=== PATIENT | male | born 1965 | race Caucasian/White ===

== ENCOUNTER 2018-08-09 11:53 | Inpatient (IN) | payer MEDICARE ==
[~2018-08-09] VITALS: Ht 177.8 cm; Wt 138.5 kg
[~2018-08-09 11:53] MED LIST: ASPIR 8181 MG PO; CYCLOBENZAPRINE10 MG PO; ESCITALOPRAM OX10 MG PO; GABAPENTIN300 MG PO; LASIX40 MG PO; LIPITOR80 MG PO; LISINOPRIL5 MG PO; METOPROLOL TART50 MG PO; MORGIDOX100 MG PO; MORPHINE SULFAT30 M2 PO; NORCO 10MG-325MG1 EA PO
--- OUTSIDE RECORDS SUMMARY | 2018-08-09 11:58 | XMS REPORT | Clinical Summary ---
Author Author [facility] Organization [facility] Address Unknown Phone Unavailable Care Team Providers Care Head Porter Baggage Name Role Phone Gurinder Capps DO PCP Allergies Comments Active Allergy Reactions Severity Noted Date Penicillins 02/12/2017 Medications End Date Status Medication Sig Dispensed Refills Start Date Active atorvastatin (LIPITOR) 80 Take 80 mg by 0 MG tablet mouth daily. Active metoprolol tartrate Take 50 mg by 0 (LOPRESSOR) 50 mg tablet mouth 2 (two) times a day. Active morPHINE (MS CONTIN) 30 Take 30 mg by 0 MG 12 hr tablet mouth every 12 (twelve) hours. Active furosemide (LASIX) 40 mg Take 40 mg by 0 tablet mouth 2 (two) times a day. Active aspirin (ECOTRIN) 81 MG Take 81 mg by 0 enteric coated tablet mouth daily. Active lisinopril Take 5 mg by 0 (PRINIVIL,ZESTRIL) 5 mg mouth daily. tablet Active HYDROcodone-acetaminophen Take 1 tablet 0 (NORCO) 10-325 mg per by mouth tablet every 6 (six) hours as needed for moderate pain (max 4 tablets per day). Active cyclobenzaprine Take 10 mg by 0 (FLEXERIL) 10 mg tablet mouth 3 (three) times a day. Active gabapentin (NEURONTIN) Take 600 mg 0 600 mg tablet by mouth 3 (three) times a day. Active escitalopram (LEXAPRO) 10 Take 10 mg by 0 MG tablet mouth daily. Active nystatin-triamcinolone Apply 0 (MYCOLOG) 100,000-0.1 topically as unit/gram-% ointment needed (both feet). Active insulin asp prt-insulin Inject 70 0 ASPART (NovoLOG 70/30) Units under 100 unit/mL (70-30) the skin injection daily with breakfast. Active insulin asp prt-insulin Inject 65 0 ASPART (NovoLOG 70/30) Units under 100 unit/mL (70-30) the skin injection nightly. 04/05/2018 doxycycline (VIBRAMYCIN) Take 1 20 capsule 0 100 MG capsule capsule (100 8 mg total) by mouth 2 (two) times a day for 10 days. 04/05/2018 clindamycin (CLEOCIN HCL) Take 1 30 capsule 0 300 MG capsule capsule (300 8 mg total) by mouth 3 (three) times a day for 10 days. Active Problems Problem Noted Date Cellulitis and abscess of foot 03/22/2018 Dehydration 02/13/2017 Encounters Care Team Description Date Type Specialty Teddy Cruz MD Morris, David, DO Berberian, Esteban N., MD Cellulitis and abscess of foot (Primary Dx); Sepsis, due to unspecified organism 03/22/2018 [facility] General Internal Medicine - Encounter 03/26/2018 after 08/08/2017 Family History Medical History Relation Name Comments Diabetes Father Heart disease Father Diabetes Mother Heart disease Mother Relation Name Status Comments Father Mother Social History Date Tobacco Use Types Packs/Day Years Used Never Smoker Smokeless Tobacco: Never Used Alcohol Use Drinks/Week oz/Week Comments No Sex Assigned at Date Recorded Not on file Industry Job Start Date Occupation Not on file Not on file Not on file Travel End Travel History Travel Start No recent travel history available. Last Filed Vital Signs Time Taken Vital Sign Reading 03/26/2018 3:58 PM CDT Blood Pressure 121/70 03/26/2018 3:58 PM CDT Pulse 71 03/26/2018 3:58 PM CDT Temperature 36.2 C (97.2 F) 03/26/2018 3:58 PM CDT Respiratory Rate 18 03/26/2018 3:58 PM CDT Oxygen Saturation 99% - Inhaled Oxygen - Concentration 03/22/2018 7:24 PM CDT Weight 141 kg (310 lb) 03/22/2018 7:24 PM CDT Height 177.8 cm (5' 10") 03/22/2018 7:24 PM CDT Body Mass Index 44.48 Plan of Treatment Health Maintenance Due Date Last Done Comments COLON CANCER SCREENING 2014 SHINGRIX VACCINE (1 of 2) 2014 INFLUENZA VACCINE 03/30/2018 HEPATITIS B VACCINES Aged Out No longer eligible based on patient's age to complete this topic IPV VACCINES Aged Out No longer eligible based on patient's age to complete this topic MENINGOCOCCAL VACCINE Aged Out No longer eligible based on patient's age to complete this topic Procedures Comments Procedure Name Priority Date/Time Associated Diagnosis POC GLUCOSE Routine 03/26/2018 4:39 PM CDT ZZESTIMATED GFR Timed 03/26/2018 11:51 AM CDT BASIC METABOLIC PANEL Timed 03/26/2018 11:51 AM CDT POC GLUCOSE Routine 03/26/2018 11:26 AM CDT POC GLUCOSE Routine 03/26/2018 7:00 AM CDT POC GLUCOSE Routine 03/25/2018 8:21 PM CDT POC GLUCOSE Routine 03/25/2018 4:47 PM CDT VANCOMYCIN LEVEL, TROUGH STAT 03/25/2018 12:12 PM CDT ECHOCARDIOGRAM 2D Routine 03/25/2018 COMPLETE W MMODE SPECTRAL 11:19 AM CDT COLOR DOPPLER ([id number]) POC GLUCOSE Routine 03/25/2018 11:14 AM CDT POC GLUCOSE Routine 03/25/2018 7:07 AM CDT POC GLUCOSE Routine 03/24/2018 8:54 PM CDT POC GLUCOSE Routine 03/24/2018 4:16 PM CDT POC GLUCOSE Routine 03/24/2018 11:10 AM CDT POC GLUCOSE Routine 03/24/2018 6:38 AM CDT POC GLUCOSE Routine 03/23/2018 8:37 PM CDT POC GLUCOSE Routine 03/23/2018 4:44 PM CDT POC GLUCOSE Routine 03/23/2018 11:45 AM CDT POC GLUCOSE Routine 03/23/2018 9:09 AM CDT BLOOD CULTURE, AEROBIC & Routine 03/22/2018 ANAEROBIC 11:05 PM CDT LACTIC ACID LEVEL, SEPSIS Timed 03/22/2018 - NOW AND REPEAT 2X EVERY 11:00 PM CDT 3 HOURS BLOOD CULTURE, AEROBIC & Routine 03/22/2018 ANAEROBIC 10:55 PM CDT XR FOOT 3+ VW RIGHT STAT 03/22/2018 9:35 PM CDT ECG ED PRELIMINARY Routine 03/22/2018 INTERPRETATION 9:05 PM CDT CO CRITICAL CARE, E/M Routine 03/22/2018 30-74 MINUTES 9:05 PM CDT ECG 12-LEAD STAT 03/22/2018 7:52 PM CDT ZZESTIMATED GFR STAT 03/22/2018 7:39 PM CDT BETA HYDROXYBUTYRATE STAT 03/22/2018 7:39 PM CDT COMPREHENSIVE METABOLIC STAT 03/22/2018 PANEL 7:39 PM CDT HC COMPLETE BLD COUNT STAT 03/22/2018 W/AUTO DIFF 7:39 PM CDT POC GLUCOSE Routine 03/22/2018 7:23 PM CDT after 08/08/2017 Results * POC glucose (03/26/2018 4:39 PM CDT) Only the most recent of 16 results within the time period is included. POC glucose 139 (H) 65 - 100 mg/dL [facility] Comment: PATHOLOGY AND Meter ID: [id number] GENOMIC MEDICINE Sharepoint Application Developer: Thania Sims Performing Organization Address City/State/Zipcode Phone Number [facility] [address] [place] [address] PATHOLOGY AND GENOMIC MEDICINE * Estimated GFR (03/26/2018 11:51 AM CDT) Only the most recent of 2 results within the time period is included. GFR Non Af Amer >90 mL/min/1.73 m2 [facility]OLOGY AND [employer] GFR Af Amer >90 mL/min/1.73 m2 [facility] Comment: PATHOLOGY AND Chronic kidney disease: <60 GENOMIC MEDICINE mL/min/1.73m2 Kidney failure: <15 mL/min/1.73m2 The estimated GFR is calculated from the IDMS-traceable Modification of Diet in Renal Disease Equation. The accuracy of the calculation is poor when the creatinine is normal. Calculated values >90 mL/min/1.73m2 are not reported. This equation has not been validated in children (<18 years), women, the elderly (>70 years), or ethnic groups other than Caucasians and Americans. Specimen Plasma specimen Performing Organization Address City/[facility]/Zipcode Phone Number [place] [address] [place], [place] [id number] [place] [address] AND [facility] * Basic metabolic panel (03/26/2018 11:51 AM CDT) Sodium 140 135 - 150 mEq/L [facility]OLOGY AND [employer] Potassium 3.8 3.5 - 5.0 mEq/L [facility] PATHOLOGY AND [facility] Chloride 100 98 - 112 mEq/L [facility] PATHOLOGY AND [employer] CO2 31 24 - 31 mmol/L [facility]OLOGY AND [employer] Anion gap 9@ANIO 7 - 15 mEq/L [facility]OLOGY AND [employer] BUN 9 7 - 18 mg/dL [facility]OLOGY AND [facility] Creatinine 0.60 (L) 0.70 - 1.20 mg/dL [facility] PATHOLOGY AND [facility] Glucose 214 (H) 65 - 100 mg/dL [facility]OLOGY AND [facility] Calcium 8.6 8.3 - 10.2 mg/dL [facility] PATHOLOGY AND [facility] Specimen Plasma specimen Performing Organization Address City/State/Zipcode Phone Number [place] [address] [place], [place] [phone] [place] [address] [facility] * Vancomycin level, trough (03/25/2018 12:12 PM CDT) Vancomycin, trough 15.3 10.0 - 20.0 ug/mL [facility] Comment: PATHOLOGY AND Therapeutic Ranges: [facility] MEDICINE Peak30.0 - 40.0 ug/mL Enouzr04.0 - 20.0 ug/mL Specimen Blood Performing Organization Address City/State/Zipcode Phone Number [facility] [place] [address] PATHOLOGY AND GENOMIC MEDICINE * Echocardiogram complete w contrast and 3D if needed (03/25/2018 11:19 AM CDT) Ao Root Diameter 2.94 cm [facility] AoV Area, Vmax 2.56 cm2 [facility] AoV Area, VTI 3.03 cm2 [facility] AoV Mean PG 1.56 mmHg [facility] AoV Peak PG 3.60 mmHg [facility] AoV Vmax 0.95 m/s [facility] AoV VTI 0.17 m [facility] IVS,d 0.88 cm [facility] IVS/LVPW,2D 0.96 [facility] LV,d 4.86 cm [facility] LV EF,2D 68.78 % [facility] LV,s 3.30 cm [facility] LVOT area 2.89 cm2 [facility] LVOT Diam,S 1.92 cm [facility] LVOT Vmax 0.84 m/s [facility] LVOT VTI 0.18 m [facility] LVPWD,d 0.92 cm [facility] TR Vpeak 2.58 mm/s [facility] MV E A ratio 1.34 mmHg [facility] TR pk grad 26.64 mmHg [facility] E wave decelartion time 162.21 msec [facility] MV Peak A Evan 0.76 m/s [facility] MV valve area p 1/2 4.68 cm2 [facility] method MV Peak E Evan 1.02 m/s [facility] MV stenosis pressure 1/2 47.04 ms [facility] time AV LVOT peak gradient 2.83 mmHg [facility] Ao Root Diameter 2.94 cm [facility] MV mean gradient 1.48 mmHg [facility] LV SYS VOL 44.13 ml [facility] LV COLLINS VOL 110.90 ml [facility] LV SV Teich 2D 66.78 ml [facility] LV Vol s Teich PSAX 44.13 ml [facility] LVOT CO 4.02 l/min [facility] LVOT HR for LVOT CO 77.28 bpm [facility] MR peak grad 3.48 mmHg [facility] MV Vmax 0.93 m [facility] MV VTI Tips 0.20 m [facility] AoV Vmn 0.58 [facility] IVS s 2D 1.09 [facility] LV FS Teich 2D 32.16 [facility] MV AE ratio 0.75 [facility] LV FS Cube 2D 32.16 [facility] LVOT Vmn 0.63 [facility] Aov area Vmn 3.09 cm2 [facility] LVOT mean grad 1.69 mmHg [facility] MAX Pred HR 166.68 [facility] 85 of MPHR 141.68 [facility] Calc MPHR 166.68 bpm [facility] IVS pct thck PLAX 23.48 % [facility] LV SV Cube 2D 79.16 ml [facility] LV vol d cube 2D 115.09 ml [facility] LV vol s cube 2D 35.93 ml [facility] LVPW pct thck PLAX 36.29 % [facility] LVPW s PLAX 1.26 cm [facility] MV Decel slope 6.26 m/s2 [facility] Pred Exer Dur R1 9.73 [facility] Pred METS R1 10.00 [facility] Velocity Ratio (V1/V2) 0.88 m/s [facility] EF 60.21 % [facility] E/A ratio 1.34 [facility] Narrative Performed At [facility] The left ventricle chamber size is normal. There is mild left ventricular Left Ventricular ejection fraction is 50 - 55%. Left atrium size is mildly dilated. No pericardial effusion Spectral Doppler shows pseudonormal pattern of left ventricular diastolic filling. Performing Organization Address [facility] Phone Number [facility] [address] [place] [address] * Blood culture, aerobic & anaerobic (03/22/2018 11:05 PM CDT) Only the most recent of 2 results within the time period is included. Blood culture isolate No growth after 5 days of [facility] DEPARTMENT OF incubation. PATHOLOGY AND Comment: GENOMIC MEDICINE Specimen Information Specimen Source: Blood Specimen Site: R [facility] Specimen Blood Performing Organization Address City/State/Zipcode Phone Number [facility] DEPARTMENT OF [address] [place] [address] PATHOLOGY AND GENOMIC MEDICINE * Lactic acid level, SEPSIS - Now and repeat 2x every 3 hours (03/22/2018 11:00 PM CDT) Lactic acid 1.7 0.5 - 2.2 mmol/L [facility]OLOGY AND GENOMIC MEDICINE Specimen Blood Performing Organization Address City/State/Zipcode Phone Number [facility] [address] [place] [address] PATHOLOGY AND GENOMIC MEDICINE * XR Foot 3+ Vw Right (03/22/2018 9:35 PM CDT) Narrative Performed At EXAMINATION:XR FOOT 3VW RIGHT [facility] CLINICAL HISTORY:heel ulcer COMPARISON:None. IMPRESSION: No evidence of acute right foot fracture or dislocation. No radiographic evidence of osteomyelitis. Mild foot soft tissue swelling. [facility]-[id number] Procedure Note Hm Interface, Radiology Results Incoming - 03/22/2018 9:41 PM CDT EXAMINATION: XR FOOT 3 VW RIGHT CLINICAL HISTORY: heel ulcer COMPARISON: None. IMPRESSION: No evidence of acute right foot fracture or dislocation. No radiographic evidence of osteomyelitis. Mild foot soft tissue swelling. [facility]-[id number] Performing Organization Address [facility]/Zipcode Phone Number [facility] [address] [place] [address] * ECG ED Preliminary Interpretation - NOT AN ORDER (03/22/2018 9:05 PM CDT) Narrative Performed At Teddy Cruz MD 03/23/20186:03 PM ECG ED Preliminary Interpretation - Not an Order Performed by: TEDDY CRUZ Authorized by: TEDDY CRUZ ECG reviewed by ED Physician in the absence of a senior manager quality assurance: yes Interpretation: Interpretation: abnormal Rate: ECG rate:100 ECG rate assessment: tachycardic Rhythm: Rhythm: sinus rhythm Ectopy: Ectopy: none QRS: QRS axis:Normal Conduction: Conduction: normal ST segments: ST segments:Normal T waves: T waves: inverted Inverted:V2 and V3 Q waves: Q waves:III * CRITICAL CARE (03/22/2018 9:05 PM CDT) Narrative Performed At Teddy Cruz MD 03/23/20186:03 PM Critical Care Performed by: TEDDY CRUZ Authorized by: TEDDY CRUZ Critical care provider statement: Critical care time (minutes):33 Critical care time was exclusive of:Separately billable procedures and treating other patients Critical care was necessary to treat or prevent imminent or life-threatening deterioration of the following conditions:Sepsis Critical care was time spent personally by me on the following activities:Blood draw for specimens, ordering and performing treatments and interventions, development of treatment plan with patient or surrogate, discussions with consultants, ordering and review of radiographic studies, ordering and review of laboratory studies, pulse oximetry, discussions with primary provider, evaluation of patient's response to treatment, re-evaluation of patient's condition, review of old charts and examination of patient Mike 'yes' if you are taking over critical care for this patient from another provider.: no * ECG 12 lead (03/22/2018 7:52 PM CDT) Ventricular rate 100 [facility] Atrial rate 100 [facility] CO interval 164 [facility] QRSD interval 86 [facility] QT interval 346 [facility] QTC interval 446 [facility] P axis 1 69 [facility] QRS axis 1 145 [facility] T wave axis 72 [facility] EKG impression Sinus rhythm with fusion [facility] MUSE complexes-Baseline artifact-Low voltage QRS-Left posterior fascicular block-Cannot rule out Inferior infarct , age undetermined-Cannot rule out Anterior infarct , age undetermined-Abnormal ECG-In automated comparison with ECG of 12-FEB-2017 22:12,-fusion complexes are now present-aberrant conduction is no longer present-CO interval has decreased-Left posterior fascicular block is now present- Performing Organization Address City/State/Zipcode Phone Number [facility] [address] [place] [address] * Beta hydroxybutyrate (03/22/2018 7:39 PM CDT) Beta hydroxybutyrate 1.58 (H) 0.02 - 0.27 mmol/L [facility]OLOGY AND GENOMIC MEDICINE Specimen Blood Performing Organization Address City/State/Zipcode Phone Number [address] [address] PATHOLOGY AND GENOMIC MEDICINE * CBC with platelet and differential (03/22/2018 7:39 PM CDT) WBC 10.9 4.2 - 11.0 k/uL [facility]OLOGY AND GENOMIC MEDICINE RBC 4.82 4.04 - 5.86 m/uL [facility] PATHOLOGY AND GENOMIC MEDICINE HGB 12.9 (L) 13.0 - 17.3 g/dL [facility] OF PATHOLOGY AND GENOMIC MEDICINE HCT 41.3 34.0 - 45.0 % [facility] OF PATHOLOGY AND GENOMIC MEDICINE MCV 85.7 80.0 - 98.0 fL [facility] PATHOLOGY AND GENOMIC MEDICINE MCH 26.8 (L) 27.0 - 34.0 pg [facility] OF PATHOLOGY AND GENOMIC MEDICINE MCHC 31.2 (L) 31.5 - 36.5 g/dL [facility] OF PATHOLOGY AND GENOMIC MEDICINE RDW - SD 41.4 37.0 - 51.0 fL [facility] OF PATHOLOGY AND GENOMIC MEDICINE MPV 10.2 7.4 - 10.4 fL [facility] OF PATHOLOGY AND GENOMIC MEDICINE Platelet count 330 150 - 400 k/uL [facility] PATHOLOGY AND GENOMIC MEDICINE Nucleated RBC 0.00 /100 WBC [facility] PATHOLOGY AND GENOMIC MEDICINE Neutrophils 69.8 (H) 36.0 - 66.0 % [facility] OF PATHOLOGY AND GENOMIC MEDICINE Lymphocytes 20.4 (L) 24.0 - 44.0 % [facility] OF PATHOLOGY AND GENOMIC MEDICINE Monocytes 8.2 (H) 0.0 - 6.0 % [facility] OF PATHOLOGY AND GENOMIC MEDICINE Eosinophils 0.6 0.0 - 6.0 % [facility] PATHOLOGY AND GENOMIC MEDICINE Basophils 0.4 0.0 - 1.2 % [facility] PATHOLOGY AND GENOMIC MEDICINE Immature granulocytes 0.6 0.0 - 1.0 % [facility] OF PATHOLOGY AND GENOMIC MEDICINE Specimen Blood Performing Organization Address City/State/Zipcode Phone Number [place] [address] [place] [address] PATHOLOGY AND GENOMIC MEDICINE * Comprehensive metabolic panel (03/22/2018 7:39 PM CDT) Sodium 136 135 - 150 mEq/L [facility] OF PATHOLOGY AND GENOMIC MEDICINE Potassium 4.2 3.5 - 5.0 mEq/L [facility] OF PATHOLOGY AND GENOMIC MEDICINE Chloride 94 (L) 98 - 112 mEq/L [facility] OF PATHOLOGY AND GENOMIC MEDICINE CO2 24 24 - 31 mmol/L [facility] PATHOLOGY AND GENOMIC MEDICINE Anion gap 18@ANIO (H) 7 - 15 mEq/L [facility] PATHOLOGY AND GENOMIC MEDICINE BUN 10 7 - 18 mg/dL [facility] OF PATHOLOGY AND GENOMIC MEDICINE Creatinine 0.60 (L) 0.70 - 1.20 mg/dL [facility] OF PATHOLOGY AND GENOMIC MEDICINE Glucose 275 (H) 65 - 100 mg/dL [facility] OF PATHOLOGY AND GENOMIC MEDICINE Calcium 9.4 8.3 - 10.2 mg/dL [facility] OF PATHOLOGY AND GENOMIC MEDICINE Protein 7.9 6.3 - 8.3 g/dL [facility] OF PATHOLOGY AND GENOMIC MEDICINE Albumin 3.5 3.5 - 5.0 g/dL [facility] OF PATHOLOGY AND GENOMIC MEDICINE A/G ratio 0.8 0.7 - 3.8 [facility] OF PATHOLOGY AND GENOMIC MEDICINE Alkaline phosphatase 63 0 - 129 U/L [facility] OF PATHOLOGY AND GENOMIC MEDICINE AST 17 10 - 50 U/L [facility] OF PATHOLOGY AND GENOMIC MEDICINE ALT 16 5 - 50 U/L [facility] OF PATHOLOGY AND GENOMIC MEDICINE Total bilirubin 0.4 0.2 - 1.2 mg/dL [facility] OF PATHOLOGY AND GENOMIC MEDICINE Specimen Plasma specimen Performing Organization Address City/State/Zipcode Phone Number [facility] [place] [address] [place] [address] PATHOLOGY AND GENOMIC MEDICINE after 08/08/2017 Insurance Payer Benefit Subscriber ID Type Phone Address Plan / Group [employer] xxxxxxxxxxx [facility] Advance Directives Patient has advance care planning documents on file. For more information, jaida fisher contact: Farooq Martin [address] [place] [address]
--- OUTSIDE RECORDS SUMMARY | 2018-08-09 11:58 | XMS REPORT ---
Author Author [facility] Address Unknown Phone Unavailable Care Team Providers Care Employment Programs Analyst Name Role Phone Unavailable Unavailable Payers Payer Name Policy Type Policy Number Effective Date Expiration Date Problems This patient has no known problems. Allergies, Adverse Reactions, Alerts Allergy Name Allergy Type Status Severity Reaction(s) Onset Date Inactive Date Treating Clinician Comments Penicillins DA Active U 2012-08-08 00:00:00 Medications This patient has no known medications.
--- NOTE | 2018-08-09 12:30 | NUR ---
patient took 50mg metoprolol and 5mg lisinopril; ORI Winters made aware
[2018-08-09] MEDS ORDERED: VANCOMYCIN 1GM/NS 250 ML 250 ML IV ONE (12:45)
[2018-08-09] MEDS ORDERED: GABAPENTIN600 MG (14:05)
[2018-08-09 14:13] LABS: BASOPHILS % 0.4 % (0.0-1.0); EOSINOPHILS % 0.4 % (0.0-6.0); HEMATOCRIT 42.4 % (38.2-49.6); HEMOGLOBIN 13.3 g/dL (14.0-18.0); LYMPHOCYTES # (AUTO) 2.1 (1.0-3.2); MEAN CORPUSCULAR HEMOGLOBIN 26.4 pg (28-32); MEAN CORPUSCULAR HGB CONC 31.4 g/dL (31-35); MEAN CORPUSCULAR VOLUME 84.3 fL (81-99); MONOCYTES # (AUTO) 0.4 (0.2-0.8); MONOCYTES % 4.6 % (4.4-11.3); NEUTROPHILS # (AUTO) 6.8 (2.1-6.9); NEUTROPHILS % 72.2 % (38.7-80.0); PLATELET COUNT 466 x10e3/uL (140-360); RED BLOOD COUNT 5.03 x10e6/uL (4.3-5.7); RED CELL DISTRIBUTION WIDTH 13.3 % (11.7-14.4)
[2018-08-09 14:24] LABS: INR 0.87; PROTHROMBIN TIME 12.7 seconds (11.9-14.5)
[2018-08-09 14:25] LABS: PARTIAL THROMBOPLASTIN TIME 32.3 seconds (23.8-35.5)
--- NOTE | 2018-08-09 14:30 | Diagnostic Imaging Report ---
Exam: Right foot, 3 views History: Swelling and bleeding right forefoot, concern for osteomyelitis Comparison: None. Findings: No acute, displaced fracture or dislocation. No definite cortical erosive or destructive change. Joint spaces are well-maintained. Mild soft tissue swelling about the forefoot. Impression: Soft tissue swelling of the forefoot without plain film evidence of osteomyelitis. If there is strong clinical concern, 3 phase nuclear medicine bone scan or MRI with and without contrast may be obtained for more sensitive evaluation. Signed by: Dr. Luis Antonio Mcdonnell M.D. on 08/09/2018 2:27 PM
[2018-08-09 14:33] LABS: ALANINE AMINOTRANSFERASE 19 IU/L (0-55); ALBUMIN 3.6 g/dL (3.5-5.0); ALBUMIN/GLOBULIN RATIO 0.7 (0.8-2.0); ALKALINE PHOSPHATASE 78 IU/L (40-150); ANION GAP 17.4 mmol/L (8-16); BLOOD UREA NITROGEN 6 mg/dL (7-26); BUN/CREATININE RATIO 7 (6-25); CALCIUM 9.9 mg/dL (8.4-10.2); CARBON DIOXIDE 27 mmol/L (22-29); CHLORIDE 94 mmol/L (98-107); CREATININE, SERUM 0.87 mg/dL (0.72-1.25); EST GLOMERULAR FILTRATION RATE > 60 ML/MIN (60-); GLUCOSE 333 mg/dL (74-118); MAGNESIUM 2.2 MG/DL (1.3-2.1); POTASSIUM 4.4 mmol/L (3.5-5.1); SODIUM 134 mmol/L (136-145)
[2018-08-09] MEDS ORDERED: SODIUM CHLORIDE 0.9% 1000ML 1,000 ML ONE (15:36)
[2018-08-09] MEDS ORDERED: FENTANYL CITRATE/PF 100MCG/2 ML INJ ONE (15:37)
[2018-08-09] MEDS ORDERED: FENTANYL CITRATE/PF 100MCG/2 ML INJ IV ONE (15:45)
[2018-08-09] MEDS ORDERED: SODIUM CHLORIDE 0.9% 1000ML 1,000 ML IV SCH (15:45)
[2018-08-09] MEDS: SODIUM CHLORIDE 0.9% 1000ML 1,000 ML IV SCH ×2 (18:09→19:01)
[2018-08-09] MEDS ORDERED: DEXTROSE 50% SYRINGE 50 ML IV PRN (19:15)
--- OUTSIDE RECORDS SUMMARY | 2018-08-09 19:32 | XMS REPORT | Clinical Summary ---
Author Author [facility] Organization [facility] Address Unknown Phone Unavailable Care Team Providers Care Insurance Business Analyst Name Role Phone Gurinder Capps DO PCP [...] Dx); Sepsis, due to unspecified organism 03/22/2018 [facility] General Internal Medicine - Encounter 03/26/2018 after [...] MMODE SPECTRAL 11:19 AM CDT COLOR DOPPLER ([id number]) POC GLUCOSE Routine 03/25/2018 11:14 AM CDT [...] PRELIMINARY Routine 03/22/2018 INTERPRETATION 9:[address] CRITICAL CARE, E/M Routine 03/22/2018 30-74 MINUTES [...] glucose 139 (H) 65 - 100 mg/dL [facility] Comment: PATHOLOGY AND Meter ID: [id number] GENOMIC MEDICINE Physician Aide: Thania Sims Performing Organization Address City/State/Zipcode Phone Number [facility] [address] [place] [address] PATHOLOGY AND GENOMIC MEDICINE * Estimated GFR (03/26/2018 11:51 AM CDT) Only the most recent of 2 results within the time period is included. GFR Non Af Amer >90 mL/min/1.73 m2 [facility] PATHOLOGY AND [employer] MEDICINE GFR Af Amer >90 mL/min/1.73 m2 [facility] Comment: PATHOLOGY AND Chronic kidney [...] Americans. Specimen Plasma specimen Performing Organization Address City/[facility]/Zipcode Phone Number [place] [address] [place], [place] [id number] [place] [address] AND [employer] [facility] * Basic metabolic panel (03/26/2018 11:51 AM CDT) Sodium 140 135 - 150 mEq/L [facility]OLOGY AND [employer] MEDICINE Potassium 3.8 3.5 - 5.0 mEq/L [facility] PATHOLOGY AND [employer] MEDICINE Chloride 100 98 - 112 mEq/L [facility] PATHOLOGY AND [employer] MEDICINE CO2 31 24 - 31 mmol/L [facility] PATHOLOGY AND [employer] MEDICINE Anion gap 9@ANIO 7 - 15 mEq/L [facility] PATHOLOGY AND [employer] MEDICINE BUN 9 7 - 18 mg/dL [facility]OLOGY AND [employer] MEDICINE Creatinine 0.60 (L) 0.70 - 1.20 mg/dL [facility] PATHOLOGY AND [employer] MEDICINE Glucose 214 (H) 65 - 100 mg/dL [facility] PATHOLOGY AND [employer] MEDICINE Calcium 8.6 8.3 - 10.2 mg/dL [facility] PATHOLOGY AND [employer] MEDICINE Specimen Plasma specimen Performing Organization Address City/State/Zipcode Phone Number [place] [address] [place], [place] [id number] [place] [address] [employer] [facility] * Vancomycin level, trough (03/25/2018 12:12 PM CDT) Vancomycin, trough 15.3 10.0 - 20.0 ug/mL [facility] Comment: PATHOLOGY AND Therapeutic Ranges: [facility] MEDICINE Peak30.0 - 40.0 ug/mL Relabt70.0 - 20.0 ug/mL Specimen Blood Performing Organization Address City/State/Zipcode Phone Number [facility] [place] [address] PATHOLOGY AND GENOMIC MEDICINE * Echocardiogram complete [...] left ventricular diastolic filling. Performing Organization Address [facility] Phone Number [facility] [address] [place] [address] * Blood culture, aerobic & anaerobic (03/22/2018 11:05 PM CDT) Only the most recent of 2 results within the time period is included. Blood culture isolate No growth after 5 days of [facility] DEPARTMENT OF incubation. PATHOLOGY AND Comment: GENOMIC MEDICINE Specimen Information Specimen Source: Blood Specimen Site: R [facility] Specimen Blood Performing Organization Address City/State/Zipcode Phone Number [facility] DEPARTMENT OF [address] [place] [address] PATHOLOGY AND GENOMIC MEDICINE * Lactic acid level, SEPSIS - Now and repeat 2x every 3 hours (03/22/2018 11:00 PM CDT) Lactic acid 1.7 0.5 - 2.2 mmol/L [facility] PATHOLOGY AND GENOMIC MEDICINE Specimen Blood Performing Organization Address City/State/Zipcode Phone Number [facility] [address] [place] [address] PATHOLOGY AND GENOMIC MEDICINE * XR Foot 3+ Vw Right (03/22/2018 9:35 PM CDT) Narrative Performed At EXAMINATION:XR FOOT 3VW RIGHT [facility] CLINICAL HISTORY:heel ulcer COMPARISON:None. IMPRESSION: No evidence of acute right foot fracture or dislocation. No radiographic evidence of osteomyelitis. Mild foot soft tissue swelling. [facility]-[id number] Procedure Note Hm Interface, Radiology Results Incoming - 03/22/2018 9:41 PM CDT EXAMINATION: XR FOOT 3 VW RIGHT CLINICAL HISTORY: heel ulcer COMPARISON: None. IMPRESSION: No evidence of acute right foot fracture or dislocation. No radiographic evidence of osteomyelitis. Mild foot soft tissue swelling. [facility]-[id number] Performing Organization Address [facility]/Zipcode Phone Number [facility] [address] [place] [address] * ECG ED Preliminary Interpretation - NOT AN ORDER (03/22/2018 9:05 PM CDT) Narrative Performed At Teddy Cruz MD 03/23/20186:03 PM ECG ED Preliminary Interpretation - Not an Order Performed by: TEDDY CRUZ Authorized by: TEDDY CRUZ ECG reviewed by ED Physician in the absence of a mixed crop farmer: yes Interpretation: Interpretation: abnormal Rate: ECG rate:100 [...] [facility] Atrial rate [address] interval 164 [facility] QRSD interval 86 [facility] QT interval 346 [facility] QTC interval 446 [facility] P axis 1 69 [facility] QRS axis 1 145 [facility] T wave axis 72 [facility] EKG impression Sinus rhythm with fusion [facility] MUSE complexes-Baseline artifact-Low voltage QRS-Left posterior fascicular block-Cannot rule out Inferior infarct , age undetermined-Cannot rule out Anterior infarct , age undetermined-Abnormal ECG-In automated comparison with ECG of 12-FEB-2017 22:12,-fusion complexes are now present-aberrant conduction is no longer present-CT interval has decreased-Left posterior fascicular block is now present- Performing Organization Address City/State/Zipcode Phone Number [facility] [address] [place] [address] * Beta hydroxybutyrate (03/22/2018 7:39 PM CDT) Beta hydroxybutyrate 1.58 (H) 0.02 - 0.27 mmol/L [facility] OF PATHOLOGY AND GENOMIC MEDICINE Specimen Blood Performing Organization Address City/State/Zipcode Phone Number [address] [address] PATHOLOGY AND GENOMIC MEDICINE * CBC with platelet and differential (03/22/2018 7:39 PM CDT) WBC 10.9 4.2 - 11.0 k/uL [facility] PATHOLOGY AND GENOMIC MEDICINE RBC 4.82 4.04 - 5.86 m/uL [facility] PATHOLOGY AND GENOMIC MEDICINE HGB 12.9 (L) 13.0 - 17.3 g/dL [facility] PATHOLOGY AND GENOMIC MEDICINE HCT 41.3 34.0 - 45.0 % [facility] PATHOLOGY AND GENOMIC MEDICINE MCV 85.7 80.0 - 98.0 fL [facility] PATHOLOGY AND GENOMIC MEDICINE MCH 26.8 (L) 27.0 - 34.0 pg [facility] PATHOLOGY AND GENOMIC MEDICINE MCHC 31.2 (L) 31.5 - 36.5 g/dL [facility] PATHOLOGY AND GENOMIC MEDICINE RDW - SD 41.4 37.0 - 51.0 fL [facility] PATHOLOGY AND GENOMIC MEDICINE MPV 10.2 7.4 - 10.4 fL [facility] DEPARTMENT OF PATHOLOGY AND GENOMIC MEDICINE Platelet count 330 150 - 400 k/uL [facility] PATHOLOGY AND GENOMIC MEDICINE Nucleated RBC 0.00 /100 WBC [facility] PATHOLOGY AND GENOMIC MEDICINE Neutrophils 69.8 (H) 36.0 - 66.0 % [facility] PATHOLOGY AND GENOMIC MEDICINE Lymphocytes 20.4 (L) 24.0 - 44.0 % [facility] PATHOLOGY AND GENOMIC MEDICINE Monocytes 8.2 (H) 0.0 - 6.0 % [facility] PATHOLOGY AND GENOMIC MEDICINE Eosinophils 0.6 0.0 - 6.0 % [facility] PATHOLOGY AND GENOMIC MEDICINE Basophils 0.4 0.0 - 1.2 % [facility] PATHOLOGY AND GENOMIC MEDICINE Immature granulocytes 0.6 0.0 - 1.0 % [facility] PATHOLOGY AND GENOMIC MEDICINE Specimen Blood Performing Organization Address City/State/Zipcode Phone Number [place] [address] [place] [address] PATHOLOGY AND GENOMIC MEDICINE * Comprehensive metabolic panel (03/22/2018 7:39 PM CDT) Sodium 136 135 - 150 mEq/L [facility] PATHOLOGY AND GENOMIC MEDICINE Potassium 4.2 3.5 - 5.0 mEq/L [facility] PATHOLOGY AND GENOMIC MEDICINE Chloride 94 (L) 98 - 112 mEq/L [facility] PATHOLOGY AND GENOMIC MEDICINE CO2 24 24 - 31 mmol/L [facility] OF PATHOLOGY AND GENOMIC MEDICINE Anion gap 18@ANIO (H) 7 - 15 mEq/L [facility] PATHOLOGY AND GENOMIC MEDICINE BUN 10 7 - 18 mg/dL [facility] PATHOLOGY AND GENOMIC MEDICINE Creatinine 0.60 (L) 0.70 - 1.20 mg/dL [facility] PATHOLOGY AND GENOMIC MEDICINE Glucose 275 (H) 65 - 100 mg/dL [facility] PATHOLOGY AND GENOMIC MEDICINE Calcium 9.4 8.3 - 10.2 mg/dL [facility] PATHOLOGY AND GENOMIC MEDICINE Protein 7.9 6.3 - 8.3 g/dL [facility] PATHOLOGY AND GENOMIC MEDICINE Albumin 3.5 3.5 - 5.0 g/dL [facility] PATHOLOGY AND GENOMIC MEDICINE A/G ratio 0.8 0.7 - 3.8 [facility] PATHOLOGY AND GENOMIC MEDICINE Alkaline phosphatase 63 0 - 129 U/L [facility] PATHOLOGY AND GENOMIC MEDICINE AST 17 10 - 50 U/L [facility] PATHOLOGY AND GENOMIC MEDICINE ALT 16 5 - 50 U/L [facility] PATHOLOGY AND GENOMIC MEDICINE Total bilirubin 0.4 0.2 - 1.2 mg/dL [facility] PATHOLOGY AND GENOMIC MEDICINE Specimen Plasma specimen Performing Organization Address City/State/Zipcode Phone Number [facility] [place] [address] [place] [address] PATHOLOGY AND GENOMIC MEDICINE after 08/08/2017 Insurance Payer Benefit Subscriber ID Type Phone Address Plan / Group [employer] CIGNA xxxxxxxxxxx [facility] AD[facility] Advance Directives Patient has advance care planning documents on file. For more information, jaida fisher contact: Farooq Martin [address] [facility] [address]
[2018-08-09] MEDS: INSULIN REGULAR, HUMAN 100 UNIT/1 ML 3ML VIAL SQ SCH (21:00)
[2018-08-09 22:39] LABS: CHOL/HDL RATIO 2.6 (3.9-4.7)
--- NOTE | 2018-08-09 22:42 | NUR ---
RECEIVED PATIENT FROM THE ER PER STRETCHER, PLACED IN ROOM 179 IN THE BED, NO COMPLAINTS AT THIS TIME. CALL LIGHT REMAIN IN REACH. ASSSESSMENT IN PROGRESS.
--- NOTE | 2018-08-09 23:04 | History and Physical ---
PRIMARY CARE PHYSICIANS 1. Dr. Gurinder Capps. 2. Air Defence Officer, Dr. José Luis Ernandez. CHIEF COMPLAINT: Foot infection. HISTORY OF PRESENT ILLNESS: This is a 52-year-old male with a history of diabetes mellitus type 2 and diabetic foot ulcer, now developing an ulcer/infection at the right heel and right 5th toe. Has been managed by Dr. Ernandez, but now has been sent to be admitted for further management. Patient has some pain in the foot, about 4 to 5 out of 10. He denies any fever or chills. He denies any nausea, vomiting, or diarrhea. PAST MEDICAL HISTORY: Diabetes mellitus type 2; diabetic foot ulcer, status post left foot 4th and 5th digit amputations; myocardial infarction, status post stent in 2002. Patient is status post coronary artery bypass grafting in 2013, congestive heart failure, carotid artery stenosis as well as carotid endarterectomy. PAST SURGICAL HISTORY: Coronary artery bypass grafting 2013, coronary artery stents in 2002, left foot 4th and 5th digit amputations, and carotid endarterectomy. ALLERGIES: PER ELECTRONIC MEDICAL RECORD. FAMILY/SOCIAL HISTORY: Patient is . No alcohol or cigarettes. MEDICATIONS: Per electronic medical record. REVIEW OF SYSTEMS: Denies any fevers, chills, sweats, nausea, vomiting, diarrhea, headache, back pain, chest pain or vision change. PHYSICAL EXAM VITAL SIGNS: Reviewed. GENERAL: A tired-appearing man resting in bed. HEENT: Anicteric. CARDIOVASCULAR: Normal S1 and S2. LUNGS: He has moderate breath sounds. ABDOMEN: Soft, nontender, and nondistended. EXTREMITIES: He has bilateral lower extremity edema. He has left foot 4th and 5th digits absent with well-healed scar. He has a right foot heel with gangrenous changes. He has right foot 5th digit with gangrenous changes. SKIN: Dry. PSYCHIATRIC: Flat affect. NEUROLOGICAL: Alert, oriented x3. Moving all extremities. LABS: Reviewed. MEDICATIONS: Reviewed. ASSESSMENT AND PLAN: This is a 52-year-old man 1. Right heel gangrenous changes/right foot 5th digit gangrenous changes/diabetic foot ulcer. 2. Diabetes mellitus type 2. 3. Severe obesity, body mass index 40.6. 4. Malignant hypertension, blood pressure is as high as 208/109. 5. Lactic acidemia. 6. Coronary artery disease with history of stents. 7. Congestive heart failure, likely diastolic. 8. Hypertension. 9. Hyperlipidemia. PLAN 1. Continue IV vancomycin. 2. IV aztreonam. 3. Wound cultures and blood cultures. 4. Obtain hemoglobin A1c and lipid panel. 5. Podiatry consultation. 6. Diabetic diet. 7. Continue antihypertensive medications. 8. Continue anticholesterol medications. 9. Utilize Lovenox and Pepcid for prophylaxis. 10. Disposition: Podiatry consultation. Cultures on followup. Job#: [id number]
[2018-08-09 23:19] VITALS: BP 172/87
[2018-08-09] MEDS: ATORVASTATIN 40 MG TAB PO SCH (23:57)
[2018-08-09] MEDS: NIFEDIPINE CR 30 MG TAB PO SCH (23:57)
[2018-08-10] VITALS (8 sets, daily range): BP systolic 103–172; BP diastolic 61–87
[2018-08-10] MEDS: ENOXAPARIN SOD INJ 40 MG/0.4 ML SYR SC SCH ×2 (00:04→16:27)
[2018-08-10] MEDS ORDERED: GABAPENTIN 300 MG CAP PO ONE (00:15)
[2018-08-10] MEDS ORDERED: CYCLOBENZAPRINE HCL 10 MG TAB PO ONE (00:15)
[2018-08-10] MEDS ORDERED: AZTREONAM 1 GM VIAL ONE (05:35)
[2018-08-10] MEDS ORDERED: SODIUM CHLORIDE 0.9% 250ML 0 ML ONE (05:37)
[2018-08-10] MEDS: AZTREONAM 1 GM/NS 50 ML 50 ML IV SCH ×3 (06:00→22:45)
--- NOTE | 2018-08-10 06:48 | NUR ---
PATIENT RESTING IN BED, RECEIVING IV ANTIBIOTIC, CALL LIGHT REMAIN IN REACH. DRESSING REMAIN INTACT. WILL CONTINUE TO MONITOR.
[2018-08-10] MEDS ORDERED: MORPHINE SULFATE INJ 4 MG/ML INJ ONE (07:03)
[2018-08-10] MEDS: FAMOTIDINE 20 MG TAB PO SCH ×2 (07:10→16:26)
--- NOTE | 2018-08-10 07:25 | NUR ---
REPORT GIVEN TO AM NURSE.
[2018-08-10] MEDS: CYCLOBENZAPRINE HCL 10 MG TAB PO SCH ×3 (08:50→21:14)
[2018-08-10] MEDS: ESCITALOPRAM OXALATE 10 MG TAB PO SCH (08:50)
[2018-08-10] MEDS: METOPROLOL TARTRATE 50 MG TAB PO SCH ×2 (08:50→16:27)
[2018-08-10] MEDS: LISINOPRIL 10 MG TAB PO SCH (08:50)
[2018-08-10] MEDS: VANCOMYCIN 1GM/NS 250 ML 250 ML IV SCH ×2 (08:50→21:13)
[2018-08-10] MEDS: GABAPENTIN 300 MG CAP PO SCH ×3 (08:50→21:14)
[2018-08-10] MEDS: INSULIN REGULAR, HUMAN 100 UNIT/1 ML 3ML VIAL SQ SCH ×4 (08:55→21:00)
--- NOTE | 2018-08-10 10:30 | NUR ---
CASE MANAGEMENT INITIAL ASSESSMENT Vacuum Spindle Sander to bedside to discuss plan of care with patient/family. CM/SW role and care transitions discussed. Anticipated discharge plan discussed along with duration of care. CM/SW discussed patients right to make decisions in care. CM/SW work hours given. Patient lives: IN OWN HOUSE WITH FAMILY Admit/Transfer: VIA ED FROM HOME POA/Emergency contact: CECI [phone] Current/Previous Home Health: [facility] PCP/Follow-up Care: NEGRITA Current/Previous DME: [employer] WHEN NEEDED Other Services: NONE Employment Status: RETIRED Areas of Concerns: NONE Referral Needs: NONE Education Needs: NONE IMM/RIVERA given and signed (if applicable): RIVERA Goal for discharge: RETURN HOME INDEPENDENTLY CM/SW left business card at the bedside with contact information. Name and number was also written on the patients whiteboard. Patient verbalized understanding of discussion. CM will follow-up with ongoing discharge and transition of care needs.
[2018-08-10] MEDS: MORPHINE SULFATE 2 MG/ML SYR IV PRN (12:20)
[2018-08-10] MEDS: MORPHINE SULFATE INJ 4 MG/ML INJ IV PRN ×2 (12:20→18:40)
--- NOTE | 2018-08-10 14:26 | NUR ---
Nutrition Screen Note RD Recommendation for Physician: -Continue ADA diet as ordered -Pt refused diet education -08/10 Plan of Care: RD following, monitoring for tolerance and adequacy Nutrition reason for involvement: Dx unstageable wound Primary Diagnose(s): 1. Right heel gangrenous changes/right foot 5th digit gangrenous changes/diabetic foot ulcer. PMH: DM, CAD, diabetic foot ulcer, AL, CHF, HLD, HTN Ht: 70in Wt: 313lb BMI: 44.9kg/m2 IBW: 166lb RD Assessment: (08/10) Chart reviewed. Labs and meds reviewed. 52yo M, who is admitted for foot infection. HbA1c at 14.3%. During my visit, pt reports good appetite with 100% recorded PO intake. No GI complains noted. LBM 08/09. Pt has no teeth or denture and refused chopped diet when offered. Pt denies any swallowing difficulty. Pt has had hx of DM for over 20 years and been through multiple diabetes education. Pt refused any further diet education. Will continue to monitor and follow. Current Diet: ADA diet Malnutrition Evaluation (08/10) The patient does not meet criteria for a specified degree of malnutrition at this time. Will re-evaluate at follow-up as appropriate. Diet Education Needs Assessment: Diet education indicated, pt refused. Nutrition Care Level: low Signed: Marilynn Staley, , RD, LD
[2018-08-10] MEDS ORDERED: SODIUM CHLORIDE 0.9% 250ML 250 ML ONE (18:41)
--- NOTE | 2018-08-10 19:20 | NUR ---
PATIENT RECEIVED. PATIENT IS RESTING IN BED, AAOX3. RESP EVEN AND UNLABORED. NO ACUTE DISTRESS NOTED. RIGHT 5TH TOE GANGRENE NOTED, RIGHT HEEL PRESSURED WOUND NOTED. PATIENT STATED LEFT GREAT TOE NAIL FELL OFF, DRESSING INTACT NOTED. CALL LIGHT WITHIN REACH. INSTRUCT TO CALL FOR ASSISTANCE. BED LOW/LOCKED. CONTINUE TO MONITOR CLOSELY
--- NOTE | 2018-08-10 20:20 | NUR ---
DR LIMA WHO IS INSPECTOR MISSILE FOR DR MATTHEW CALLED BACK FOR CONSULTATION
[2018-08-10] MEDS: NIFEDIPINE CR 30 MG TAB PO SCH (21:00)
[2018-08-10] MEDS: ATORVASTATIN 40 MG TAB PO SCH (21:14)
--- NOTE | 2018-08-10 22:10 | NUR ---
TRANSFERRED PATIENT TO ROOM 210 WITH ALL BELONGINGS. VITAL SIGN STABLE AT THIS TIME.
--- NOTE | 2018-08-10 22:15 | NUR ---
Patient transferred from OBS via W/C. Assessment completed. AAO x 3. No complaints of pain. No signs of respiratory distress. Dressing to left foot clean, dry and intact. Patient refused re-dressing the wound stating the toe nail on his left great toe will fall off and that the dressing was keeping it in place. Wound on right heel open to air with skin around 5th toe appearing necrotic. Bed locked and in lowest position. Bed rails up x 2. Patient instructed to call for assistance when needed. Call light within reach.
[2018-08-11] VITALS (8 sets, daily range): BP systolic 121–151; BP diastolic 58–74
[2018-08-11] MEDS: MORPHINE SULFATE INJ 4 MG/ML INJ IV PRN ×3 (00:16→21:45)
[2018-08-11] MEDS: AZTREONAM 1 GM/NS 50 ML 50 ML IV SCH ×4 (06:33→22:45)
--- NOTE | 2018-08-11 07:09 | NUR ---
IM- progress note o/N; no events REVIEW OF SYSTEMS: Denies any fevers, chills, sweats, nausea, vomiting, diarrhea, headache, back pain, chest pain or vision change. PHYSICAL EXAM VITAL SIGNS: Reviewed. GENERAL: A tired-appearing man resting in bed. HEENT: Anicteric. CARDIOVASCULAR: Normal S1 and S2. LUNGS: He has moderate breath sounds. ABDOMEN: Soft, nontender, and nondistended. EXTREMITIES: He has bilateral lower extremity edema. He has left foot 4th and 5th digits absent with well-healed scar. He has a right foot heel with gangrenous changes. He has right foot 5th digit with gangrenous changes. SKIN: Dry. PSYCHIATRIC: Flat affect. NEUROLOGICAL: Alert, oriented x3. Moving all extremities. LABS: Reviewed. MEDICATIONS: Reviewed. ASSESSMENT AND PLAN: This is a 52-year-old man 1. Right heel gangrenous changes/right foot 5th digit gangrenous changes/diabetic foot ulcer. 2. Diabetes mellitus type 2. 3. Severe obesity, body mass index 40.6. 4. Malignant hypertension, blood pressure is as high as 208/109. 5. Lactic acidemia. 6. Coronary artery disease with history of stents. 7. Congestive heart failure, likely diastolic. 8. Hypertension. 9. Hyperlipidemia. PLAN 1. Continue IV vancomycin. 2. IV aztreonam. 3. Wound cultures and blood cultures. 4. Obtain hemoglobin A1c and lipid panel. 5. Podiatry consultation. 6. Diabetic diet. 7. Continue antihypertensive medications. 8. Continue anticholesterol medications. 9. Utilize Lovenox and Pepcid for prophylaxis. 10. Disposition: Podiatry consultation. Cultures on followup. 08/10 Hba1c 14.3, LD 55. f/u cx; cont iv abx; f/u podiatry 08/11 ESR 48; GNR in wound; cont abx; Law Vale MD, PhD.
[2018-08-11] MEDS: INSULIN REGULAR, HUMAN 100 UNIT/1 ML 3ML VIAL SQ SCH ×4 (08:00→21:00)
[2018-08-11] MEDS ORDERED: INSULIN DETEMIR 100 UNIT/ML PEN SQ SCH (09:00)
--- NOTE | 2018-08-11 09:01 | NUR ---
WOUND CARE CONSULTATION. 52 YEAR OLD MALE ADMITTED TO [facility] WITH DX OF CELLULITIS AND FOOT ULCER. HEAD TO TOE SKIN ASSESSMENT PERFORMED TODAY, PT PRESENTS WITH A WAGNERS I DIABETIC FOOT ULCER TO RIGHT MEDIAL FIFTH TOE THAT MEASURES APPROXIMATELY 2X1.5X0.2CM, AND A WAGNERS II DIABETIC FOOT ULCER TO RIGHT HEEL. 4.2X3.2X0.2 80% FIBROTIC AND ESCHAR. MAL ODOR IS PRESENT. WOUND CX PENDING, PT ON IV ABX. 3+EDEMA TO BILATERAL LOWER EXTREMITIES. NO PALPABLE PULSES. PT STATES HE HAD VASCULAR STUDIES PERFORMED 4 YEARS AGO AN HE WAS TOLD EVERYTHING WAS FINE. RECOMMEND TO REPEAT ARTERIAL DOPLERSS. PT STATES THAT ULCERS HAVE PRESENT FOR ABOUT 3 WEEKS, HE INITIALLY WENT TO ER AT [facility] AND WAS DISCHARGED HOME THE SAME DAY. ULCERS DID NOT IMPROVED SO HE DECIDED TO SEE DR. CHRISTIANO MATTHEW AT THE OUTPATIENT CLINIC AND SENT PT TO ER IMMEDIATELY. LABS: WBC: 9.37 ESR: 48 GLUCOSE: 265 ALB: 3.6 WOUND CX PENDING. RIGHT FOOT X-RAY SHOWS SOFT TISSUE SWELLING OF THE FOREFOOT WITHOUT PLAIN FILM OF EVIDENCE OF OSTEOMYELITIS. RECOMMENDATIONS: CLEAN RIGHT MEDIAL FIFTH TOE AND RIGHT HEEL WITH NS, APPLY SANTYL WITH DILUTED BETADINE WET TO DRY DRESSING AND COVER WITH 4X4 GAUZE, KRLIX AND TAPE. CHANGE DRESSING DAILY REPEAT ARTERIAL DOPLERS. PROVIDE PT WITH BILATERAL HEEL PROTECTORS AND PILLOW SUSPENSIONS. THANKS FOR THIS CONSULTATION. Addendum: 08/11/18 at 0917 by Stephanie Patel RN Amended: Links added.
--- NOTE | 2018-08-11 09:10 | NUR ---
Visit made by the Spiritual Care Department Pastoral Visitor, Joon Ramírez. PV provided pastoral presence, hospitality, and supportive listening. Pastoral Visitor informed pt/family of the scope of Contact Center Assistant Services and availability. JANAK ROBBINS Turkey Cleaner Spiritual Care Department O: [phone] Pager: [phone] ([phone] number calling from)
[2018-08-11] MEDS: CYCLOBENZAPRINE HCL 10 MG TAB PO SCH ×3 (09:35→21:39)
[2018-08-11] MEDS: GABAPENTIN 300 MG CAP PO SCH ×3 (09:35→21:39)
[2018-08-11] MEDS: FAMOTIDINE 20 MG TAB PO SCH ×2 (09:35→17:14)
[2018-08-11] MEDS: METOPROLOL TARTRATE 50 MG TAB PO SCH ×2 (09:35→17:13)
[2018-08-11] MEDS: LISINOPRIL 10 MG TAB PO SCH (09:35)
[2018-08-11] MEDS: MORPHINE SULFATE 2 MG/ML SYR IV PRN (09:35)
[2018-08-11] MEDS: ESCITALOPRAM OXALATE 10 MG TAB PO SCH (09:35)
[2018-08-11] MEDS: VANCOMYCIN 1GM/NS 250 ML 250 ML IV SCH ×2 (10:00→21:39)
--- NOTE | 2018-08-11 12:54 | NUR ---
Met pt at bedside. Provided CM business card and wrote information on board for any questions and concerns.
[2018-08-11] MEDS: ENOXAPARIN SOD INJ 40 MG/0.4 ML SYR SC SCH (17:13)
--- NOTE | 2018-08-11 18:21 | Consultation ---
DATE OF CONSULTATION: August 11, 2018 PODIATRY CONSULTATION HISTORY OF PRESENT ILLNESS: Mr. Madera is a pleasant male seen several days ago in my office secondary to a nonhealing diabetic ulceration, sent by the primary care physician, Dr. Capps. When I saw the patient as outpatient, I recommended immediate inpatient management secondary to malodor and extensive erythema and edema associated to his right foot, particularly the heel area. He has been receiving wound care and IV antibiotics for several days and seems to have the extremity improved. PAST MEDICAL HISTORY: Remarkable for 1. Type 2 diabetes. 2. History of diabetic complications including foot complications. 3. Obesity. 4. CAD. 5. PAD. SURGICAL HISTORY: CABG, with left foot partial ray amputations and carotid endarterectomies. ALLERGIES: AZITHROMYCIN. MEDICINES: Please see MAR for current medication list. REVIEW OF SYSTEMS: At this point negative. PHYSICAL EXAMINATION: GENERAL: AO x3, NAD. HEENT: Normocephalic, atraumatic, anicteric. ABDOMEN: Soft, nontender, nondistended. RESPIRATORY: Symmetrical expansion. No distress. PSYCHIATRIC: Normal affect. EXTREMITIES: Indeed edema associated to right lower extremity although indeed improved. There is a lesion to the plantar lateral aspect of the heel area measuring roughly 2 cm in diameter with 0.2 depth, almost completely escharotic, a little fluctuance, no soft-tissue crepitus. Site erythema is noted. DIAGNOSTIC DATA: X-rays were benign. LAB DATA: Hemoglobin A1c of 14.3. Sed rate 48. WBC within normal limits. ASSESSMENT: Diabetic foot infection with concomitant diabetic ulceration. PLAN: Recommend wound debridement. This will be done bedside tomorrow. In the interim, continue local wound care, Betadine wet-to-dry for now. Ultimately he will benefit from Santyl collagenase if tissues are deemed appropriate after debridement. Continue once again local wound care and IV antibiotics. Will monitor subsequently for clinical progression. Job#: [id number] SACHIN
--- NOTE | 2018-08-11 19:30 | NUR ---
Patient received sitting up in bed. AAO x 3. No complaints of pain. Respirations even and non-labored. Call light within reach.
[2018-08-11] MEDS: NIFEDIPINE CR 30 MG TAB PO SCH (21:00)
[2018-08-11] MEDS: ATORVASTATIN 40 MG TAB PO SCH (21:39)
[2018-08-12] VITALS (9 sets, daily range): BP systolic 120–154; BP diastolic 58–92
--- NOTE | 2018-08-12 03:25 | NUR ---
Wound dressing performed per MD's orders. Patient tolerated well.
--- NOTE | 2018-08-12 04:10 | NUR ---
Patient informed of recommended procedure---Ulcer debridement of right foot at bedside. Patient verbalized understanding. Patient voluntarily signed "Disclosure and Consent" form.
[2018-08-12] MEDS: MORPHINE SULFATE INJ 4 MG/ML INJ IV PRN ×3 (05:58→18:33)
[2018-08-12] MEDS: AZTREONAM 1 GM/NS 50 ML 50 ML IV SCH ×2 (06:15→14:50)
--- NOTE | 2018-08-12 06:54 | NUR ---
Shift report given to oncoming nurse. Patient in stable condition.
[2018-08-12] MEDS: INSULIN REGULAR, HUMAN 100 UNIT/1 ML 3ML VIAL SQ SCH ×4 (07:30→21:00)
[2018-08-12] MEDS: FAMOTIDINE 20 MG TAB PO SCH ×2 (07:45→17:30)
[2018-08-12] MEDS: VANCOMYCIN 1GM/NS 250 ML 250 ML IV SCH ×2 (08:00→21:27)
[2018-08-12] MEDS: ESCITALOPRAM OXALATE 10 MG TAB PO SCH (09:00)
[2018-08-12] MEDS: LISINOPRIL 10 MG TAB PO SCH (09:00)
[2018-08-12] MEDS: GABAPENTIN 300 MG CAP PO SCH ×3 (09:00→21:27)
[2018-08-12] MEDS: CYCLOBENZAPRINE HCL 10 MG TAB PO SCH ×3 (09:00→21:27)
[2018-08-12] MEDS: METOPROLOL TARTRATE 50 MG TAB PO SCH ×2 (09:00→17:30)
[2018-08-12] MEDS ORDERED: INSULIN DETEMIR 100 UNIT/ML PEN SQ SCH (09:00)
--- NOTE | 2018-08-12 13:09 | Operative Report ---
DATE OF PROCEDURE: August 12, 2018 PREOPERATIVE DIAGNOSIS: Full-thickness diabetic ulceration, right heel. POSTOPERATIVE DIAGNOSIS: Full-thickness diabetic ulcer, right heel. PROCEDURE: Sharp excisional debridement through subcutaneous tissues removing both nonviable and viable tissue. PEDIATRIC DENTAL ASSISTANT: None. LOCATION: Bedside. ANESTHESIA: None. HEMOSTASIS: Local. PROCEDURE: While at bedside, a #10 blade and pickups were utilized to debride and excise nonviable tissue from the heel wound that is approximately 2.5 cm in diameter at the most. Both nonviable and viable tissue excised sharply through the subcutaneous tissues. A healthy wound base was established. Hemostasis was achieved. Dressing was then applied. Educated on nonweightbearing, local wound care, monitor for clinical course. Pending discharge on Wednesday if all goes well. Job#: [id number] PA
[2018-08-12] MEDS: COLLAGENASE OINTMENT 30 GM TUBE TP SCH (14:21)
[2018-08-12] MEDS: ENOXAPARIN SOD INJ 40 MG/0.4 ML SYR SC SCH (17:30)
--- NOTE | 2018-08-12 19:05 | NUR ---
Received patient in bed watching tv. Denies pain at this time. Last pain med given prior to shift change. Noted bandage to R foot intact, dry, and no drainage. No S/S of resp distress. call light within reach and instructed to call for assistance.
[2018-08-12] MEDS: ATORVASTATIN 40 MG TAB PO SCH (21:27)
[2018-08-12] MEDS: NIFEDIPINE CR 30 MG TAB PO SCH (21:28)
[2018-08-13] VITALS (7 sets, daily range): BP systolic 122–184; BP diastolic 60–87
[2018-08-13] MEDS: MORPHINE SULFATE INJ 4 MG/ML INJ IV PRN ×4 (00:31→21:30)
[2018-08-13] MEDS: AZTREONAM 1 GM/NS 50 ML 50 ML IV SCH ×3 (05:22→21:30)
[2018-08-13] MEDS ORDERED: INFLUENZA VIRUS VAC SPLIT INJ 0.5 ML SYR IM ONE (05:30)
--- NOTE | 2018-08-13 07:15 | NUR ---
IM- progress note o/N; no events REVIEW OF SYSTEMS: Denies any fevers, chills, sweats, nausea, vomiting, diarrhea, headache, back pain, chest pain or vision change. PHYSICAL EXAM VITAL SIGNS: Reviewed. GENERAL: A tired-appearing man resting in bed. HEENT: Anicteric. CARDIOVASCULAR: Normal S1 and S2. LUNGS: He has moderate breath sounds. ABDOMEN: Soft, nontender, and nondistended. EXTREMITIES: He has bilateral lower extremity edema. He has left foot 4th and 5th digits absent with well-healed scar. He has a right foot heel with gangrenous changes. He has right foot 5th digit with gangrenous changes. SKIN: Dry. PSYCHIATRIC: Flat affect. NEUROLOGICAL: Alert, oriented x3. Moving all extremities. LABS: Reviewed. MEDICATIONS: Reviewed. ASSESSMENT AND PLAN: This is a 52-year-old man 1. Right heel gangrenous changes/right foot 5th digit gangrenous changes/diabetic foot ulcer. 2. Diabetes mellitus type 2. 3. Severe obesity, body mass index 40.6. 4. Malignant hypertension, blood pressure is as high as 208/109. 5. Lactic acidemia. 6. Coronary artery disease with history of stents. 7. Congestive heart failure, likely diastolic. 8. Hypertension. 9. Hyperlipidemia. PLAN 1. Continue IV vancomycin. 2. IV aztreonam. 3. Wound cultures and blood cultures. 4. Obtain hemoglobin A1c and lipid panel. 5. Podiatry consultation. 6. Diabetic diet. 7. Continue antihypertensive medications. 8. Continue anticholesterol medications. 9. Utilize Lovenox and Pepcid for prophylaxis. 10. Disposition: Podiatry consultation. Cultures on followup. 08/10 Hba1c 14.3, LD 55. f/u cx; cont iv abx; f/u podiatry 08/11 ESR 48; GNR in wound; cont abx; 08/12 Vanco trough 9, titrate insulin up; Proteus mirabilis and Enterococcus infections in wound; debridement pending today. 08/13 Proteus/Enterococcus/E.coli infected wound; cont abx; check labs; Law Vale MD, PhD.
[2018-08-13 08:03] LABS: BASOPHILS % 0.4 % (0.0-1.0); EOSINOPHILS # (AUTO) 0.3 (0.0-0.4); EOSINOPHILS % 4.1 % (0.0-6.0); HEMATOCRIT 34.3 % (38.2-49.6); HEMOGLOBIN 10.6 g/dL (14.0-18.0); LYMPHOCYTES # (AUTO) 2.3 (1.0-3.2); LYMPHOCYTES % 31.4 % (18.0-39.1); MEAN CORPUSCULAR HEMOGLOBIN 26.9 pg (28-32); MEAN CORPUSCULAR HGB CONC 30.9 g/dL (31-35); MEAN CORPUSCULAR VOLUME 87.1 fL (81-99); MONOCYTES # (AUTO) 0.5 (0.2-0.8); MONOCYTES % 6.5 % (4.4-11.3); NEUTROPHILS # (AUTO) 4.2 (2.1-6.9); NEUTROPHILS % 56.9 % (38.7-80.0); PLATELET COUNT 330 x10e3/uL (140-360); RED BLOOD COUNT 3.94 x10e6/uL (4.3-5.7); RED CELL DISTRIBUTION WIDTH 13.3 % (11.7-14.4)
[2018-08-13 08:22] LABS: ANION GAP 13.1 mmol/L (8-16); BLOOD UREA NITROGEN 8 mg/dL (7-26); BUN/CREATININE RATIO 11 (6-25); CALCIUM 8.5 mg/dL (8.4-10.2); CARBON DIOXIDE 28 mmol/L (22-29); CHLORIDE 100 mmol/L (98-107); EST GLOMERULAR FILTRATION RATE > 60 ML/MIN (60-); GLUCOSE 209 mg/dL (74-118); POTASSIUM 4.1 mmol/L (3.5-5.1); SODIUM 137 mmol/L (136-145)
[2018-08-13] MEDS: CYCLOBENZAPRINE HCL 10 MG TAB PO SCH ×3 (08:28→20:50)
[2018-08-13] MEDS: ESCITALOPRAM OXALATE 10 MG TAB PO SCH (08:28)
[2018-08-13] MEDS: LISINOPRIL 10 MG TAB PO SCH (08:29)
[2018-08-13] MEDS: METOPROLOL TARTRATE 50 MG TAB PO SCH ×2 (08:29→17:07)
[2018-08-13] MEDS: FAMOTIDINE 20 MG TAB PO SCH ×2 (08:29→17:05)
[2018-08-13] MEDS: GABAPENTIN 300 MG CAP PO SCH ×3 (08:29→20:50)
[2018-08-13] MEDS: INSULIN REGULAR, HUMAN 100 UNIT/1 ML 3ML VIAL SQ SCH ×4 (08:30→20:52)
[2018-08-13] MEDS ORDERED: INSULIN DETEMIR 100 UNIT/ML PEN SQ SCH (09:00)
[2018-08-13] MEDS: COLLAGENASE OINTMENT 30 GM TUBE TP SCH (09:24)
[2018-08-13] MEDS: VANCOMYCIN 1GM/NS 250 ML 250 ML IV SCH ×2 (09:24→20:49)
--- NOTE | 2018-08-13 09:24 | NUR ---
dressing change to the right foot complete. pt tolerated well. will continue to monitor
[2018-08-13] MEDS: ENOXAPARIN SOD INJ 40 MG/0.4 ML SYR SC SCH (17:07)
--- NOTE | 2018-08-13 19:05 | NUR ---
RECEIVED PT IN BED WATCHING TV. NO RESP DISTRESS. NOTED DRESSING INTACT, DRY, NO DRAINAGE. CALL LIGHT WITHIN REACH AND INSTRUCTED TO CALL FOR ASSISTANCE. PT VERBALIZED UNDERSTANDING.
[2018-08-13] MEDS: ATORVASTATIN 40 MG TAB PO SCH (20:50)
[2018-08-13] MEDS: NIFEDIPINE CR 30 MG TAB PO SCH (20:50)
[2018-08-14] VITALS (8 sets, daily range): BP systolic 108–173; BP diastolic 59–82
--- NOTE | 2018-08-14 00:01 | NUR ---
DRESSING TO R FOOT COMPLETED. PATIENT TOLERATED WELL.
[2018-08-14] MEDS: AZTREONAM 1 GM/NS 50 ML 50 ML IV SCH ×3 (05:07→21:52)
[2018-08-14] MEDS: MORPHINE SULFATE INJ 4 MG/ML INJ IV PRN ×4 (05:19→21:52)
--- NOTE | 2018-08-14 07:25 | NUR ---
PATIENT SITTING AT BED SIDE TALKING ON THE PHONE, NO RESPIRATORY DISTRESS OBSERVED. DRESSING INTACT TO RIGHT FOOT. BED IN LOWER POSITION, CALL LIGHT AT REACH.
[2018-08-14] MEDS: INSULIN REGULAR, HUMAN 100 UNIT/1 ML 3ML VIAL SQ SCH ×4 (07:30→21:00)
[2018-08-14] MEDS: FAMOTIDINE 20 MG TAB PO SCH ×2 (08:04→16:49)
[2018-08-14] MEDS ORDERED: INSULIN DETEMIR 100 UNIT/ML PEN SQ SCH (09:00)
[2018-08-14] MEDS: METOPROLOL TARTRATE 50 MG TAB PO SCH ×2 (09:20→17:00)
[2018-08-14] MEDS: LISINOPRIL 10 MG TAB PO SCH (09:20)
[2018-08-14] MEDS: CYCLOBENZAPRINE HCL 10 MG TAB PO SCH ×3 (09:20→21:51)
[2018-08-14] MEDS: ESCITALOPRAM OXALATE 10 MG TAB PO SCH (09:20)
[2018-08-14] MEDS: GABAPENTIN 300 MG CAP PO SCH ×3 (09:20→21:51)
[2018-08-14] MEDS: COLLAGENASE OINTMENT 30 GM TUBE TP SCH (11:20)
--- NOTE | 2018-08-14 11:37 | NUR ---
PATIENT SITTING AT BED SIDE EATING LUNCH. C/O PAIN TO RIGHT FOOT, PAIN MEDICATION ADMINISTERED ORDERED. BED IN LOWER POSITION, CALL LIGHT AT REACH.
--- NOTE | 2018-08-14 16:15 | NUR ---
PATIENT IN BED WATCHING TV, NO COMPLAIN VOICED. DRESSING CHANGED TO RIGHT FOOT ORDERED. URINAL EMPTIED AND CLEANSED. BED IN LOWER POSITION, CALL LIGHT AT REACH.
[2018-08-14] MEDS: ENOXAPARIN SOD INJ 40 MG/0.4 ML SYR SC SCH (17:40)
--- NOTE | 2018-08-14 19:11 | NUR ---
BED SIDE REPORT GIVEN TO ON COMING NURSE. PATIENT RESTING IN BED WITH NO S/S OF DISCOMFORT.
[2018-08-14] MEDS: ATORVASTATIN 40 MG TAB PO SCH (21:51)
[2018-08-14] MEDS: NIFEDIPINE CR 30 MG TAB PO SCH (21:51)
[2018-08-15] VITALS (8 sets, daily range): BP systolic 102–148; BP diastolic 54–67
[2018-08-15] MEDS: MORPHINE SULFATE INJ 4 MG/ML INJ IV PRN ×4 (02:50→22:09)
[2018-08-15] MEDS: AZTREONAM 1 GM/NS 50 ML 50 ML IV SCH ×3 (05:06→21:48)
--- NOTE | 2018-08-15 07:26 | NUR ---
IM- progress note o/N; no events REVIEW OF SYSTEMS: Denies any fevers, chills, sweats, nausea, vomiting, diarrhea, headache, back pain, chest pain or vision change. PHYSICAL EXAM VITAL SIGNS: Reviewed. GENERAL: A tired-appearing man resting in bed. HEENT: Anicteric. CARDIOVASCULAR: Normal S1 and S2. LUNGS: He has moderate breath sounds. ABDOMEN: Soft, nontender, and nondistended. EXTREMITIES: He has bilateral lower extremity edema. He has left foot 4th and 5th digits absent with well-healed scar. He has a right foot heel with gangrenous changes. He has right foot 5th digit with gangrenous changes. SKIN: Dry. PSYCHIATRIC: Flat affect. NEUROLOGICAL: Alert, oriented x3. Moving all extremities. LABS: Reviewed. MEDICATIONS: Reviewed. ASSESSMENT AND PLAN: This is a 52-year-old man 1. Right heel gangrenous changes/right foot 5th digit gangrenous changes/diabetic foot ulcer. 2. Diabetes mellitus type 2. 3. Severe obesity, body mass index 40.6. 4. Malignant hypertension, blood pressure is as high as 208/109. 5. Lactic acidemia. 6. Coronary artery disease with history of stents. 7. Congestive heart failure, likely diastolic. 8. Hypertension. 9. Hyperlipidemia. PLAN 1. Continue IV vancomycin. 2. IV aztreonam. 3. Wound cultures and blood cultures. 4. Obtain hemoglobin A1c and lipid panel. 5. Podiatry consultation. 6. Diabetic diet. 7. Continue antihypertensive medications. 8. Continue anticholesterol medications. 9. Utilize Lovenox and Pepcid for prophylaxis. 10. Disposition: Podiatry consultation. Cultures on followup. 08/10 Hba1c 14.3, LD 55. f/u cx; cont iv abx; f/u podiatry 08/11 ESR 48; GNR in wound; cont abx; 08/12 Vanco trough 9, titrate insulin up; Proteus mirabilis and Enterococcus infections in wound; debridement pending today. 08/13 Proteus/Enterococcus/E.coli infected wound; cont abx; check labs; 08/14 cont abx; cont LWC; titrate insulin up 08/15 cont abx; titrate insulin to 22. cont LWC; d/c planning; possible d/c tomorrow; Law Vale MD, PhD.
[2018-08-15] MEDS: INSULIN REGULAR, HUMAN 100 UNIT/1 ML 3ML VIAL SQ SCH ×4 (07:30→21:35)
[2018-08-15] MEDS: COLLAGENASE OINTMENT 30 GM TUBE TP SCH (09:00)
[2018-08-15] MEDS: FAMOTIDINE 20 MG TAB PO SCH ×2 (09:31→16:12)
[2018-08-15] MEDS: METOPROLOL TARTRATE 50 MG TAB PO SCH ×2 (09:32→17:13)
[2018-08-15] MEDS: CYCLOBENZAPRINE HCL 10 MG TAB PO SCH ×3 (09:32→21:47)
[2018-08-15] MEDS: GABAPENTIN 300 MG CAP PO SCH ×3 (09:32→21:47)
[2018-08-15] MEDS: LISINOPRIL 10 MG TAB PO SCH (09:33)
[2018-08-15] MEDS: INSULIN DETEMIR 100 UNIT/ML PEN SQ SCH (09:41)
[2018-08-15] MEDS: ESCITALOPRAM OXALATE 10 MG TAB PO SCH (09:41)
--- NOTE | 2018-08-15 11:48 | Progress Note ---
DATE: August 15, 2018 SUBJECTIVE: The patient has no new complaints. The mid lesion to the right heel has been improving with local wound care. OBJECTIVE: There is indeed what appears to be granulated tissue at this point to the ulcer debridement site significantly improved. Erythema and edema to the foot has decreased significantly as well. ASSESSMENT: 1. Diabetic ulceration. 2. Diabetic peripheral neuropathy. 3. Uncontrolled diabetes. PLAN: Proceed at this point with local wound care. At this point, discharge planning is also indicated. Local wound care will consist of Santyl wet-to-dry off loading as well. Will be seen back on an outpatient basis at this point. Podiatry signing off. Job#: [id number]
--- NOTE | 2018-08-15 12:00 | NUR ---
Spoke with Dr. Ernandez regarding discharge plan. He gave order to set up home health for wound care. Adele wet-to-dry dressing.
--- NOTE | 2018-08-15 12:56 | NUR ---
Spoke with pt regarding home health. Pt stated he previously used [facility] and would like to use them again. Choice letter signed for [facility] and filed in chart. Copy to pt. IMM letter delivered and explained to pt. He verbalized understanding. Signed copy in chart. Copy to pt.
--- NOTE | 2018-08-15 14:34 | NUR ---
Home health order and clinicals faxed to [facility] at [phone] / P [phone]
[2018-08-15] MEDS: ENOXAPARIN SOD INJ 40 MG/0.4 ML SYR SC SCH (16:12)
--- NOTE | 2018-08-15 19:30 | NUR ---
PATIENT RECEIVED. PATIENT RESTING IN BED, AAX3. RESP EVEN AND UNLABORED. NO ACUTE DISTRESS NOTED AT THIS TIME. RIGHT FOOT DRESSING NOTED. DRY AND INTACT. CALL LIGHT WITHIN REACH. INSTRUCT TO CALL FOR ASSISTANCE. BED LOW/LOCKED. CONTINUE TO MONITOR CLOSELY
[2018-08-15] MEDS: NIFEDIPINE CR 30 MG TAB PO SCH (21:47)
[2018-08-15] MEDS: ATORVASTATIN 40 MG TAB PO SCH (21:47)
[2018-08-15] MEDS ORDERED: SODIUM CHLORIDE 0.9% 250ML 250 ML ONE (21:53)
[2018-08-16] VITALS: BP 114/64
[2018-08-16 00:21] VITALS: BP 114/60
[2018-08-16] MEDS: AZTREONAM 1 GM/NS 50 ML 50 ML IV SCH (04:57)
[2018-08-16] MEDS: MORPHINE SULFATE INJ 4 MG/ML INJ IV PRN (04:58)
[2018-08-16 06:21] VITALS: BP 115/61
[2018-08-16] MEDS ORDERED: Collagenase TP (07:09)
[2018-08-16] MEDS ORDERED: CIPRO500 MG PO (07:09)
[2018-08-16] MEDS ORDERED: NIFEDIPINE ER30 M1 PO (07:09)
[2018-08-16] MEDS ORDERED: MINOCYCLINE HC100 MG PO (07:09)
[2018-08-16] MEDS ORDERED: Insulin Detemir SQ (07:09)
--- NOTE | 2018-08-16 07:14 | NUR ---
Discharge Summary Principal Dx: ASSESSMENT AND PLAN: This is a 52-year-old man 1. Right heel gangrenous changes/right foot 5th digit gangrenous changes/diabetic foot ulcer. 2. Diabetes mellitus type 2. 3. Severe obesity, body mass index 40.6. 4. Malignant hypertension, blood pressure is as high as 208/109. 5. Lactic acidemia. 6. Coronary artery disease with history of stents. 7. Congestive heart failure, likely diastolic. 8. Hypertension. 9. Hyperlipidemia. Secondary Dx: 1.HTN cc and HPI; refer to &P Hospital course; ASSESSMENT AND PLAN: This is a 52-year-old man 1. Right heel gangrenous changes/right foot 5th digit gangrenous changes/diabetic foot ulcer. 2. Diabetes mellitus type 2. 3. Severe obesity, body mass index 40.6. 4. Malignant hypertension, blood pressure is as high as 208/109. 5. Lactic acidemia. 6. Coronary artery disease with history of stents. 7. Congestive heart failure, likely diastolic. 8. Hypertension. 9. Hyperlipidemia. PLAN 1. Continue IV vancomycin. 2. IV aztreonam. 3. Wound cultures and blood cultures. 4. Obtain hemoglobin A1c and lipid panel. 5. Podiatry consultation. 6. Diabetic diet. 7. Continue antihypertensive medications. 8. Continue anticholesterol medications. 9. Utilize Lovenox and Pepcid for prophylaxis. 10. Disposition: Podiatry consultation. Cultures on followup. 08/10 Hba1c 14.3, LD 55. f/u cx; cont iv abx; f/u podiatry 08/11 ESR 48; GNR in wound; cont abx; 08/12 Vanco trough 9, titrate insulin up; Proteus mirabilis and Enterococcus infections in wound; debridement pending today. 08/13 Proteus/Enterococcus/E.coli infected wound; cont abx; check labs; 08/14 cont abx; cont LWC; titrate insulin up 08/15 cont abx; titrate insulin to 22. cont LWC; d/c planning; possible d/c tomorrow; 08/16 HH and wound care at home; f/u with . d/c time>35mins d/c location Home with d/c meds; see MAR d/c condition: stable f/u PCP 1 week and 1 week Law Vale MD, PhD.
[2018-08-16] MEDS: INSULIN REGULAR, HUMAN 100 UNIT/1 ML 3ML VIAL SQ SCH (07:30)
[2018-08-16] MEDS: FAMOTIDINE 20 MG TAB PO SCH (07:30)
[2018-08-16] MEDS: GABAPENTIN 300 MG CAP PO SCH (08:18)
[2018-08-16] MEDS: CYCLOBENZAPRINE HCL 10 MG TAB PO SCH (08:18)
[2018-08-16] MEDS: ESCITALOPRAM OXALATE 10 MG TAB PO SCH (08:18)
[2018-08-16] MEDS: LISINOPRIL 10 MG TAB PO SCH (08:19)
[2018-08-16] MEDS: METOPROLOL TARTRATE 50 MG TAB PO SCH (08:19)
[2018-08-16 08:22] VITALS: BP 134/65
[2018-08-16] MEDS: INSULIN DETEMIR 100 UNIT/ML PEN SQ SCH (09:26)
[2018-08-16] MEDS: COLLAGENASE OINTMENT 30 GM TUBE TP SCH (09:27)
--- NOTE | 2018-08-16 09:27 | NUR ---
Patient alert and responsive, VSS, tolerated all meds and wound dressing to right foot changed, no drainage, slough around heel wound and santyl applied, tolerated well, will monitor.
--- NOTE | 2018-08-16 09:41 | NUR ---
ROBLES spoke with hospice coordinator Jennie at [facility]. Informed her that pt is discharging today. She will schedule him to be seen tomorrow. [facility] [id number] [place] [address] [facility] information printed and given to pt. Addendum: 08/16/18 at 1044 by Harriett Michael CM Pt stated he will call and make an appointment with Dr. Ernandez to follow up outpatient. His PCP is in the process of ordering a new wheelchair for him as well and pt will follow up with PCP. He has a wheelchair currently at home.
--- NOTE | 2018-08-16 11:08 | NUR ---
Patient alert and responsive, provided with discharge summary and prescriptions, contacts provided for f/u appt with Dr. Ernandez and wound care provided and supplies sent with patient, IV line removed with cath tip in place and dressing applied.
== END 2018-08-16 10:12 | disposition home health service (06) | DRG 264 ==
LOC: ER 11:53 → ERHOLD 19:29 → IMCU 22:19 → OBSVTOIN 08-10 07:55 → MED/SURG2 08-10 22:12
PROVIDERS: ADMIT Internal Medicine; ATTEND Internal Medicine
PROC: 0JBQ0ZZ Excision of Right Foot Subcutaneous Tissue and Fascia, Open Approach (ICD-10-PCS; principal; 2018-08-12)
PROC: 3E02340 Introduction of Influenza Vaccine into Muscle, Percutaneous Approach (ICD-10-PCS; 2018-08-13)
DX: E11.52 Type 2 diabetes mellitus with diabetic peripheral angiopathy with gangrene (principal); I96 Gangrene, not elsewhere classified; L03.115 Cellulitis of right lower limb; Z68.41 Body mass index [BMI] 40.0-44.9, adult; E87.2 Acidosis; I50.32 Chronic diastolic (congestive) heart failure; E11.621 Type 2 diabetes mellitus with foot ulcer; E11.65 Type 2 diabetes mellitus with hyperglycemia; E66.01 Morbid (severe) obesity due to excess calories; I11.0 Hypertensive heart disease with heart failure; E78.5 Hyperlipidemia, unspecified; I25.2 Old myocardial infarction; I25.10 Atherosclerotic heart disease of native coronary artery without angina pectoris; Z95.5 Presence of coronary angioplasty implant and graft; Z95.1 Presence of aortocoronary bypass graft; Z23 Encounter for immunization; B96.20 Unspecified Escherichia coli [E. coli] as the cause of diseases classified elsewhere; B95.2 Enterococcus as the cause of diseases classified elsewhere; B96.4 Proteus (mirabilis) (morganii) as the cause of diseases classified elsewhere
CPT/HCPCS: 36415; 80048; 80053; 80061; 80202; 82948; 83036; 83605; 83735; 85025; 85610; 85651; 85730; 87040; 87071; 87186; 87205; 99284; G0378; J1650; J2270; J3370; J7030; J7050

== ENCOUNTER 2018-11-14 16:13 | Inpatient (IN) | payer MEDICARE ==
[~2018-11-14] VITALS: Ht 177.8 cm; Wt 145.6 kg
[~2018-11-14 16:13] MED LIST changes: +CIPRO500 MG PO; +Collagenase TP; +GABAPENTIN600 MG; +Insulin Detemir SQ; +MINOCYCLINE HC100 MG PO; +NIFEDIPINE ER30 M1 PO
--- OUTSIDE RECORDS SUMMARY | 2018-11-14 16:16 | XMS REPORT | Clinical Summary ---
Author Author [facility] Organization [place] [facility] Address Unknown Phone Unavailable Care Team Providers Care Diplomatic Interpreter/Translator Name Role Phone Gurinder Capps DO PCP [...] Dx); Sepsis, due to unspecified organism 03/22/2018 [facility] General Internal Medicine - Encounter 03/26/2018 after 11/13/2017 Family History Medical History Relation Name Comments [...] Last Done Comments COLON CANCER SCREENING 2014 SHINGLES VACCINES (#1) 2014 INFLUENZA VACCINE 03/30/2018 Procedures Comments Procedure Name Priority Date/Time Associated [...] MMODE SPECTRAL 11:19 AM CDT COLOR DOPPLER (25203) POC GLUCOSE Routine 03/25/2018 11:14 AM CDT [...] PRELIMINARY Routine 03/22/2018 INTERPRETATION 9:05 PM CDT [place] CRITICAL CARE, E/M Routine 03/22/2018 30-74 MINUTES 9:05 PM CDT ECG 12-LEAD STAT 03/22/2018 7:52 PM CDT ZZESTIMATED GFR STAT 03/22/2018 7:39 PM CDT BETA HYDROXYBUTYRATE STAT 03/22/2018 7:39 PM CDT COMPREHENSIVE METABOLIC STAT 03/22/2018 PANEL 7:39 PM CDT HC COMPLETE BLD COUNT STAT 03/22/2018 W/AUTO DIFF 7:39 PM CDT POC GLUCOSE Routine 03/22/2018 7:23 PM CDT after 11/13/2017 Results * POC glucose (03/26/2018 4:39 PM CDT) Only the most recent of 16 results within the time period is included. POC glucose 139 (H) 65 - 100 mg/dL [facility] DEPARTMENT OF Comment: PATHOLOGY AND Meter ID: [id number] [place] [facility] Processing Specialist: Thania Sims Performing Organization Address City/State/Zipcode Phone Number [facility] DEPARTMENT OF [address] [place] [address] PATHOLOGY AND GENOMIC MEDICINE * Estimated GFR (03/26/2018 11:51 AM CDT) Only the most recent of 2 results within the time period is included. GFR Non Af Amer >90 mL/min/1.73 m2 [facility] DEPARTMENT OF PATHOLOGY AND GENOMIC MEDICINE GFR Af Amer >90 mL/min/1.73 m2 [facility] DEPARTMENT OF Comment: PATHOLOGY AND Chronic kidney [...] Americans. Specimen Plasma specimen Performing Organization Address City/[facility] Phone Number [address] [place] [phone] PATHOLOGY AND [place] [facility] * Basic metabolic panel (03/26/2018 11:51 AM CDT) Sodium 140 135 - 150 mEq/L [facility] DEPARTMENT OF PATHOLOGY AND [place] [facility] Potassium 3.8 3.5 - 5.0 mEq/L [facility] DEPARTMENT OF PATHOLOGY AND [place] [facility] Chloride 100 98 - 112 mEq/L [facility] DEPARTMENT OF PATHOLOGY AND [place] [facility] CO2 31 24 - 31 mmol/L [facility] DEPARTMENT OF PATHOLOGY AND [place] [facility] Anion gap 9@ANIO 7 - 15 mEq/L [facility] DEPARTMENT OF PATHOLOGY AND [place] [facility] BUN 9 7 - 18 mg/dL [facility] DEPARTMENT OF PATHOLOGY AND [place] [facility] Creatinine 0.60 (L) 0.70 - 1.20 mg/dL [facility] DEPARTMENT OF PATHOLOGY AND [place] [facility] Glucose 214 (H) 65 - 100 mg/dL [facility] DEPARTMENT OF PATHOLOGY AND [place] [facility] Calcium 8.6 8.3 - 10.2 mg/dL [facility] DEPARTMENT OF PATHOLOGY AND [place] [facility] Specimen Plasma specimen Performing Organization Address [facility] Phone Number [address] [place] [phone] PATHOLOGY AND [place] [facility] * Vancomycin level, trough (03/25/2018 12:12 PM CDT) Vancomycin, trough 15.3 10.0 - 20.0 ug/mL [facility] DEPARTMENT OF Comment: PATHOLOGY AND Therapeutic Ranges: GENOMIC MEDICINE Peak30.0 - 40.0 ug/mL Pyqzwz47.0 - 20.0 ug/mL Specimen Blood Performing Organization Address City/[facility] Phone Number [address] [place] [phone] PATHOLOGY AND GENOMIC MEDICINE * Echocardiogram complete [...] left ventricular diastolic filling. Performing Organization Address [facility]/Zipcode Phone Number [facility] [address] [place] [address] * Blood culture, aerobic & anaerobic (03/22/2018 11:05 PM CDT) Only the most recent of 2 results within the time period is included. Blood culture isolate No growth after 5 days of [facility] DEPARTMENT OF incubation. PATHOLOGY AND Comment: GENOMIC MEDICINE Specimen Information Specimen Source: Blood Specimen Site: R FOREARM Specimen Blood Performing Organization Address City/[facility]/Zipcode Phone Number [facility] DEPARTMENT OF [address] [place] [address] PATHOLOGY AND GENOMIC MEDICINE * Lactic acid level, SEPSIS - Now and repeat 2x every 3 hours (03/22/2018 11:00 PM CDT) Lactic acid 1.7 0.5 - 2.2 mmol/L [facility] DEPARTMENT OF PATHOLOGY AND GENOMIC MEDICINE Specimen Blood Performing Organization Address City/[facility]/Zipcode Phone Number [facility] DEPARTMENT OF [address] [place] [address] PATHOLOGY AND GENOMIC MEDICINE * XR Foot 3+ Vw Right (03/22/2018 9:35 PM CDT) Narrative Performed At EXAMINATION:XR FOOT 3VW RIGHT [facility] CLINICAL HISTORY:heel ulcer COMPARISON:None. IMPRESSION: No evidence of acute right foot fracture or dislocation. No radiographic evidence of osteomyelitis. Mild foot soft tissue swelling. [facility]-[id number] Procedure Note Hm Interface, Radiology Results Incoming - 03/22/2018 9:41 PM CDT EXAMINATION: XR FOOT 3 VW RIGHT CLINICAL HISTORY: heel ulcer COMPARISON: None. IMPRESSION: No evidence of acute right foot fracture or dislocation. No radiographic evidence of osteomyelitis. Mild foot soft tissue swelling. [facility]-[id number] Performing Organization Address City/State/Zipcode Phone Number [facility] [address] [place] [address] * ECG ED Preliminary Interpretation - NOT AN ORDER (03/22/2018 9:05 PM CDT) Narrative Performed At Teddy Cruz MD 03/23/20186:03 PM ECG ED Preliminary Interpretation - Not an Order Performed by: TEDDY CRUZ Authorized by: TEDDY CRUZ ECG reviewed by ED Physician in the absence of a etl informatica developer: yes Interpretation: Interpretation: abnormal Rate: ECG rate:100 [...] [facility] Atrial rate 100 [facility] [place] interval 164 [facility] QRSD interval 86 [facility] QT interval 346 [facility] QTC interval 446 [facility] P axis 1 69 [facility] QRS axis 1 145 [facility] T wave axis 72 [facility] EKG impression Sinus rhythm with fusion [facility] MUSE complexes-Baseline artifact-Low voltage QRS-Left posterior fascicular block-Cannot rule out Inferior infarct , age undetermined-Cannot rule out Anterior infarct , age undetermined-Abnormal ECG-In automated comparison with ECG of 12-FEB-2017 22:12,-fusion complexes are now present-aberrant conduction is no longer present-KS interval has decreased-Left posterior fascicular block is now present- Performing Organization Address City/[facility]/Zipcode Phone Number [facility] [address] [place] [address] * Beta hydroxybutyrate (03/22/2018 7:39 PM CDT) Beta hydroxybutyrate 1.58 (H) 0.02 - 0.27 mmol/L [facility] DEPARTMENT OF PATHOLOGY AND GENOMIC MEDICINE Specimen Blood Performing Organization Address City/State/Zipcode Phone Number [place] [address] [place] [address] PATHOLOGY AND GENOMIC MEDICINE * CBC with platelet and differential (03/22/2018 7:39 PM CDT) WBC 10.9 4.2 - 11.0 k/uL [facility] DEPARTMENT OF PATHOLOGY AND GENOMIC MEDICINE RBC 4.82 4.04 - 5.86 m/uL [facility] DEPARTMENT OF PATHOLOGY AND GENOMIC MEDICINE HGB 12.9 (L) 13.0 - 17.3 g/dL [facility] DEPARTMENT OF PATHOLOGY AND GENOMIC MEDICINE HCT 41.3 34.0 - 45.0 % [facility] DEPARTMENT OF PATHOLOGY AND GENOMIC MEDICINE MCV 85.7 80.0 - 98.0 fL [facility] DEPARTMENT OF PATHOLOGY AND GENOMIC MEDICINE MCH 26.8 (L) 27.0 - 34.0 pg [facility] DEPARTMENT OF PATHOLOGY AND GENOMIC MEDICINE MCHC 31.2 (L) 31.5 - 36.5 g/dL [facility] DEPARTMENT OF PATHOLOGY AND GENOMIC MEDICINE RDW - SD 41.4 37.0 - 51.0 fL [facility] DEPARTMENT OF PATHOLOGY AND GENOMIC MEDICINE MPV 10.2 7.4 - 10.4 fL [facility] DEPARTMENT OF PATHOLOGY AND GENOMIC MEDICINE Platelet count 330 150 - 400 k/uL [facility] DEPARTMENT OF PATHOLOGY AND GENOMIC MEDICINE Nucleated RBC 0.00 /100 WBC [facility] DEPARTMENT OF PATHOLOGY AND GENOMIC MEDICINE Neutrophils 69.8 (H) 36.0 - 66.0 % [facility] DEPARTMENT OF PATHOLOGY AND GENOMIC MEDICINE Lymphocytes 20.4 (L) 24.0 - 44.0 % [facility] DEPARTMENT OF PATHOLOGY AND GENOMIC MEDICINE Monocytes 8.2 (H) 0.0 - 6.0 % [facility] DEPARTMENT OF PATHOLOGY AND GENOMIC MEDICINE Eosinophils 0.6 0.0 - 6.0 % [facility] DEPARTMENT OF PATHOLOGY AND GENOMIC MEDICINE Basophils 0.4 0.0 - 1.2 % [facility] DEPARTMENT OF PATHOLOGY AND GENOMIC MEDICINE Immature granulocytes 0.6 0.0 - 1.0 % [facility] DEPARTMENT OF PATHOLOGY AND GENOMIC MEDICINE Specimen Blood Performing Organization Address City/State/Zipcode Phone Number [facility] [address] [place] [address] PATHOLOGY AND GENOMIC MEDICINE * Comprehensive metabolic panel (03/22/2018 7:39 PM CDT) Sodium 136 135 - 150 mEq/L [facility] DEPARTMENT OF PATHOLOGY AND GENOMIC MEDICINE Potassium 4.2 3.5 - 5.0 mEq/L [facility] DEPARTMENT OF PATHOLOGY AND GENOMIC MEDICINE Chloride 94 (L) 98 - 112 mEq/L [facility] DEPARTMENT OF PATHOLOGY AND GENOMIC MEDICINE CO2 24 24 - 31 mmol/L [facility] DEPARTMENT OF PATHOLOGY AND GENOMIC MEDICINE Anion gap 18@ANIO (H) 7 - 15 mEq/L [facility] DEPARTMENT OF PATHOLOGY AND GENOMIC MEDICINE BUN 10 7 - 18 mg/dL [facility] DEPARTMENT OF PATHOLOGY AND GENOMIC MEDICINE Creatinine 0.60 (L) 0.70 - 1.20 mg/dL [facility] DEPARTMENT OF PATHOLOGY AND GENOMIC MEDICINE Glucose 275 (H) 65 - 100 mg/dL [facility] DEPARTMENT OF PATHOLOGY AND GENOMIC MEDICINE Calcium 9.4 8.3 - 10.2 mg/dL [facility] DEPARTMENT OF PATHOLOGY AND GENOMIC MEDICINE Protein 7.9 6.3 - 8.3 g/dL [facility] DEPARTMENT OF PATHOLOGY AND GENOMIC MEDICINE Albumin 3.5 3.5 - 5.0 g/dL [facility] DEPARTMENT OF PATHOLOGY AND GENOMIC MEDICINE A/G ratio 0.8 0.7 - 3.8 [facility] DEPARTMENT OF PATHOLOGY AND GENOMIC MEDICINE Alkaline phosphatase 63 0 - 129 U/L [facility] DEPARTMENT OF PATHOLOGY AND GENOMIC MEDICINE AST 17 10 - 50 U/L [facility] DEPARTMENT OF PATHOLOGY AND GENOMIC MEDICINE ALT 16 5 - 50 U/L [facility] DEPARTMENT OF PATHOLOGY AND GENOMIC MEDICINE Total bilirubin 0.4 0.2 - 1.2 mg/dL [facility] DEPARTMENT OF PATHOLOGY AND GENOMIC MEDICINE Specimen Plasma specimen Performing Organization Address City/State/[facility] Mex[facility]ode Phone Number [facility] DEPARTMENT [place] [address] [place] [address] PATHOLOGY AND GENOMIC MEDICINE after 11/13/2017 Insurance Payer Benefit Subscriber ID Type Phone Address Plan / Group [employer] C[employer] xxxxxxxxxxx [employer] MCR ADV Advance Directives Patient has advance care planning documents on file. For more information, jaida fisher contact: Farooq Martin [address] [place] [address]
[2018-11-14 16:58] LABS: BASOPHILS % 0.4 % (0.0-1.0); EOSINOPHILS # (AUTO) 0.1 (0.0-0.4); EOSINOPHILS % 0.7 % (0.0-6.0); HEMATOCRIT 38.7 % (38.2-49.6); LYMPHOCYTES # (AUTO) 1.8 (1.0-3.2); LYMPHOCYTES % 18.4 % (18.0-39.1); MEAN CORPUSCULAR HEMOGLOBIN 25.4 pg (28-32); MEAN CORPUSCULAR VOLUME 81.8 fL (81-99); MONOCYTES # (AUTO) 0.5 (0.2-0.8); NEUTROPHILS # (AUTO) 7.5 (2.1-6.9); NEUTROPHILS % 75.3 % (38.7-80.0); PLATELET COUNT 396 x10e3/uL (140-360); RED BLOOD COUNT 4.73 x10e6/uL (4.3-5.7); RED CELL DISTRIBUTION WIDTH 14.1 % (11.7-14.4)
[2018-11-14] MEDS ORDERED: SODIUM CHLORIDE 0.9% 1000ML 1,000 ML IV SCH ×2 (17:00→19:00)
[2018-11-14] MEDS ORDERED: INSULIN REGULAR, HUMAN 100 UNIT/1 ML 3ML VIAL IV ONE (17:00)
[2018-11-14] MEDS ORDERED: VANCOMYCIN 1GM/NS 250 ML 250 ML IV STA (17:14)
--- NOTE | 2018-11-14 17:15 | NUR ---
X-RAY AT BEDSIDE FOR RT FOOR XR.
[2018-11-14 17:16] LABS: ALANINE AMINOTRANSFERASE 10 IU/L (0-55); ALBUMIN/GLOBULIN RATIO 0.6 (0.8-2.0); ALKALINE PHOSPHATASE 72 IU/L (40-150); ANION GAP 16.4 mmol/L (8-16); BLOOD UREA NITROGEN 9 mg/dL (7-26); BUN/CREATININE RATIO 9 (6-25); CALCIUM 8.8 mg/dL (8.4-10.2); CARBON DIOXIDE 27 mmol/L (22-29); CHLORIDE 93 mmol/L (98-107); CREATININE, SERUM 0.99 mg/dL (0.72-1.25); EST GLOMERULAR FILTRATION RATE > 60 ML/MIN (60-); POTASSIUM 4.4 mmol/L (3.5-5.1); SODIUM 132 mmol/L (136-145)
[2018-11-14 17:17] LABS: GLUCOSE 456 mg/dL (74-118)
--- NOTE | 2018-11-14 17:42 | Diagnostic Imaging Report ---
Exam: Right foot, 3 views History: Right heel defect concern for osteomyelitis Comparison: Foot radiograph dated 08/09/2018 Findings: No acute, displaced fracture or dislocation. Large defect in the soft tissues of the right heel. No definite cortical erosive or destructive change. Joint spaces are well-maintained. Mild soft tissue swelling about the forefoot. Partially visualized surgical clip in the lower leg soft tissues. Diffuse edema. Impression: Large soft tissue defect in the right heel without plain film evidence of osteomyelitis. If there is strong clinical concern, 3 phase nuclear medicine bone scan or MRI with and without contrast may be obtained for more sensitive evaluation. Signed by: Silviano Vincent MD on 11/14/2018 5:38 PM
[2018-11-14 17:46] LABS: ABG HCO3 29 mmol/L (23-28); ABG PCO2 49 mmHg (41-51); ABG PH 7.38 (7.31-7.41); ABG PO2 85 mmHg (80-105)
[2018-11-14] MEDS ORDERED: DEXTROSE 50% SYRINGE 50 ML IV PRN (19:00)
[2018-11-14] MEDS ORDERED: PIPER-TAZ 3.375 GM 50 ML IV SCH (19:00)
[2018-11-14] MEDS ORDERED: MORPHINE SULFATE 2 MG/ML SYR 1ML IV PRN (19:00)
[2018-11-14] MEDS: SODIUM CHLORIDE 0.9% 1000ML 1,000 ML IV SCH (19:06)
[2018-11-14] MEDS ORDERED: MORPHINE SULFATE INJ 4 MG/ML INJ 1ML ONE (19:44)
[2018-11-14] MEDS: ONDANSETRON HCL INJ 2MG/ML 2ML 2 MG/ML VIAL IV PRN (19:44)
[2018-11-14] MEDS ORDERED: SODIUM CHLORIDE 0.9% 1000ML 1,000 ML IV ONE (20:00)
--- OUTSIDE RECORDS SUMMARY | 2018-11-14 20:20 | XMS REPORT | Clinical Summary ---
Author Author [employer] Organization [employer] Address Unknown Phone Unavailable Care Team Providers Care Cartographic Aide Name Role Phone Gurinder Capps DO PCP [...] Dx); Sepsis, due to unspecified organism 03/22/2018 [facility] General Internal Medicine - Encounter 03/26/2018 after [...] MMODE SPECTRAL 11:19 AM CDT COLOR DOPPLER ([id number]) POC GLUCOSE Routine 03/25/2018 11:14 AM CDT [...] PRELIMINARY Routine 03/22/2018 INTERPRETATION 9:05 PM CDT [place] [facility], E/M Routine 03/22/2018 30-74 MINUTES [...] glucose 139 (H) 65 - 100 mg/dL [facility] Comment: PATHOLOGY AND Meter ID: [id number] [employer] [facility] Dining Manager: Thania Sims Performing Organization Address City/State/Zipcode Phone Number [facility] [address] [place] [address] PATHOLOGY AND GENOMIC MEDICINE * Estimated GFR (03/26/2018 11:51 AM CDT) Only the most recent of 2 results within the time period is included. GFR Non Af Amer >90 mL/min/1.73 m2 [facility] PATHOLOGY AND GENOMIC MEDICINE GFR Af Amer >90 mL/min/1.73 m2 [facility] Comment: PATHOLOGY AND Chronic kidney [...] Americans. Specimen Plasma specimen Performing Organization Address City/[facility] Phone Number [address] [place] [phone] PATHOLOGY AND [employer] [facility]ICINE * Basic metabolic panel (03/26/2018 11:51 AM CDT) Sodium 140 135 - 150 mEq/L [facility] PATHOLOGY AND [employer] [facility] Potassium 3.8 3.5 - 5.0 mEq/L [facility] PATHOLOGY AND [employer] [facility]INE Chloride 100 98 - 112 mEq/L [facility] PATHOLOGY AND [employer] [facility] CO2 31 24 - 31 mmol/L [facility] PATHOLOGY AND [employer] [facility]ICINE Anion gap 9@ANIO 7 - 15 mEq/L [facility] PATHOLOGY AND [employer] [facility] BUN 9 7 - 18 mg/dL [facility] PATHOLOGY AND [employer] [facility]INE Creatinine 0.60 (L) 0.70 - 1.20 mg/dL [facility] PATHOLOGY AND [employer] [facility] Glucose 214 (H) 65 - 100 mg/dL [facility] PATHOLOGY AND [employer] [facility]ICINE Calcium 8.6 8.3 - 10.2 mg/dL [facility] PATHOLOGY AND [employer] [facility] Specimen Plasma specimen Performing Organization Address [facility] Phone Number [address] [place] [phone] PATHOLOGY AND [employer] [facility]ICINE * Vancomycin level, trough (03/25/2018 12:12 PM CDT) Vancomycin, trough 15.3 10.0 - 20.0 ug/mL [facility] Comment: PATHOLOGY AND Therapeutic Ranges: GENOMIC MEDICINE Peak30.0 - 40.0 ug/mL Fcqeil35.0 - 20.0 ug/mL Specimen Blood Performing Organization Address City/[facility] Centercode Phone Number [address] [place] [phone] PATHOLOGY AND GENOMIC MEDICINE * Echocardiogram complete [...] left ventricular diastolic filling. Performing Organization Address [facility]/Zipcode Phone Number [facility] [address] [place] [address] * Blood culture, aerobic & anaerobic (03/22/2018 11:05 PM CDT) Only the most recent of 2 results within the time period is included. Blood culture isolate No growth after 5 days of [facility] DEPARTMENT OF incubation. PATHOLOGY AND Comment: GENOMIC MEDICINE Specimen Information Specimen Source: Blood Specimen Site: R FOREARM Specimen Blood Performing Organization Address City/[facility]/Zipcode Phone Number [facility] DEPARTMENT OF [address] [place] [address] PATHOLOGY AND GENOMIC MEDICINE * Lactic acid level, SEPSIS - Now and repeat 2x every 3 hours (03/22/2018 11:00 PM CDT) Lactic acid 1.7 0.5 - 2.2 mmol/L [facility] PATHOLOGY AND GENOMIC MEDICINE Specimen Blood Performing Organization Address City/[facility]/Zipcode Phone Number [facility] OF [address] [place] [address] PATHOLOGY AND GENOMIC MEDICINE * XR Foot 3+ Vw Right (03/22/2018 9:35 PM CDT) Narrative Performed At EXAMINATION:XR FOOT 3VW RIGHT [facility] CLINICAL HISTORY:heel ulcer COMPARISON:None. IMPRESSION: No evidence of acute right foot fracture or dislocation. No radiographic evidence of osteomyelitis. Mild foot soft tissue swelling. [facility]-[id number] Procedure Note Hm Interface, Radiology Results Incoming - 03/22/2018 9:41 PM CDT EXAMINATION: XR FOOT 3 VW RIGHT CLINICAL HISTORY: heel ulcer COMPARISON: None. IMPRESSION: No evidence of acute right foot fracture or dislocation. No radiographic evidence of osteomyelitis. Mild foot soft tissue swelling. [facility]-[id number] Performing Organization Address City/State/Zipcode Phone Number [facility] [address] [place] [address] * ECG ED Preliminary Interpretation - NOT AN ORDER (03/22/2018 9:05 PM CDT) Narrative Performed At Teddy Cruz MD 03/23/20186:03 PM ECG ED Preliminary Interpretation - Not an Order Performed by: TEDDY CRUZ Authorized by: TEDDY CRUZ ECG reviewed by ED Physician in the absence of a auto mechanic supervisor: yes Interpretation: Interpretation: abnormal Rate: ECG rate:100 [...] [facility]USE Atrial rate 100 [facility] MUSE [place] interval 164 [facility] MUSE QRSD interval 86 [facility] QT interval 346 [facility] M[facility] QTC interval 446 [facility] P axis 1 69 [facility] M[facility] QRS axis 1 145 [facility] T wave axis 72 [facility] EKG impression Sinus rhythm with fusion [facility] MUSE complexes-Baseline artifact-Low voltage QRS-Left posterior fascicular block-Cannot rule out Inferior infarct , age undetermined-Cannot rule out Anterior infarct , age undetermined-Abnormal ECG-In automated comparison with ECG of 12-FEB-2017 22:12,-fusion complexes are now present-aberrant conduction is no longer present-[place] interval has decreased-Left posterior fascicular block is now present- Performing Organization Address City/[facility]/Zipcode Phone Number [facility] [place] [place] [address] [place] [address] * Beta hydroxybutyrate (03/22/2018 7:39 PM CDT) Beta hydroxybutyrate 1.58 (H) 0.02 - 0.27 mmol/L [facility] OF PATHOLOGY AND GENOMIC MEDICINE Specimen Blood Performing Organization Address City/State/Zipcode Phone Number [place] [address] [place] [address] PATHOLOGY AND GENOMIC MEDICINE * CBC with platelet and differential (03/22/2018 7:39 PM CDT) WBC 10.9 4.2 - 11.0 k/uL [facility] PATHOLOGY AND GENOMIC MEDICINE RBC 4.82 4.04 - 5.86 m/uL [facility] OF PATHOLOGY AND GENOMIC MEDICINE HGB 12.9 (L) 13.0 - 17.3 g/dL [facility] OF PATHOLOGY AND GENOMIC MEDICINE HCT 41.3 34.0 - 45.0 % [facility] OF PATHOLOGY AND GENOMIC MEDICINE MCV 85.7 80.0 - 98.0 fL [facility] OF PATHOLOGY AND GENOMIC MEDICINE MCH 26.8 (L) 27.0 - 34.0 pg [facility] OF PATHOLOGY AND GENOMIC MEDICINE MCHC 31.2 (L) 31.5 - 36.5 g/dL [facility] OF PATHOLOGY AND GENOMIC MEDICINE RDW - SD 41.4 37.0 - 51.0 fL [facility] OF PATHOLOGY AND GENOMIC MEDICINE MPV 10.2 7.4 - 10.4 fL [facility] PATHOLOGY AND GENOMIC MEDICINE Platelet count 330 150 - 400 k/uL [facility] OF PATHOLOGY AND GENOMIC MEDICINE Nucleated RBC 0.00 /100 WBC [facility] OF PATHOLOGY AND GENOMIC MEDICINE Neutrophils 69.8 (H) 36.0 - 66.0 % [facility] OF PATHOLOGY AND GENOMIC MEDICINE Lymphocytes 20.4 (L) 24.0 - 44.0 % [facility] PATHOLOGY AND GENOMIC MEDICINE Monocytes 8.2 (H) 0.0 - 6.0 % [facility] OF PATHOLOGY AND GENOMIC MEDICINE Eosinophils 0.6 0.0 - 6.0 % [facility] OF PATHOLOGY AND GENOMIC MEDICINE Basophils 0.4 0.0 - 1.2 % [facility] OF PATHOLOGY AND GENOMIC MEDICINE Immature granulocytes 0.6 0.0 - 1.0 % [facility] OF PATHOLOGY AND GENOMIC MEDICINE Specimen Blood Performing Organization Address City/State/Zipcode Phone Number [facility] [address] [place] [address] PATHOLOGY AND GENOMIC MEDICINE * Comprehensive metabolic panel (03/22/2018 7:39 PM CDT) Sodium 136 135 - 150 mEq/L [facility] OF PATHOLOGY AND GENOMIC MEDICINE Potassium 4.2 3.5 - 5.0 mEq/L [facility] OF PATHOLOGY AND GENOMIC MEDICINE Chloride 94 (L) 98 - 112 mEq/L [facility] OF PATHOLOGY AND GENOMIC MEDICINE CO2 24 24 - 31 mmol/L [facility] OF PATHOLOGY AND GENOMIC MEDICINE Anion gap 18@ANIO (H) 7 - 15 mEq/L [facility] OF PATHOLOGY AND GENOMIC MEDICINE BUN 10 7 - 18 mg/dL [facility] OF PATHOLOGY AND GENOMIC MEDICINE Creatinine 0.60 (L) 0.70 - 1.20 mg/dL [facility] OF PATHOLOGY AND GENOMIC MEDICINE Glucose 275 (H) 65 - 100 mg/dL [facility] OF PATHOLOGY AND GENOMIC MEDICINE Calcium 9.4 8.3 - 10.2 mg/dL [facility] OF PATHOLOGY AND GENOMIC MEDICINE Protein 7.9 6.3 - 8.3 g/dL [facility] OF PATHOLOGY AND GENOMIC MEDICINE Albumin 3.5 3.5 - 5.0 g/dL [facility] DEPARTMENT OF PATHOLOGY AND GENOMIC MEDICINE A/G ratio 0.8 0.7 - 3.8 [facility] PATHOLOGY AND GENOMIC MEDICINE Alkaline phosphatase 63 0 - 129 U/L [facility] OF PATHOLOGY AND GENOMIC MEDICINE AST 17 10 - 50 U/L [facility] OF PATHOLOGY AND GENOMIC MEDICINE ALT 16 5 - 50 U/L [facility] OF PATHOLOGY AND GENOMIC MEDICINE Total bilirubin 0.4 0.2 - 1.2 mg/dL [facility] OF PATHOLOGY AND GENOMIC MEDICINE Specimen Plasma specimen Performing Organization Address City/State/[facility]ercode Phone Number [facility] [place] [address] [place] [address] PATHOLOGY AND GENOMIC MEDICINE after 11/13/2017 Insurance Payer Benefit Subscriber ID Type Phone Address Plan / Group [employer] CIGNA xxxxxxxxxxx [facility] AD[facility] Advance Directives Patient has advance care planning documents on file. For more information, jaida fisher contact: Farooq Martin [address] [place] [address]
[2018-11-14 20:42] VITALS: BP 117/73
--- NOTE | 2018-11-14 21:56 | NUR ---
Report received from CLAIRE moon. Patient admitted in unit by stretcher.Patient received alert/orientedx3. Denied pain and no SOB. No respiratory distress noted.Spo2 maintained 99% with RA. V/S WNL. at the bedside. Head to toe assessment completed. No skin breakdown noted. Diabetic black wound on right heel and left 4th and 5th digit toe amputated noted. Bed in lower position,locked. call hensley within reach. Will continue to monitor.
[2018-11-14 22:04] VITALS: BP 117/73
[2018-11-14 22:22] VITALS: BP 117/73
[2018-11-14] MEDS: INSULIN REGULAR, HUMAN 100 UNIT/1 ML 3ML VIAL SQ SCH (22:38)
[2018-11-15] VITALS (9 sets, daily range): BP systolic 102–142; BP diastolic 71–89
[2018-11-15] MEDS: MORPHINE SULFATE INJ 4 MG/ML INJ 1ML IV PRN ×3 (01:55→14:16)
[2018-11-15] MEDS: ONDANSETRON HCL INJ 2MG/ML 2ML 2 MG/ML VIAL IV PRN ×3 (01:55→14:16)
[2018-11-15] MEDS: SODIUM CHLORIDE 0.9% 1000ML 1,000 ML IV SCH (03:58)
[2018-11-15] MEDS: VANCOMYCIN 1GM/NS 250 ML 250 ML IV SCH ×2 (05:30→18:45)
--- NOTE | 2018-11-15 07:18 | NUR ---
Report given to AM nurse,walking round done.
[2018-11-15] MEDS: INSULIN REGULAR, HUMAN 100 UNIT/1 ML 3ML VIAL SQ SCH ×4 (08:28→21:41)
[2018-11-15] MEDS ORDERED: SODIUM CHLORIDE 0.9% 1000ML 1,000 ML IV SCH (11:00)
[2018-11-15 11:48] LABS: CHOL/HDL RATIO 2.8 (3.9-4.7)
--- NOTE | 2018-11-15 12:00 | NUR ---
WOUND CARE CONSULTATION: THIS IS A 52 YEAR OLD MALE PATIENT ADMITTED TO [facility] FOR A RIGHT HEEL INFECTED DIABETIC FOOT ULCER. HEAD TO TOE SKIN ASSESSMENT PERFORMED. PATIENT HAS A RIGHT HEEL GOYAL 2 DIABETIC ULCER MEASURING 3X5.3X0.4CM, 100% SLOUGH AND ESCHAR COVERING WOUND BED, WITH ERRYTHEMA NOTED TO PERIWOUND. PATIENT SAID THIS WOUND HAS BEEN OPEN FOR 4 TO 5 MONTHS. PER PATIENT, HE HAS SEEN DR. MATTHEW IN THE PAST FOR PODIATRY CARE OF HIS ULCER. PATIENT HAS NOTIFIED DR. MATTHEW AND THE PATIENT AND INTEND TO ASK DR. DEVI FOR DR. MATTHEW TO BE CONSULTED WHEN HE ROUNDS TODAY. LABS: WBC9.94 [id number] WOUND CULTURE = PENDING XRAY OF RIGHT FOOT = NEGATIVE FOR OSTEOMYELITIS MEDICATIONS: VANCOMYCIN ZOSYN RECOMMENDATION: -CONTINUE ALTERNATING PRESSURE RELIEF MATTRESS. -APPLY BILATERAL HEEL PROTECTORS WITH PILLOW SUSPENSION. -NURSING TO CLEAN RIGHT HEEL WOUND WITH NORMAL SALINE, PAT DRY, APPLY SANTYL/BACTROBAN MIXED 50/50 TO RIGHT HEEL GOYAL 2 DIABETIC ULCER, COVER WITH NS MOISTENED GAUZE, KERLIX; CHANGE DRESSING DAILY AND PRN. THANK YOU FOR THIS WOUND CARE CONSULT. Addendum: 11/15/18 at 1210 by Mary Wong RN Amended: Links added.
[2018-11-15] MEDS ORDERED: COLLAGENASE 5 GM TUBE TOP PRN (13:00)
[2018-11-15] MEDS ORDERED: MUPIROCIN 2% OINT 22 GM TUBE TOP PRN (13:00)
--- NOTE | 2018-11-15 14:55 | NUR ---
Visit made by the Spiritual Care Department Pastoral Visitor, Gayle Goode. PV provided pastoral presence, prayer, hospitality, and supportive listening. Pastoral Visitor informed pt/family of the scope of Risk Assessment Consultant Services and availability. JANAK ROBBINS [employer] Spiritual Care Department O: [phone] Pager: [phone] ([phone] number calling from)
--- NOTE | 2018-11-15 15:24 | NUR ---
PRIMARY CARE PHYSICIANS 1. Dr. Gurinder Capps. 2. Needle Molder, Dr. José Luis Ernandez. CHIEF COMPLAINT: Foot infection. HISTORY OF PRESENT ILLNESS: This is a 52-year-old male, managed in past for foot infection, saw PCP 2 months ago, getting Home health, but ended few weeks ago, now worsening heel, came to hospital. Has necrotic heel; admitted for mgmt; PAST MEDICAL HISTORY: Diabetes mellitus type 2; diabetic foot ulcer, status post left foot 4th and 5th digit amputations; myocardial infarction, status post stent in 2002. Patient is status post coronary artery bypass grafting in 2013, congestive heart failure, carotid artery stenosis as well as carotid endarterectomy, Right heel gangrenous changes/right foot 5th digit gangrenous changes/diabetic foot ulcer, Diabetes mellitus type 2, Severe obesity, body mass index 40.6, Malignant hypertension PAST SURGICAL HISTORY: Coronary artery bypass grafting 2013, coronary artery stents in 2002, left foot 4th and 5th digit amputations, and carotid endarterectomy. ALLERGIES: PER ELECTRONIC MEDICAL RECORD. FAMILY/SOCIAL HISTORY: Patient is . No alcohol or cigarettes. MEDICATIONS: Per electronic medical record. REVIEW OF SYSTEMS: Denies any fevers, chills, sweats, nausea, vomiting, diarrhea, headache, back pain, chest pain or vision change. PHYSICAL EXAM VITAL SIGNS: Reviewed. GENERAL: A tired-appearing man resting in bed. HEENT: Anicteric. CARDIOVASCULAR: Normal S1 and S2. LUNGS: He has moderate breath sounds. ABDOMEN: Soft, nontender, and nondistended. EXTREMITIES: TRACE EDEMA B/L LEGS; left foot 4th and 5th digits absent with well-healed scar. rIght foot heel with gangrenous changes AND MALODOROUS; right foot 5th digit--- SKIN: Dry. PSYCHIATRIC: Flat affect. NEUROLOGICAL: Alert, oriented x3. Moving all extremities. LABS: Reviewed. MEDICATIONS: Reviewed. ASSESSMENT AND PLAN: This is a 52-year-old man 1. Right heel gangrene 2.DFU 3.Uncontrolled DM2 4.Severe obesity, body mass index 46 5.CAD with hx stents 6.CHF- likely diastolic 7.HTN 8.HLD 9.Onychomycosis PLAN IV vanco/zosyn; Wound cx Consult ID COnsult podiatry Consult Cardiology Sed/CRP IV abx broad MRI lovenox; pepcid Law Vale MD, PhD.
--- NOTE | 2018-11-15 16:47 | NUR ---
CASE MANAGEMENT INITIAL ASSESSMENT Group Sales Representative to bedside to discuss plan of care with patient/family. CM/SW role and care transitions discussed. Anticipated discharge plan discussed along with duration of care. CM/SW discussed patients right to make decisions in care. CM/SW work hours given. Patient lives: WITH [facility] Admit/Transfer: ER Hospital/ER visits since last admit:0 POA/Emergency contact: STARR SORIA [phone] Current/Previous Home Health: [facility] FOR WOUND CARE BUT PT AND DO NOT WANT TO USE THEM UPON DISCHARGE; THEY WANT A DIFFERENT HOME HEALTH CARE; WERE NOT HAPPY WITH THE SERVICES RECEIVED BY [facility] PCP/Follow-up Care: [facility] Current/Previous DME: WALKER, CANE, BEDSIDE COMMODE, WHEELCHAIR AND GLUCOMETER Medications (referring to index hospitalization or the first time you were in the hospital) a. Were changes made in your medications when you were in the hospital on [date of index hospitalization]? Yes No Not sure Explain: Note: If no or not sure, please skip to question d b. Did you understand the changes? Yes No Explain: c. Were you able to obtain your new medications right away? Yes No n/a SNF only Explain: d. Were you able to take your medications like the doctor wanted you to? YES e. Did the hospital give you an accurate, easy to understand list of medications when you left? N/A Scale of 1-10 how comfortable does patient feel with disease management in outpatient settin; FAMILY WERE DOING PT'S DRESSING CHANGES TO HIS RIGHT FOOT AT HOME AND MONITORING BLOOD SUGARS Other Services: NONE Employment Status: UNEMPLOYED Areas of Concerns: NEEDS NEW HOME HEALTH CARE FOR WOUND CARE UPON DISCHARGE Referral Needs: HOME HEALTH Education Needs: DC MEDS IMM/RIVERA given and signed (if applicable): IMM ON ADMIT Goal for discharge:TO DC HOME WITH AND HOME HEALTH WHEN READY CM/SW left business card at the bedside with contact information. Name and number was also written on the patients whiteboard. Patient verbalized understanding of discussion. CM will follow-up with ongoing discharge and transition of care needs.
[2018-11-15] MEDS: ENOXAPARIN SOD INJ 40 MG/0.4 ML SYR SC SCH (16:50)
[2018-11-15] MEDS: MORPHINE SULFATE 30 MG TAB ER PO SCH (16:50)
[2018-11-15] MEDS: FAMOTIDINE 20 MG TAB PO SCH (16:52)
[2018-11-15] MEDS: GABAPENTIN 300 MG CAP PO SCH ×2 (16:52→21:34)
[2018-11-15] MEDS ORDERED: METOPROLOL TARTRATE 50 MG TAB PO SCH (17:00)
[2018-11-15] MEDS: ATORVASTATIN 40 MG TAB PO SCH (21:34)
[2018-11-15] MEDS: NIFEDIPINE CR 30 MG TAB PO SCH (21:34)
[2018-11-15] MEDS: HYDROCODONE/APAP 10MG-325MG TAB PO PRN (21:34)
[2018-11-15] MEDS: CYCLOBENZAPRINE HCL 10 MG TAB PO SCH (21:34)
[2018-11-15] MEDS: AZTREONAM (AZACTAM) 0.5 GM in SODIUM CHLORIDE 0.9% 50ML 50 ML IV SCH (21:35)
[2018-11-15] MEDS ORDERED: AZTREONAM 1 GM/NS 50 ML 50 ML IV SCH (22:00)
[2018-11-16] VITALS (8 sets, daily range): BP systolic 109–165; BP diastolic 65–89
--- NOTE | 2018-11-16 04:35 | Consultation ---
DATE OF CONSULTATION: 11/15/2018 Cardiology Consultation. INDICATION: Diabetic foot ulcer. HISTORY OF PRESENT ILLNESS: Mr. Madera is a 52-year-old gentleman, who had diabetes, hypertension, hyperlipidemia, who has a nonhealing ulceration of his right heel. He was admitted for infection, foul smell, and possible osteomyelitis. We have been asked to assess him for his vascular needs. He denies any past vascular or cardiac problems. PAST MEDICAL HISTORY: As listed above. SOCIAL HISTORY: The patient has smoked in the past. REVIEW OF SYSTEMS: Negative except as dictated in the history of present illness. PHYSICAL EXAMINATION: VITAL SIGNS: Afebrile, heart rate is 98, blood pressure is 172/70. CARDIOVASCULAR: Regular rhythm. Systolic murmur, S4 gallop. LUNGS: Clear to auscultation bilaterally. ABDOMEN: Soft. EXTREMITIES: 1+ edema of the right leg with marked cellulitis and warmth and absent pulses. ASSESSMENT: Critical limb ischemia. RECOMMENDATIONS: Urgent doppler ultrasound of the lower extremities for arterial disease will be performed. Further recommendations based on the outcomes of the same with intervention as necessary for limb salvage. I thank Dr. Law Vale for this consultation. MD MAXWELL Dia/CLARE /[id number]
[2018-11-16] MEDS: MORPHINE SULFATE 30 MG TAB ER PO SCH ×2 (04:55→15:40)
[2018-11-16] MEDS: AZTREONAM (AZACTAM) 0.5 GM in SODIUM CHLORIDE 0.9% 50ML 50 ML IV SCH ×5 (04:55→23:15)
--- NOTE | 2018-11-16 06:26 | NUR ---
IM- progress note O/N; no events REVIEW OF SYSTEMS: Denies any fevers, chills, sweats, nausea, vomiting, diarrhea, headache, back pain, chest pain or vision change. PHYSICAL EXAM VITAL SIGNS: Reviewed. GENERAL: A tired-appearing man resting in bed. HEENT: Anicteric. CARDIOVASCULAR: Normal S1 and S2. LUNGS: He has moderate breath sounds. ABDOMEN: Soft, nontender, and nondistended. EXTREMITIES: TRACE EDEMA B/L LEGS; left foot 4th and 5th digits absent with well-healed scar. rIght foot heel with gangrenous changes AND MALODOROUS; right foot 5th digit--- SKIN: Dry. PSYCHIATRIC: Flat affect. NEUROLOGICAL: Alert, oriented x3. Moving all extremities. LABS: Reviewed. MEDICATIONS: Reviewed. ASSESSMENT AND PLAN: This is a 52-year-old man 1. Right heel gangrene 2.DFU 3.Uncontrolled DM2 4.Severe obesity, body mass index 46 5.CAD with hx stents 6.CHF- likely diastolic 7.HTN 8.HLD 9.Onychomycosis PLAN IV vanco/zosyn; Wound cx Consult ID COnsult podiatry Consult Cardiology Sed/CRP IV abx broad MRI lovenox; pepcid 11/16 f/u US studies. GNR in wound; Sed rate 48. Hba1c is 12. LDL 39. Vanco 9. Uptitrate lantus to 25. Law Vale MD, PhD.
[2018-11-16] MEDS: VANCOMYCIN 1GM/NS 250 ML 250 ML IV SCH ×2 (06:27→17:00)
--- NOTE | 2018-11-16 07:04 | NUR ---
Report given to oncoming nurse,walking round done.
[2018-11-16] MEDS: FAMOTIDINE 20 MG TAB PO SCH ×2 (08:30→15:40)
[2018-11-16] MEDS: INSULIN REGULAR, HUMAN 100 UNIT/1 ML 3ML VIAL SQ SCH ×4 (08:30→21:10)
--- NOTE | 2018-11-16 08:45 | NUR ---
SPOKE WITH MD RODRIGUEZ REGARDING REMOVING TELEMETRY WHILE DOWN FOR MRI, ORDERS NOTED
[2018-11-16] MEDS: LISINOPRIL 10 MG TAB PO SCH (09:00)
[2018-11-16] MEDS: INSULIN GLARGINE 100 UNITS/ML VIAL SQ SCH (09:00)
[2018-11-16] MEDS: ASPIRIN 81 MG CHEW TAB PO SCH (09:00)
[2018-11-16] MEDS: CYCLOBENZAPRINE HCL 10 MG TAB PO SCH ×3 (09:00→21:30)
[2018-11-16] MEDS ORDERED: COLLAGENASE 5 GM TUBE TOP SCH (09:00)
[2018-11-16] MEDS ORDERED: INSULIN GLARGINE 100 UNITS/ML VIAL SQ SCH (09:00)
[2018-11-16] MEDS ORDERED: MUPIROCIN 2% OINT 22 GM TUBE TOP SCH (09:00)
[2018-11-16] MEDS: GABAPENTIN 300 MG CAP PO SCH ×3 (09:00→21:30)
[2018-11-16] MEDS: ESCITALOPRAM OXALATE 10 MG TAB PO SCH (09:00)
[2018-11-16] MEDS: METOPROLOL TARTRATE 50 MG TAB PO SCH ×2 (09:00→21:30)
--- NOTE | 2018-11-16 09:30 | NUR ---
PT WHEELED OFF UNIT VIA WC FOR MRI
--- NOTE | 2018-11-16 10:12 | NUR ---
SPOKE WITH MD CHAVIRA, ORDERS NOTED TO TRANSFER TO MED SURG IF NEEDED
--- NOTE | 2018-11-16 10:32 | NUR ---
BACK IN ROOM, ARTERIAL DOPPLER IN PROGRESS, PT MADE AWARE THAT HE IS TRANSFERRING TO ROOM 214 AFTER ROOM IS CLEANED, VERBALIZED UNDERSTANDING, CALL LIGHT WITHIN REACH, FAMILY AT SIDE
--- NOTE | 2018-11-16 11:10 | Diagnostic Imaging Report ---
MRI of the right ankle without contrast. History: Ankle pain. Osteomyelitis. Decreased range of motion. Technique: Utilizing a high-field 1.5T magnet, the following sequences were acquired: PD FS in all 3 planes with additional axial PD. Comparison: Radiographs 11/14/2018 Findings: Achilles tendon and plantar fascia: The Achilles tendon and plantar fascia are normal. Cartilage and bone: Negative for osteochondral lesion of the tibiotalar and subtalar joints. Negative for fracture, osteonecrosis, or dislocation. Medial ankle: The deltoid ligament complex is intact. The medial flexor tendons are normal. There is a physiologic amount of fluid within the tendon sheath of FHL. Lateral ankle: The anterior talofibular, calcaneofibular, and posterior talofibular ligaments are intact. The syndesmotic ligaments are intact. The peroneal tendons are normal. Anterior ankle: The anterior extensor tendons are normal. Other findings: There is a tibiotalar joint effusion and mild synovitis. 3.4 cm skin defect/ulceration at the posterior inferior heel with adjacent abnormal soft tissue edema. Additionally, there is mild abnormal underlying bone marrow edema in the posterior calcaneus. Findings are best seen on sagittal image 9 through 15. This is worrisome for cellulitis and early osteomyelitis. Edema in the plantar musculature could be due to denervation change or possibly myositis. This is best seen on series 7 image 30. Impression: 3.4 cm skin defect/ulceration at the posterior inferior heel with adjacent abnormal soft tissue edema. Additionally, there is mild abnormal underlying bone marrow edema in the posterior calcaneus. This is worrisome for cellulitis and early osteomyelitis. Edema in the plantar musculature could be due to denervation change or possibly myositis. Signed by: Dr. Jonathan Freitas M.D. on 11/16/2018 11:07 AM
--- NOTE | 2018-11-16 11:20 | NUR ---
Received patient via wheelchair. AAOX4 to time, person, place, situation. Respirations even and unlabored. Oriented patient to room. Instructed to use call light for assistance. Voiced understanding. Will continue to monitor.
--- NOTE | 2018-11-16 11:20 | NUR ---
REPORT TO CLAIRE SOLORIO TAKING OVER CARE OF PT, PT TRANSFERRED TO ROOM 214, NO CHANGE IN CONDITION, ALL PERSONAL BELONGINGS WITH PT, FAMILY AT SIDE
[2018-11-16] MEDS: HYDROCODONE/APAP 10MG-325MG TAB PO PRN ×2 (12:15→21:35)
--- NOTE | 2018-11-16 13:38 | Progress Note ---
DATE: 11/16/2018 Cardiology Progress Note SUBJECTIVE: The patient denies chest pain or shortness of breath. He reports his arterial Doppler has not been done so far. OBJECTIVE: VITAL SIGNS: Temperature 99 degrees, pulse 88, respiratory rate is 14, blood pressure 165/89, oxygen saturation 96% on room air. GENERAL: Obese gentleman, in no acute distress, awake and alert. LUNGS: Clear to auscultation bilaterally. No wheezes or crackles. CARDIOVASCULAR: Normal rate, regular rhythm. No murmur. Normal S1, S2. ABDOMEN: Soft, nontender. EXTREMITIES: 1+ pitting edema. Right foot with dressing in place. CARDIAC MEDICATIONS: Metoprolol tartrate 50 mg p.o. q.12 hours, lisinopril 5 mg p.o. daily, aspirin 81 mg p.o. daily, atorvastatin 80 mg p.o. at bedtime, nifedipine 30 mg p.o. at bedtime, enoxaparin 40 mg subcu daily. LABORATORY DATA: None today. IMAGING DATA: Ankle MRI, 3.4 cm skin defect/ulceration at the posterior inferior heel with adjacent abnormal soft tissue edema. Additionally, there is mild abnormal underlying bone marrow edema in the posterior calcaneus, this is worrisome for cellulitis and early osteomyelitis. Edema in the plantar musculature could be due to denervation change or possibly myositis. IMPRESSION: 1. Right heel ulcer, cellulitis, and gangrene. 2. Suspected peripheral arterial disease with critical limb ischemia. 3. Diabetes mellitus, uncontrolled. 4. Coronary artery disease with history of prior stents. 5. Reported congestive heart failure, likely diastolic. 6. Hypertension. 7. Hyperlipidemia. 8. Morbid obesity. RECOMMENDATIONS: Arterial Doppler is pending, we will review images once they are available. Wound care per Podiatry. IV antibiotics per primary service. Continue current cardiac medications. Blood pressure is elevated. If this persists, we will increase nifedipine. Thank you for this consult. We will continue to follow. Laura Mccartney MD ABS/MODL /[id number]
--- NOTE | 2018-11-16 13:50 | NUR ---
EDUCATED ABOUT IMM, SIGNED, FILED IN CHART, WITH COPY LEFT WITH FAMILY AT BEDSIDE.
--- NOTE | 2018-11-16 14:24 | NUR ---
Nutrition Screen Note RD Recommendation for Physician: - Continue 1800 ADA diet Plan of Care: RD following, monitor adequacy and tolerance Nutrition reason for involvement: Nutrition Risk Trigger- MST2 Primary Diagnose(s): infected R heel ulcer PMH: DM2, obesity, CAD, CHF, HTN, HLD Ht: 70 in Wt: 319 lb BMI: 45.8 kg/m2 IBW: [address] Assessment: 11/16: 52 YOM admitted for infected R heel ulcer, gangrenous per MD notes, seen today for MST score of 2. Pt reports good appetite and po intake with difficulties chewing fresh fruits and vegetables due not having any teeth, does not have dentures, and denies difficulties swallowing. Pt denies any GI distress. Pt denies any wt loss, reports UBW of 310#. Pt appropriate for education, however would like and niece present since they cook for the pt. Labs and meds reviewed. Will monitor and continue to follow. Current Diet: 1800 ADA Malnutrition Evaluation (11/16/18) The patient does not meet criteria for a specified degree of malnutrition at this time. Will re-evaluate at follow-up as appropriate. Diet Education Needs Assessment: Diet education indicated, pt opted for education at later date when family is available. Nutrition Care Level: Low Signed: Raven Boyce RD, LD, [facility]
[2018-11-16] MEDS: MUPIROCIN 2% OINT 22 GM TUBE TOP SCH (15:00)
[2018-11-16] MEDS: COLLAGENASE 5 GM TUBE TOP SCH (15:00)
[2018-11-16] MEDS: ENOXAPARIN SOD INJ 40 MG/0.4 ML SYR SC SCH (15:40)
[2018-11-16] MEDS ORDERED: CEFEPIME 2 GM/NS 0.9% 100 ML 100 ML IV SCH (18:30)
--- NOTE | 2018-11-16 18:32 | NUR ---
Resting in bed. No s/s of acute distress noted. Report to be given to oncoming nurse.
[2018-11-16] MEDS ORDERED: AZTREONAM 1 GM VIAL ONE (21:21)
[2018-11-16] MEDS: CEFEPIME 2 GM/NS 0.9% 100 ML 100 ML IV SCH (21:30)
[2018-11-16] MEDS: ATORVASTATIN 40 MG TAB PO SCH (21:30)
[2018-11-16] MEDS: NIFEDIPINE CR 30 MG TAB PO SCH (21:30)
[2018-11-16] MEDS: MORPHINE SULFATE INJ 4 MG/ML INJ 1ML IV PRN (23:51)
[2018-11-16] MEDS ORDERED: IOPAMIDOL 370 MG/ML 200 ML INFUS..BTL INJ ONE (23:57)
[2018-11-16] MEDS ORDERED: SODIUM CHLORIDE 0.9% 100 ML 100 ML ONE (23:57)
[2018-11-17] VITALS (8 sets, daily range): BP systolic 129–165; BP diastolic 64–81
--- NOTE | 2018-11-17 03:58 | Consultation ---
DATE OF CONSULTATION: 11/16/2018 HISTORY OF PRESENT ILLNESS: This is a 52-year-old white male with history of diabetes mellitus, hypertension, hyperlipidemia, obesity, who has been having problem with his right foot on and off for the last 6 months. The patient had right heel ulcers. He had been dealing with it with oral antibiotic. He had been getting wound care without any improvement. He is being admitted because he was getting progressively worse. The patient does have history of diabetes mellitus, disease, hypertension, obesity, hyperlipidemia, comes in today . The patient is being admitted because he is getting progressively worse. The patient is currently lying in bed comfortably. He has no complaints and he is telling me that he did have an x-ray and MRI. He has already been seen by Cardiology for vascular workup. PAST MEDICAL HISTORY: As mentioned above. PAST SURGICAL HISTORY: He had multiple debridements on his foot. ALLERGIES: NKA. SOCIAL HISTORY: There is no smoking, drug abuse or alcohol abuse. FAMILY HISTORY: Noncontributory. REVIEW OF SYSTEMS: HEENT: Negative. PULMONARY: Negative. CARDIAC: Negative. : Negative. SKIN: There is no rash. PHYSICAL EXAMINATION: GENERAL: He is currently alert, does not seem to be in acute distress. VITAL SIGNS: Stable. Currently afebrile. HEENT: He is not icteric. NECK: Supple. CHEST: Clear. HEART: S1 and S2. No murmurs. ABDOMEN: Soft . EXTREMITIES: foot, there is a heel ulcer which is large about 3-4 cm on the posterior aspect. There is some erythema and edema around it, deep. IMPRESSION: 1. Osteomyelitis of heel with an ulcer. The patient with diabetes mellitus, obesity, hypertension, concerned about disease, peripheral vascular disease. His laboratory data reviewed vancomycin and Azactam. I would recommend . We will try cefepime and if this is an allergy, but he did well with cephalosporin before. He will need surgical debridement. Podiatry, he may end up with [id number] amputation. 2. Diabetes mellitus, not controlled, being managed by Internal Medicine. Agree with strict control vascular workup. Concerned about peripheral vascular disease. Agree with vascular workup. We will follow with you. MD ANAMARIA Hurtado/MODL /[id number]
[2018-11-17] MEDS: MORPHINE SULFATE 30 MG TAB ER PO SCH ×2 (04:04→16:00)
[2018-11-17] MEDS: AZTREONAM (AZACTAM) 0.5 GM in SODIUM CHLORIDE 0.9% 50ML 50 ML IV SCH ×4 (05:25→23:00)
[2018-11-17] MEDS: VANCOMYCIN 1GM/NS 250 ML 250 ML IV SCH ×2 (07:05→17:40)
[2018-11-17] MEDS ORDERED: SODIUM CHLORIDE 0.9% 250ML 0 ML ONE (07:15)
--- NOTE | 2018-11-17 07:25 | Diagnostic Imaging Report ---
EXAMINATION: CT angiography of the abdomen and pelvis and lower extremities with contrast. TECHNIQUE: Spiral CT images of the abdomen and pelvis and lower extremities were performed from the lung bases to the feet after the intravenous administration of 100 cc of Isovue-370. Coronal and sagittal reformatted images were obtained. For optimization of anatomic detail, volume rendered 3-D reconstructed images were generated on a stand-alone workstation under direct supervision of the interpreting physician. COMPARISON: Arterial Doppler performed 11/16/2018 CLINICAL HISTORY:Peripheral artery disease DISCUSSION: Vasculature: The abdominal aorta is nonaneurysmal. Atherosclerotic plaque at the celiac axis origin without significant stenosis. Left hepatic artery replaced to the left gastric artery. Otherwise conventional celiac anatomy. Patent single bilateral renal arteries. Patent SMA and SOBEIDA. Iliac arterial system: Right: Calcified and noncalcified atherosclerotic plaque results in mild stenosis at the proximal common iliac artery. The distal common iliac artery, external iliac artery, internal iliac artery and visceral branches are patent without significant stenosis. Left: Calcified and noncalcified atherosclerotic plaque along the common and external iliac artery without significant stenosis. Internal iliac artery and visceral branches are patent. Femoral-popliteal segments: Right: Common femoral artery is patent. Femoral bifurcation is patent. Profunda femoris artery and proximal muscular branches are patent. Densely calcified atherosclerotic plaque along the course of the superficial femoral artery slightly limits evaluation. No significant SFA stenosis is appreciated. The popliteal artery is patent with moderate distal stenosis. Left: The common femoral artery is patent. Femoral bifurcation is patent. Profunda femoris artery and proximal muscular branches are patent. Calcified atherosclerotic plaque slightly limits evaluation of the superficial femoral artery. No significant stenosis is appreciated. The popliteal artery shows mild diffuse disease. Runoff: Right: There is severe stenosis at the origin of the anterior tibial artery, which is otherwise patent and is visualized to its continuation as the dorsalis pedis artery. There is moderate-severe stenosis of the TP trunk. The posterior tibial artery is diffusely diseased with intermittent occlusion at the upper calf, though is visualized distally as the continuation as the lateral plantar artery. The peroneal artery is patent to its termination at the ankle joint. Left: The anterior tibial artery is patent to its continuation as the dorsalis pedis artery. The tibioperoneal trunk is patent with short segment moderate stenosis distally. The posterior tibial artery is patent to its continuation as the lateral plantar artery. The peroneal artery is diffusely diseased and is poorly visualized along its course. ABDOMEN/PELVIS: LOWER THORAX:Unremarkable. HEPATOBILIARY: No focal hepatic lesions. No intra-or extrahepatic biliary ductal dilation. The gallbladder is normal. SPLEEN: No splenomegaly. PANCREAS: No focal masses or ductal dilatation. ADRENALS: No adrenal nodules. KIDNEYS/URETERS: No hydronephrosis, stones, or solid mass lesions. PELVIC ORGANS/BLADDER: The bladder is normal. PERITONEUM/RETROPERITONEUM: No free air or fluid. LYMPH NODES: Mildly prominent right inguinal lymph nodes likely reactive. No pelvic sidewall, retroperitoneal, or mesenteric lymphadenopathy. VESSELS: As above. GI TRACT: The large bowel shows no evidence of distention or wall thickening. Gas and fecal material is noted throughout. The large bowel is markedly redundant. Appendix is normal. Stomach is collapsed with prominent rugal folds. No small bowel dilatation to suggest obstruction BONES AND SOFT TISSUE: Partially visualized partial amputations of the left fourth and fifth rays with overlying soft tissue thickening. No osseous destructive lesions. 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 Subcutaneous edema and skin thickening of the lower extremities right greater than left. Subcutaneous edema and right heel ulcer as described on MRI 11/16/2018. Surgical clips in the subcutaneous fat of the left thigh presumably related to prior venous graft harvest. IMPRESSION: Diffuse atherosclerotic vascular disease with pertinent findings as follows: Normal caliber abdominal aorta without significant visceral branch stenosis. No significant iliac inflow stenosis. Moderate stenosis of the distal right popliteal artery. Otherwise no significant femoral-popliteal stenoses. Suboptimally evaluated suspected two-vessel runoff bilaterally. Refer to MRI of the right ankle performed 11/16/2018 for further details of heel ulceration and subcutaneous edema. Signed by: Dr. Luis Antonio Mcdonnell M.D. on 11/17/2018 7:21 AM
[2018-11-17] MEDS: FAMOTIDINE 20 MG TAB PO SCH ×2 (08:35→16:00)
[2018-11-17] MEDS: ESCITALOPRAM OXALATE 10 MG TAB PO SCH (08:35)
[2018-11-17] MEDS: CYCLOBENZAPRINE HCL 10 MG TAB PO SCH ×3 (08:35→21:24)
[2018-11-17] MEDS: METOPROLOL TARTRATE 50 MG TAB PO SCH ×2 (08:35→21:26)
[2018-11-17] MEDS: ASPIRIN 81 MG CHEW TAB PO SCH (08:35)
[2018-11-17] MEDS: LISINOPRIL 10 MG TAB PO SCH (08:35)
[2018-11-17] MEDS: GABAPENTIN 300 MG CAP PO SCH ×3 (08:35→21:26)
[2018-11-17] MEDS: INSULIN GLARGINE 100 UNITS/ML VIAL SQ SCH (09:00)
[2018-11-17] MEDS: CEFEPIME 2 GM/NS 0.9% 100 ML 100 ML IV SCH (09:00)
[2018-11-17] MEDS: INSULIN REGULAR, HUMAN 100 UNIT/1 ML 3ML VIAL SQ SCH (09:00)
[2018-11-17] MEDS ORDERED: SODIUM CHLORIDE 0.9% 250ML 250 ML ONE (12:41)
[2018-11-17] MEDS: HYDROCODONE/APAP 10MG-325MG TAB PO PRN (12:50)
[2018-11-17] MEDS: INSULIN LISPRO 100 UNIT/1 ML 3ML VIAL SQ SCH ×3 (12:50→21:00)
[2018-11-17] MEDS: COLLAGENASE 5 GM TUBE TOP SCH (15:00)
[2018-11-17] MEDS: MUPIROCIN 2% OINT 22 GM TUBE TOP SCH (15:00)
[2018-11-17] MEDS: ENOXAPARIN SOD INJ 40 MG/0.4 ML SYR SC SCH (16:00)
--- NOTE | 2018-11-17 16:32 | Progress Note ---
DATE: 11/17/2018 Cardiology Progress Note SUBJECTIVE: The patient denies chest pain or shortness of breath. OBJECTIVE: VITAL SIGNS: Temperature 97 degrees, pulse 79, respiratory rate 16, blood pressure 165/78, and oxygen saturation 97% on room air. GENERAL: Obese woman, in no acute distress. Awake and alert. LUNGS: Clear to auscultation bilaterally. No wheezes or crackles. CARDIOVASCULAR: Normal rate. Regular rhythm. No murmur. Normal S1, S2. ABDOMEN: Soft and nontender. EXTREMITIES: 1+ pitting edema. Right foot with dressing in place. CARDIAC MEDICATIONS: Metoprolol tartrate 50 mg p.o. q.12 hours, lisinopril 5 mg p.o. daily, aspirin 81 mg p.o. daily, atorvastatin 80 mg p.o. at bedtime, and nifedipine 30 mg p.o. at bedtime. LABORATORY DATA: None today. CT abdomen and pelvis with runoff, diffuse atherosclerotic vascular disease with pertinent findings as follows: Normal caliber abdominal aorta without significant visceral branch stenosis. No significant iliac inflow stenosis. Moderate stenosis of the right popliteal artery. Severe stenosis at the origin of the anterior tibial artery, which is otherwise patent and is visualized to its continuation as the dorsalis pedis artery. There is ywbekejy-[id number]-mpecbq stenosis of the TP trunk. The posterior tibial artery is diffusely diseased with intermittent occlusion at the upper calf, though is visualized distally as continuation as lateral plantar artery. Peroneal artery is patent to its termination at the ankle joint. TELEMETRY: Normal sinus rhythm. IMPRESSION: 1. Right heel ulcer, cellulitis and gangrene. 2. Peripheral arterial disease with critical limb ischemia. 3. Diabetes mellitus, uncontrolled. 4. Coronary artery disease with history of prior stents. 5. Reported congestive heart failure, likely diastolic. 6. Hypertension. 7. Hyperlipidemia. 8. Morbid obesity. RECOMMENDATIONS: Arterial Doppler was suggestive of peripheral arterial disease. CTA of the abdomen and pelvis with runoff suggest predominantly infrapopliteal peripheral arterial disease. Plan for peripheral angiogram tomorrow provided cathode builder is back in operation. Wound care per Podiatry. IV antibiotics per Infectious Disease. Continue current cardiac medications. The patient's blood pressure is improved. We will monitor for now. Thank you for this consult. We will continue to follow. MD SHERRI Palacios/MALICKL /[id number]
--- NOTE | 2018-11-17 19:34 | NUR ---
Patient received sitting up in bed. AAO x 4. Patient had no complaints of pain. Respirations even and non-labored, Fall precautions implemented. Patient instructed to call for assistance when needed. Call light within reach.
--- NOTE | 2018-11-17 19:53 | Progress Note ---
DATE: 11/17/2018 SUBJECTIVE: Mr. Madera is doing better. There are no new complaints. REVIEW OF SYSTEMS: HEENT: Negative. PULMONARY: Negative. CARDIAC: Negative. Nothing new. His cultures are showing gram-negative rods. His MRI showed there is 3.4 cm skin defect with ulcers. There is osteomyelitis of posterior calcaneus. PHYSICAL EXAMINATION: GENERAL: He is currently alert and oriented, does not seem to be in acute distress. VITAL SIGNS: Stable, currently afebrile. HEENT: He is not icteric. NECK: Supple. CHEST: Clear. HEART: S1, S2. No S3, S4, or murmur. ABDOMEN: Soft. Bowel sounds present. EXTREMITIES: No edema. IMPRESSION AND PLAN: Osteomyelitis. Continue with IV antibiotic. Ulcer as above. Continue with local care. Vascular workup is in progress. We will follow. MD ANAMARIA Hurtado/CLARE /[id number]
[2018-11-17] MEDS: ATORVASTATIN 40 MG TAB PO SCH (21:24)
[2018-11-17] MEDS: NIFEDIPINE CR 30 MG TAB PO SCH (21:26)
--- NOTE | 2018-11-17 23:26 | NUR ---
PICC line placement completed
[2018-11-18] VITALS (8 sets, daily range): BP systolic 135–169; BP diastolic 72–88
--- NOTE | 2018-11-18 01:23 | Diagnostic Imaging Report ---
Examination: Single AP view of the chest. COMPARISON: None. INDICATION: Status post PICC line placement IMPRESSION: 1. Exam limited by soft tissue attenuation. 2. Right-sided PICC line has distal portion projecting in the proximal SVC, however, the tip is not clearly visualized. 3. Lungs are grossly clear. Enlarged cardiac silhouette. Signed by: Dr. Feliberto Rob M.D. on 11/18/2018 1:20 AM
[2018-11-18] MEDS: MORPHINE SULFATE INJ 4 MG/ML INJ 1ML IV PRN ×2 (01:54→20:54)
[2018-11-18] MEDS: MORPHINE SULFATE 30 MG TAB ER PO SCH ×2 (04:00→15:47)
[2018-11-18] MEDS: AZTREONAM (AZACTAM) 0.5 GM in SODIUM CHLORIDE 0.9% 50ML 50 ML IV SCH (04:46)
--- NOTE | 2018-11-18 04:59 | NUR ---
IM- progress note O/N; no events REVIEW OF SYSTEMS: Denies any fevers, chills, sweats, nausea, vomiting, diarrhea, headache, back pain, chest pain or vision change. PHYSICAL EXAM VITAL SIGNS: Reviewed. GENERAL: A tired-appearing man resting in bed. HEENT: Anicteric. CARDIOVASCULAR: Normal S1 and S2. LUNGS: He has moderate breath sounds. ABDOMEN: Soft, nontender, and nondistended. EXTREMITIES: TRACE EDEMA B/L LEGS; left foot 4th and 5th digits absent with well-healed scar. rIght foot heel with gangrenous changes AND MALODOROUS; right foot 5th digit--- SKIN: Dry. PSYCHIATRIC: Flat affect. NEUROLOGICAL: Alert, oriented x3. Moving all extremities. LABS: Reviewed. MEDICATIONS: Reviewed. ASSESSMENT AND PLAN: This is a 52-year-old man 1. Right heel gangrene 2.DFU 3.Uncontrolled DM2 4.Severe obesity, body mass index 46 5.CAD with hx stents 6.CHF- likely diastolic 7.HTN 8.HLD 9.Onychomycosis PLAN IV vanco/zosyn; Wound cx Consult ID COnsult podiatry Consult Cardiology Sed/CRP IV abx broad MRI lovenox; pepcid 11/16 f/u US studies. GNR in wound; Sed rate 48. Hba1c is 12. LDL 39. Vanco 9. Uptitrate lantus to 25. 11/17 control glucose; start premeal insulin; f/u cx; f/u sx plan; f/u vascular studies. 11/18 infrapopliteal peripheral vasc ds. Law Vale MD, PhD.
[2018-11-18] MEDS: FAMOTIDINE 20 MG TAB PO SCH ×2 (07:30→15:03)
[2018-11-18] MEDS: VANCOMYCIN 1GM/NS 250 ML 250 ML IV SCH ×2 (08:49→17:04)
[2018-11-18] MEDS: GABAPENTIN 300 MG CAP PO SCH ×3 (08:57→21:57)
[2018-11-18] MEDS: INSULIN LISPRO 100 UNIT/1 ML 3ML VIAL SQ SCH ×4 (08:57→21:00)
[2018-11-18] MEDS: CYCLOBENZAPRINE HCL 10 MG TAB PO SCH ×3 (08:57→21:57)
[2018-11-18] MEDS: ESCITALOPRAM OXALATE 10 MG TAB PO SCH (08:57)
[2018-11-18] MEDS: METOPROLOL TARTRATE 50 MG TAB PO SCH ×2 (08:57→21:45)
[2018-11-18] MEDS: ASPIRIN 81 MG CHEW TAB PO SCH (08:57)
[2018-11-18] MEDS: INSULIN GLARGINE 100 UNITS/ML VIAL SQ SCH (08:58)
[2018-11-18] MEDS: LISINOPRIL 10 MG TAB PO SCH (08:58)
[2018-11-18] MEDS ORDERED: LIDOCAINE HCL 2% LOCAL 20 ML VIAL ONE (10:52)
[2018-11-18] MEDS ORDERED: MIDAZOLAM HCL 2 MG/2 ML VIAL ONE (10:52)
[2018-11-18] MEDS ORDERED: HEPARIN SOD (PORCINE) 1000 UNIT/ML 30ML ONE (10:52)
[2018-11-18] MEDS ORDERED: HEPARIN SOD/SOD CHLORIDE 0 ML ONE (10:52)
[2018-11-18] MEDS ORDERED: SODIUM CHLORIDE 0.9% 1000ML 0 ML ONE (10:52)
[2018-11-18] MEDS ORDERED: NITROGLYCERIN/D5W 200 MCG/ML 0 ML ONE (10:52)
[2018-11-18] MEDS ORDERED: IOPAMIDOL 300MG/ML 100 ML INFUS..BTL IV ONE (10:53)
[2018-11-18] MEDS ORDERED: FENTANYL CITRATE/PF 100MCG/2 ML INJ ONE (10:53)
--- NOTE | 2018-11-18 11:59 | NUR ---
CM to bedside to discuss [facility] patients rights. IMM discussed and signature obtained from patient. Patient verbalized understanding of discussion. Copy of IMM to chart and copy left in Transition in Care folder.
[2018-11-18] MEDS: MUPIROCIN 2% OINT 22 GM TUBE TOP SCH (12:29)
[2018-11-18] MEDS: COLLAGENASE 5 GM TUBE TOP SCH (12:29)
--- NOTE | 2018-11-18 13:12 | Progress Note ---
DATE: 11/18/2018 Cardiology Progress Note SUBJECTIVE: The patient has no complaints. OBJECTIVE: VITAL SIGNS: Temperature 97.6 degrees, pulse 80, respiratory rate 20, blood pressure 140/76, and oxygen saturation 95% on room air. GENERAL: Obese woman, in no acute distress. Awake and alert. LUNGS: Clear to auscultation bilaterally. No wheezes or crackles. CARDIOVASCULAR: Normal rate, regular rhythm. No murmur. Normal S1, S2. ABDOMEN: Soft, nontender. EXTREMITIES: 1+ pitting edema of right foot with dressing in place. CARDIAC MEDICATIONS: Nifedipine 30 mg p.o. at bedtime, atorvastatin 80 mg p.o. at bedtime, metoprolol tartrate 50 mg p.o. q.12 hours, Lexapro 5 mg p.o. daily, and aspirin 81 mg p.o. daily. LABORATORY DATA: None today. TELEMETRY: Normal sinus rhythm. IMPRESSION: 1. Right heel ulcer, cellulitis, and gangrene. 2. Peripheral arterial disease with critical limb ischemia. 3. Diabetes mellitus, uncontrolled. 4. Coronary artery disease with history of prior stents. 5. Reported congestive heart failure, likely diastolic. 6. Hypertension. 7. Hyperlipidemia. 8. Morbid obesity. RECOMMENDATIONS: Arterial Doppler was suggestive of peripheral arterial disease. CTA of the abdomen and pelvis with runoff suggested predominantly infrapopliteal peripheral arterial disease. Unfortunately, due to scheduling, the patient will not be able to have peripheral angiogram today, planned for Wednesday. Wound care per Podiatry. IV antibiotics per Infectious Disease. Continue current cardiac medications. The patient's blood pressure is reasonable. We will continue current therapy. Thank you for this consult. We will continue to follow. Laura Mccartney MD ABS/MODL /[id number]
[2018-11-18] MEDS ORDERED: MEROPENEM 500MG 500 MG in SODIUM CHLORIDE 0.9% 50ML 50 ML IV SCH (14:00)
[2018-11-18] MEDS: MEROPENEM 500MG/ NS 50ML 50 ML IV SCH ×2 (14:56→22:00)
[2018-11-18] MEDS: ENOXAPARIN SOD INJ 40 MG/0.4 ML SYR SC SCH (16:54)
--- NOTE | 2018-11-18 17:10 | NUR ---
spoke to in regards to consult for this patient and, per MD, this nurse was asked to call answering service to have on-call MD notified to come see patient. consult was called in to answering service per .
[2018-11-18] MEDS: ATORVASTATIN 40 MG TAB PO SCH (21:45)
[2018-11-18] MEDS: NIFEDIPINE CR 30 MG TAB PO SCH (21:57)
[2018-11-19] VITALS (10 sets, daily range): BP systolic 129–170; BP diastolic 73–97
[2018-11-19] MEDS: MORPHINE SULFATE INJ 4 MG/ML INJ 1ML IV PRN ×3 (03:18→23:27)
[2018-11-19] MEDS: MORPHINE SULFATE 30 MG TAB ER PO SCH ×2 (04:42→15:24)
[2018-11-19] MEDS: MEROPENEM 500MG/ NS 50ML 50 ML IV SCH ×3 (06:00→20:43)
[2018-11-19] MEDS: VANCOMYCIN 1GM/NS 250 ML 250 ML IV SCH ×2 (07:42→17:28)
[2018-11-19] MEDS: ASPIRIN 81 MG CHEW TAB PO SCH (09:13)
[2018-11-19] MEDS: ESCITALOPRAM OXALATE 10 MG TAB PO SCH (09:13)
[2018-11-19] MEDS: LISINOPRIL 10 MG TAB PO SCH (09:13)
[2018-11-19] MEDS: GABAPENTIN 300 MG CAP PO SCH ×3 (09:13→20:43)
[2018-11-19] MEDS: CYCLOBENZAPRINE HCL 10 MG TAB PO SCH ×3 (09:13→20:42)
[2018-11-19] MEDS: METOPROLOL TARTRATE 50 MG TAB PO SCH ×2 (09:13→20:43)
[2018-11-19] MEDS: FAMOTIDINE 20 MG TAB PO SCH ×2 (09:13→17:08)
[2018-11-19] MEDS: INSULIN GLARGINE 100 UNITS/ML VIAL SQ SCH (09:14)
[2018-11-19] MEDS: INSULIN LISPRO 100 UNIT/1 ML 3ML VIAL SQ SCH ×4 (09:14→20:47)
[2018-11-19] MEDS: COLLAGENASE 5 GM TUBE TOP SCH (12:24)
[2018-11-19] MEDS: MUPIROCIN 2% OINT 22 GM TUBE TOP SCH (12:24)
[2018-11-19] MEDS: ENOXAPARIN SOD INJ 40 MG/0.4 ML SYR SC SCH (17:08)
--- NOTE | 2018-11-19 17:38 | Progress Note ---
DATE: 11/19/2018 Cardiology Progress Note SUBJECTIVE: No major events overnight. OBJECTIVE: VITAL SIGNS: Temperature afebrile, pulse 89, respiratory rate 20, blood pressure 129/87, saturating 95% on room air. GENERAL: Well developed, well nourished, no acute distress. Obese. CARDIOVASCULAR: Regular rate and rhythm. No murmurs, rubs, or gallops. LUNGS: Clear to auscultation. ABDOMEN: Obese, soft, nontender, nondistended. EXTREMITIES: 1+ edema. Right foot wound with dressing in place. NEURO AND PSYCH: Alert, oriented to person, place, and time. Normal affect. CARDIOVASCULAR MEDICATIONS: Reviewed. LABORATORY DATA: Reviewed. TELEMETRY DATA: Reviewed. ASSESSMENT AND PLAN: 1. Right heel ulcer, cellulitis, and gangrene. 2. Peripheral arterial disease with critical limb ischemia. 3. Diabetes. 4. Coronary artery disease. 5. History of diastolic congestive heart failure. 6. Hypertension. 7. Hyperlipidemia. 8. Morbid obesity. RECOMMENDATIONS: Arterial Doppler suggests severe peripheral arterial disease. CTA showed predominantly infrapopliteal PAD. The patient was already in a plan to have peripheral angiogram and intervention done on Wednesday. However, due to difficult issues had to be rescheduled for Wednesday. Wound care per Podiatry. Continue current cardiovascular medications. Please keep n.p.o. after midnight. Thank you for this consult. We will continue to follow. MD RYAN Rosenberg/CLARE /[id number]
--- NOTE | 2018-11-19 17:43 | NUR ---
consult called in to podiatry, spoke to Nanci from 's answering service to have on-call aligner paged and requested call back.
--- NOTE | 2018-11-19 18:55 | NUR ---
BEDSIDE ROUNDING DONE. PT RESTING QUIETLY EASILY AROUSED. PATIENT REPORTED PAIN ON THE RIGHT HEEL AT 7/10 AND WOULD LIKE PAIN MEDICATION.
[2018-11-19] MEDS: ATORVASTATIN 40 MG TAB PO SCH (20:42)
[2018-11-19] MEDS: NIFEDIPINE CR 30 MG TAB PO SCH (20:43)
[2018-11-20] VITALS (8 sets, daily range): BP systolic 115–152; BP diastolic 73–87
[2018-11-20] MEDS: MORPHINE SULFATE 30 MG TAB ER PO SCH ×2 (04:20→16:00)
[2018-11-20] MEDS: MEROPENEM 500MG/ NS 50ML 50 ML IV SCH ×3 (04:20→22:30)
[2018-11-20] MEDS: VANCOMYCIN 1GM/NS 250 ML 250 ML IV SCH ×2 (05:06→18:24)
[2018-11-20] MEDS: MORPHINE SULFATE INJ 4 MG/ML INJ 1ML IV PRN ×4 (05:29→20:30)
--- NOTE | 2018-11-20 07:07 | NUR ---
IM- progress note O/N; no events REVIEW OF SYSTEMS: Denies any fevers, chills, sweats, nausea, vomiting, diarrhea, headache, back pain, chest pain or vision change. PHYSICAL EXAM VITAL SIGNS: Reviewed. GENERAL: A tired-appearing man resting in bed. HEENT: Anicteric. CARDIOVASCULAR: Normal S1 and S2. LUNGS: He has moderate breath sounds. ABDOMEN: Soft, nontender, and nondistended. EXTREMITIES: TRACE EDEMA B/L LEGS; left foot 4th and 5th digits absent with well-healed scar. rIght foot heel with gangrenous changes AND MALODOROUS; right foot 5th digit--- SKIN: Dry. PSYCHIATRIC: Flat affect. NEUROLOGICAL: Alert, oriented x3. Moving all extremities. LABS: Reviewed. MEDICATIONS: Reviewed. ASSESSMENT AND PLAN: This is a 52-year-old man 1. Right heel gangrene 2.DFU 3.Uncontrolled DM2 4.Severe obesity, body mass index 46 5.CAD with hx stents 6.CHF- likely diastolic 7.HTN 8.HLD 9.Onychomycosis PLAN IV vanco/zosyn; Wound cx Consult ID COnsult podiatry Consult Cardiology Sed/CRP IV abx broad MRI lovenox; pepcid 11/16 f/u US studies. GNR in wound; Sed rate 48. Hba1c is 12. LDL 39. Vanco 9. Uptitrate lantus to 25. 11/17 control glucose; start premeal insulin; f/u cx; f/u sx plan; f/u vascular studies. 11/18 infrapopliteal peripheral vasc ds. 11/19 check labs; WOund infection with Citrobacter braakii and Alcaligenes faecalis. cont abx per ID, on vanco./merrem 11/20 check labs; Law Vale MD, PhD.
[2018-11-20 07:44] LABS: BASOPHILS % 0.3 % (0.0-1.0); EOSINOPHILS # (AUTO) 0.3 (0.0-0.4); EOSINOPHILS % 4.3 % (0.0-6.0); HEMATOCRIT 32.2 % (38.2-49.6); HEMOGLOBIN 9.8 g/dL (14.0-18.0); LYMPHOCYTES # (AUTO) 2.4 (1.0-3.2); LYMPHOCYTES % 32.3 % (18.0-39.1); MEAN CORPUSCULAR HEMOGLOBIN 25.9 pg (28-32); MEAN CORPUSCULAR HGB CONC 30.4 g/dL (31-35); MONOCYTES # (AUTO) 0.5 (0.2-0.8); NEUTROPHILS # (AUTO) 4.2 (2.1-6.9); NEUTROPHILS % 55.6 % (38.7-80.0); PLATELET COUNT 332 x10e3/uL (140-360); RED BLOOD COUNT 3.79 x10e6/uL (4.3-5.7); RED CELL DISTRIBUTION WIDTH 14.9 % (11.7-14.4)
[2018-11-20 07:51] LABS: BLOOD UREA NITROGEN 10 mg/dL (7-26); BUN/CREATININE RATIO 14 (6-25); CALCIUM 8.5 mg/dL (8.4-10.2); CARBON DIOXIDE 30 mmol/L (22-29); CHLORIDE 100 mmol/L (98-107); CREATININE, SERUM 0.74 mg/dL (0.72-1.25); EST GLOMERULAR FILTRATION RATE > 60 ML/MIN (60-); GLUCOSE 171 mg/dL (74-118); SODIUM 135 mmol/L (136-145)
[2018-11-20] MEDS: FAMOTIDINE 20 MG TAB PO SCH ×2 (08:53→16:30)
[2018-11-20] MEDS: ASPIRIN 81 MG CHEW TAB PO SCH (08:53)
[2018-11-20] MEDS: LISINOPRIL 10 MG TAB PO SCH (08:54)
[2018-11-20] MEDS: GABAPENTIN 300 MG CAP PO SCH ×3 (08:54→20:29)
[2018-11-20] MEDS: ESCITALOPRAM OXALATE 10 MG TAB PO SCH (08:54)
[2018-11-20] MEDS: CYCLOBENZAPRINE HCL 10 MG TAB PO SCH ×3 (08:54→20:29)
[2018-11-20] MEDS: METOPROLOL TARTRATE 50 MG TAB PO SCH ×2 (08:54→20:29)
[2018-11-20] MEDS: INSULIN LISPRO 100 UNIT/1 ML 3ML VIAL SQ SCH ×4 (08:55→21:21)
[2018-11-20] MEDS: INSULIN GLARGINE 100 UNITS/ML VIAL SQ SCH (08:55)
--- NOTE | 2018-11-20 09:00 | NUR ---
patient enocuraged to shower and he refused. teaching provided on need for hibicleanse shower before bedtime tonight and again in am to prepare for procedure in am and he states understandment while also stating "I'll shower tonight."
[2018-11-20] MEDS: COLLAGENASE 5 GM TUBE TOP SCH (11:32)
[2018-11-20] MEDS: MUPIROCIN 2% OINT 22 GM TUBE TOP SCH (11:33)
--- NOTE | 2018-11-20 15:03 | Consultation ---
DATE OF CONSULTATION: 11/20/[address] Ernandez. HISTORY: The patient was seen at bedside today. He is a patient of Dr. José Luis Ernandez. He says that he had seen him as outpatient, he told that he had a good hold of the wound, so he stopped seeing him, then he discontinued to do local wound care. The wound became infected and he came into the emergency room. PAST MEDICAL HISTORY: Diabetes mellitus, PVD, hypertension, obesity, and hyperlipidemia. PAST SURGICAL HISTORY: He has had multiple debridements to his foot. ALLERGIES: NO KNOWN ALLERGIES. SOCIAL HISTORY: He denies alcohol, tobacco, or illicit drug use. FAMILY HISTORY: Noncontributory. REVIEW OF SYSTEMS: There is a full-thickness ulcer to the plantar aspect of the right heel. PHYSICAL EXAMINATION: Lower extremity physical exam, pedal pulses are diminished. Capillary refill time is delayed. Skin is thin, shiny and atrophic. Ulcer is full thickness down to the capsule, right now it is about 80% fibrotic and 20% granular, most of the granular tissue is at the periphery. There is localized erythema and edema. There is no streaking erythema, no sign of lymphangitis at this point. There is large amounts of edema noted to bilateral lower extremities and is nonpitting and it appears to be lymphedematous in nature. LABORATORY DATA: His white blood count has come down from 9.94 to 7.52 as of 11/20. His neutrophils are also decreasing. His wound culture is positive and sensitive to the meropenem that he is on. Knee MRI reads a 3.5 ulceration with a normal bone marrow edema, worrisome for early osteomyelitis. ASSESSMENT: 1. Diabetic foot ulcer, grade 3, right foot. 2. Lymphedema, right foot. 3. Peripheral vascular disease. 4. History of noncompliance. PLAN: At this point, he is going to have vascular intervention tomorrow. He is probably going to need a debridement, Dr. Ernandez will follow. He is aware that he is probably also going to need compression therapy to decrease that edema and he is going to need to be compliant and nonweightbearing to the right lower extremity. He is going to need long-term antibiotic and this is being managed by Infectious Disease. I have answered all questions and we will continue to follow. On the wound care, I agree with continuing the Santyl with normal saline wet-to-dry daily for enzymatic debridement. VIC Meredith/CLARE /[id number]
[2018-11-20] MEDS: ENOXAPARIN SOD INJ 40 MG/0.4 ML SYR SC SCH ×2 (16:30→16:44)
--- NOTE | 2018-11-20 17:03 | Progress Note ---
DATE: 11/20/2018 Cardiology Progress Note SUBJECTIVE: No major events overnight. OBJECTIVE: VITAL SIGNS: Temperature 97.8, pulse 79, respiratory rate 20, blood pressure 138/76, saturating 95% on room air. GENERAL: Well developed, well nourished, in no acute distress. CARDIOVASCULAR: Regular rate and rhythm. No murmurs, rubs, or gallops. LUNGS: Clear to auscultation bilaterally. ABDOMEN: Very obese, soft, nontender, nondistended. EXTREMITIES: 3+ edema. Right foot wound with dressing in place. NEURO AND PSYCH: Alert and oriented to person, place, and time. Normal affect. CARDIOVASCULAR MEDICATIONS: Reviewed. LABORATORY DATA: Reviewed. TELEMETRY DATA: Reviewed. ASSESSMENT: 1. Right heel ulcer, cellulitis, and gangrene. 2. Peripheral arterial disease with critical limb ischemia. 3. Diabetes. 4. Coronary artery disease. 5. History of diastolic congestive heart failure. 6. Hypertension. 7. Hyperlipidemia. 8. Morbid obesity. RECOMMENDATIONS: Plan for peripheral angiography and intervention likely tomorrow. Please keep the patient n.p.o. Wound care per Podiatry. Thank you for this consult. We will continue to follow. MD RYAN Rosenberg/CLARE /[id number]
[2018-11-20] MEDS: ATORVASTATIN 40 MG TAB PO SCH (20:29)
[2018-11-20] MEDS: NIFEDIPINE CR 30 MG TAB PO SCH (20:29)
[2018-11-21] VITALS: BP 118/67
[2018-11-21] MEDS: MORPHINE SULFATE INJ 4 MG/ML INJ 1ML IV PRN ×4 (00:29→21:20)
[2018-11-21] MEDS: MORPHINE SULFATE 30 MG TAB ER PO SCH ×2 (03:47→18:00)
[2018-11-21 04:00] VITALS: BP 151/88
[2018-11-21] MEDS: MEROPENEM 500MG/ NS 50ML 50 ML IV SCH ×3 (05:55→21:18)
[2018-11-21] MEDS: VANCOMYCIN 1GM/NS 250 ML 250 ML IV SCH ×2 (06:30→18:00)
--- NOTE | 2018-11-21 07:05 | NUR ---
Received patient mid fowlers position, side rails upx2, call light within reach. AAOX3 to time, person, place. Respirations even and unlabored. Dressing to right foot clean, dry, and intact. Instructed patient to use call light for assistance. Voiced understanding.
[2018-11-21] MEDS ORDERED: HEPARIN SOD (PORCINE) 1000 UNIT/ML 30ML ONE ×2 (07:12→14:09)
[2018-11-21] MEDS ORDERED: LIDOCAINE HCL 2% LOCAL 20 ML VIAL ONE ×2 (07:12→15:05)
[2018-11-21] MEDS ORDERED: FENTANYL CITRATE/PF 100MCG/2 ML INJ ONE ×2 (07:12→16:45)
[2018-11-21] MEDS ORDERED: MIDAZOLAM HCL 2 MG/2 ML VIAL ONE ×3 (07:12→16:59)
[2018-11-21] MEDS ORDERED: IOPAMIDOL 300MG/ML 100 ML INFUS..BTL IV ONE (07:13)
[2018-11-21] MEDS ORDERED: NITROGLYCERIN/D5W 200 MCG/ML 250 ML ONE ×2 (07:13→14:10)
[2018-11-21] MEDS ORDERED: HEPARIN SOD/SOD CHLORIDE 2,000 ML ONE (07:13)
[2018-11-21] MEDS ORDERED: SODIUM CHLORIDE 0.9% 1000ML 1,000 ML ONE ×2 (07:13→15:32)
[2018-11-21] MEDS: INSULIN LISPRO 100 UNIT/1 ML 3ML VIAL SQ SCH ×4 (07:30→21:22)
[2018-11-21] MEDS: ONDANSETRON HCL INJ 2MG/ML 2ML 2 MG/ML VIAL IV PRN ×2 (07:58→21:20)
[2018-11-21 08:00] VITALS: BP 133/73
[2018-11-21 08:15] VITALS: BP 133/73
[2018-11-21] MEDS: ASPIRIN 81 MG CHEW TAB PO SCH (09:00)
[2018-11-21] MEDS: INSULIN GLARGINE 100 UNITS/ML VIAL SQ SCH (09:00)
--- NOTE | 2018-11-21 09:46 | NUR ---
EDUCATED ABOUT IMM, SIGNED, FILED IN CHART, WITH COPY LEFT WITH FAMILY AT BEDSIDE.
[2018-11-21] MEDS: METOPROLOL TARTRATE 50 MG TAB PO SCH ×2 (09:58→21:19)
[2018-11-21] MEDS: ESCITALOPRAM OXALATE 10 MG TAB PO SCH (09:58)
[2018-11-21] MEDS: FAMOTIDINE 20 MG TAB PO SCH ×2 (09:58→18:00)
[2018-11-21] MEDS: GABAPENTIN 300 MG CAP PO SCH ×3 (09:58→21:19)
[2018-11-21] MEDS: CYCLOBENZAPRINE HCL 10 MG TAB PO SCH ×3 (09:58→21:19)
[2018-11-21] MEDS: LISINOPRIL 10 MG TAB PO SCH (09:59)
[2018-11-21 11:58] VITALS: BP 145/91
[2018-11-21] MEDS: COLLAGENASE 5 GM TUBE TOP SCH (12:00)
--- NOTE | 2018-11-21 13:04 | NUR ---
Taken for procedure. No s/s of acute distress noted
[2018-11-21] MEDS ORDERED: SODIUM CHLORIDE 0.9% 250ML 250 ML ONE (15:20)
[2018-11-21] MEDS ORDERED: VERAPAMIL HCL 2.5 MG/ML 2 ML VIAL ONE (15:33)
--- NOTE | 2018-11-21 16:15 | NUR ---
ATTEMPTED 3 TIMES TO GET CHOICE FOR PT TO GO TO SNF, UNABLE DUE TO OUT OF ROOM FOR PROCEDURE.
[2018-11-21] MEDS ORDERED: CLOPIDOGREL BISULFATE 75 MG TAB ONE (16:56)
[2018-11-21] MEDS ORDERED: ASPIRIN 325 MG TAB ONE (16:56)
[2018-11-21] MEDS: ENOXAPARIN SOD INJ 40 MG/0.4 ML SYR SC SCH (17:00)
[2018-11-21] MEDS ORDERED: PROTAMINE SULFATE 10 MG/ML 5 ML VIAL ONE (17:17)
[2018-11-21] MEDS ORDERED: SODIUM CHLORIDE 0.9% 50ML 50 ML ONE (17:17)
--- NOTE | 2018-11-21 18:00 | NUR ---
Back in room from procedure. AAOX3 to time, person, place. Dressing to left groin clean, dry, and intact. Instructed patient to lay flat for 6 hours. Voiced understanding. Report to be given to oncoming nurse of patient's status. Wound care to be done by oncoming nurse.
--- NOTE | 2018-11-21 18:00 | NUR ---
Report provided to Bisi RANGEL, review of procedural findings and medications given. Patient awake and alert. maintains airway and room air saturations of 96-98%. No gross issues of pressure, pain, pallor or dysrhythmia. IV site patent with saline locked right brachial Picc. patient hemodynamically stable with hemostasis Left groin dressing CDI w/o s/s of bleeding. patient transferred to bed max assist w/o incident. Overall skin integrity remains intact. general skin and liz care provided due to residual hem. transported to [facility] by [facility] staff Procedure: Aortogram with bilateral runoff, right extremity Angioplasty PT and PT/AT trunk, Atherectomy of popliteal (CSI) Sheath puller: Dr Infante deploy Perclose to left femoral , failed, manual hold Don HUMAN RESOURCES RECRUITER x 20 min with Marlena patch Meds Given Intra-Procedure Sedatives Versed - 6 mg Fentanyl - 175 mcg Anticoagulants Heparin - 35105 Units Fluids Input - 350 Output - dtv Contrast Isovue 300 - 180ml Other Meds Plavix 600 mg Aspirin 325mg
--- NOTE | 2018-11-21 19:40 | NUR ---
patient received. patient is resting in bed, AAOx3. Resp even and unlabored. No acute distress noted. Patient denies of any pain or discomfort at this time. Left groin dressing noted, dry and intact, no sign of bleeding. instruct patient to lay fat until midnight. patient voices understanding. call light within reach. instruct to call for assistance. bed low/locked. continue to monitor closely
[2018-11-21 20:00] VITALS: BP 141/90
[2018-11-21] MEDS: ATORVASTATIN 40 MG TAB PO SCH (21:19)
[2018-11-21] MEDS: NIFEDIPINE CR 30 MG TAB PO SCH (21:20)
[2018-11-22] VITALS (7 sets, daily range): BP systolic 104–127; BP diastolic 53–66
--- NOTE | 2018-11-22 00:22 | NUR ---
completed dressing change to right heel. patient tolerated well
--- NOTE | 2018-11-22 00:49 | Progress Note ---
DATE: 11/21/2018 Cardiology Progress Note SUBJECTIVE: No major events overnight. OBJECTIVE: VITAL SIGNS: Temperature afebrile, pulse 86, respiratory rate 18, blood pressure 133/73, and saturating 96% on room air. GENERAL: Obese white man, in no acute distress. CARDIOVASCULAR: Regular rate and rhythm. No murmurs, rubs, or gallops. LUNGS: Clear to auscultation anteriorly. ABDOMEN: Very obese, soft, nontender, and nondistended. NEURO AND PSYCH: Alert and oriented to person, place, and time. Normal affect. CARDIOVASCULAR MEDICATIONS: Reviewed. LABORATORY DATA: Reviewed. TELEMETRY DATA: Reviewed. ASSESSMENT: 1. Right heel ulcer, cellulitis, and gangrene. 2. Peripheral arterial disease with critical limb ischemia. 3. Diabetes. 4. Coronary artery disease. 5. History of diastolic congestive heart failure. 6. Hypertension. 7. Hyperlipidemia. 8. Morbid obesity. RECOMMENDATIONS: Plan for peripheral angiography and intervention today. Wound care per Podiatry. Thank you for this consult. We will continue to follow. MD RYAN Rosenberg/CLARE /[id number]
[2018-11-22] MEDS: ONDANSETRON HCL INJ 2MG/ML 2ML 2 MG/ML VIAL IV PRN (02:14)
[2018-11-22] MEDS: MORPHINE SULFATE INJ 4 MG/ML INJ 1ML IV PRN ×5 (02:14→22:23)
[2018-11-22] MEDS: MORPHINE SULFATE 30 MG TAB ER PO SCH ×2 (04:25→16:00)
[2018-11-22] MEDS: MEROPENEM 500MG/ NS 50ML 50 ML IV SCH ×3 (05:00→21:39)
[2018-11-22] MEDS: VANCOMYCIN 1GM/NS 250 ML 250 ML IV SCH ×2 (05:27→17:13)
--- NOTE | 2018-11-22 06:57 | NUR ---
IM- progress note O/N; no events REVIEW OF SYSTEMS: Denies any fevers, chills, sweats, nausea, vomiting, diarrhea, headache, back pain, chest pain or vision change. PHYSICAL EXAM VITAL SIGNS: Reviewed. GENERAL: A tired-appearing man resting in bed. HEENT: Anicteric. CARDIOVASCULAR: Normal S1 and S2. LUNGS: He has moderate breath sounds. ABDOMEN: Soft, nontender, and nondistended. EXTREMITIES: TRACE EDEMA B/L LEGS; left foot 4th and 5th digits absent with well-healed scar. rIght foot heel with gangrenous changes AND MALODOROUS; right foot 5th digit--- SKIN: Dry. PSYCHIATRIC: Flat affect. NEUROLOGICAL: Alert, oriented x3. Moving all extremities. LABS: Reviewed. MEDICATIONS: Reviewed. ASSESSMENT AND PLAN: This is a 52-year-old man 1. Right heel gangrene 2.DFU 3.Uncontrolled DM2 4.Severe obesity, body mass index 46 5.CAD with hx stents 6.CHF- likely diastolic 7.HTN 8.HLD 9.Onychomycosis PLAN IV vanco/zosyn; Wound cx Consult ID COnsult podiatry Consult Cardiology Sed/CRP IV abx broad MRI lovenox; pepcid 11/16 f/u US studies. GNR in wound; Sed rate 48. Hba1c is 12. LDL 39. Vanco 9. Uptitrate lantus to 25. 11/17 control glucose; start premeal insulin; f/u cx; f/u sx plan; f/u vascular studies. 11/18 infrapopliteal peripheral vasc ds. 11/19 check labs; WOund infection with Citrobacter braakii and Alcaligenes faecalis. cont abx per ID, on vanco./merrem 11/20 check labs; 11/21 peripheral angiography pending today; control glucose; vanco therapeutic f/u results. adjust insulin. Law Vale MD, PhD.
[2018-11-22] MEDS: GABAPENTIN 300 MG CAP PO SCH ×3 (08:30→21:38)
[2018-11-22] MEDS: INSULIN LISPRO 100 UNIT/1 ML 3ML VIAL SQ SCH ×4 (08:30→21:45)
[2018-11-22] MEDS: ASPIRIN 81 MG CHEW TAB PO SCH (08:30)
[2018-11-22] MEDS: METOPROLOL TARTRATE 50 MG TAB PO SCH ×2 (08:30→21:38)
[2018-11-22] MEDS: INSULIN GLARGINE 100 UNITS/ML VIAL SQ SCH (08:30)
[2018-11-22] MEDS: CYCLOBENZAPRINE HCL 10 MG TAB PO SCH ×3 (08:30→21:38)
[2018-11-22] MEDS: FAMOTIDINE 20 MG TAB PO SCH ×2 (08:30→16:00)
[2018-11-22] MEDS: ESCITALOPRAM OXALATE 10 MG TAB PO SCH (08:30)
[2018-11-22] MEDS: LISINOPRIL 10 MG TAB PO SCH (08:31)
--- NOTE | 2018-11-22 09:34 | NUR ---
Dr.Cuza Ordonez aware of d/c planning and of rolly rutherford. States "I will see patient today"
--- NOTE | 2018-11-22 12:30 | NUR ---
Notified patient of weight bearing status to right lower extremity. Voiced understanding.
[2018-11-22] MEDS: COLLAGENASE 5 GM TUBE TOP SCH (12:31)
--- NOTE | 2018-11-22 16:11 | NUR ---
Nutrition Screen Note RD Recommendation for Physician: - Continue current diet as ordered Plan of Care: RD following, monitor adequacy and tolerance Nutrition reason for involvement: Follow up Primary Diagnose(s): infected R heel ulcer PMH: DM2, obesity, CAD, CHF, HTN, HLD Ht: 70 in Wt: 319 lb; 321lb BMI: 45.8 kg/m2 IBW: [address] Assessment: 11/22: Pt reported good appetite with 100% recorded meal intake. No GI complains noted. No chewing or swallowing difficulty reported. Will continue to monitor and follow. 11/16: 52 YOM admitted for infected R heel ulcer, gangrenous per MD notes, seen today for MST score of 2. Pt reports good appetite and po intake with difficulties chewing fresh fruits and vegetables due not having any teeth, does not have dentures, and denies difficulties swallowing. Pt denies any GI distress. Pt denies any wt loss, reports UBW of 310#. Pt appropriate for education, however would like and niece present since they cook for the pt. Labs and meds reviewed. Will monitor and continue to follow. Current Diet: 1800 ADA/ cardiac Malnutrition Evaluation (11/16/18) The patient does not meet criteria for a specified degree of malnutrition at this time. Will re-evaluate at follow-up as appropriate. Diet Education Needs Assessment: Diet education not indicated. Nutrition Care Level: Low Signed: Marilynn Staley, MS, RD, LD
[2018-11-22] MEDS: ENOXAPARIN SOD INJ 40 MG/0.4 ML SYR SC SCH (16:30)
--- NOTE | 2018-11-22 19:10 | NUR ---
Report given to oncoming nurse of patient's status. Resting in bed. No s/s of acute distress noted. Dressing to Right foot clean, dry, and intact.
--- NOTE | 2018-11-22 19:19 | Progress Note ---
DATE: 11/22/2018 Cardiology Progress Note SUBJECTIVE: Had SERVICE DELIVERY CONSULTANT to his right lower extremity yesterday, doing well since then. No complaints. OBJECTIVE: VITAL SIGNS: Temperature afebrile, pulse 71, respiratory rate 20, blood pressure 109/63, saturating 95% on room air. GENERAL: Obese white man, in no acute distress. CARDIOVASCULAR: Regular rate and rhythm. No murmurs, rubs, or gallops. LUNGS: Clear to auscultation bilaterally. ABDOMEN: Soft, nontender, and nondistended. NEURO AND PSYCH: Alert and oriented to person, place, and time. Normal affect. INPATIENT MEDICATIONS: Reviewed. LABORATORY DATA: Reviewed. TELEMETRY DATA: Reviewed, shows normal sinus rhythm. ASSESSMENT: 1. Peripheral arterial disease with critical limb ischemia. 2. Right heel ulcer, cellulitis, and gangrene. 3. Diabetes. 4. Coronary artery disease. 5. History of diastolic congestive heart failure. 6. Hypertension. 7. Hyperlipidemia. 8. Morbid obesity. RECOMMENDATIONS: Had revascularization of his right lower extremity performed yesterday. Continue aspirin and Plavix post SERVICE DELIVERY CONSULTANT for three months followed by aspirin daily. Continue other cardiovascular medications otherwise. Wound care per primary team and Podiatry. Thank you for this consult. We will continue to follow. MD RYAN Rosenberg/CLARE /[id number]
--- NOTE | 2018-11-22 19:40 | NUR ---
patient received. patient is resting in bed, AAOx3. Resp even and unlabored. No acute distress noted. Patient denies of any pain or discomfort at this time. call light within reach. instruct to call for assistance. bed low/locked. continue to monitor closely
[2018-11-22] MEDS: ATORVASTATIN 40 MG TAB PO SCH (21:37)
[2018-11-22] MEDS: NIFEDIPINE CR 30 MG TAB PO SCH (21:38)
[2018-11-23] VITALS (9 sets, daily range): BP systolic 124–167; BP diastolic 58–85
[2018-11-23] MEDS: MORPHINE SULFATE INJ 4 MG/ML INJ 1ML IV PRN ×5 (02:45→20:15)
[2018-11-23] MEDS: MEROPENEM 500MG/ NS 50ML 50 ML IV SCH ×3 (05:15→21:13)
[2018-11-23] MEDS: VANCOMYCIN 1GM/NS 250 ML 250 ML IV SCH ×2 (05:37→17:17)
--- NOTE | 2018-11-23 07:15 | NUR ---
RCD PT AT BED PT IS ALERT AND ORIENTED PT RESTING ON BED IV PATENT FAMILY AT BED SIDE BED LOW AND LOCKED CALL LIGHT IN REACH
[2018-11-23] MEDS: INSULIN LISPRO 100 UNIT/1 ML 3ML VIAL SQ SCH ×5 (07:30→20:23)
[2018-11-23] MEDS: FAMOTIDINE 20 MG TAB PO SCH ×2 (07:30→16:26)
[2018-11-23] MEDS: ESCITALOPRAM OXALATE 10 MG TAB PO SCH (09:00)
[2018-11-23] MEDS: INSULIN GLARGINE 100 UNITS/ML VIAL SQ SCH (09:00)
[2018-11-23] MEDS: CLOPIDOGREL BISULFATE 75 MG TAB PO SCH (09:00)
[2018-11-23] MEDS: ASPIRIN 81 MG CHEW TAB PO SCH (09:00)
[2018-11-23] MEDS: METOPROLOL TARTRATE 50 MG TAB PO SCH ×2 (09:00→20:34)
[2018-11-23] MEDS: CYCLOBENZAPRINE HCL 10 MG TAB PO SCH ×3 (09:00→20:22)
[2018-11-23] MEDS: GABAPENTIN 300 MG CAP PO SCH ×3 (09:00→20:23)
[2018-11-23] MEDS: LISINOPRIL 10 MG TAB PO SCH (09:00)
--- NOTE | 2018-11-23 09:30 | NUR ---
CM SPOKE TO PATIENT AT BEDSIDE REGARDING IMM LETTER. IMM LETTER GIVEN WITH EXPLANATION BASED ON ANTICIPATED DISCHARGE DATE. ORIGINAL SIGNED AND PLACED IN CHART; COPY OF ORIGINAL DOCUMENT GIVEN TO PATIENT AT BEDSIDE AND PLACED IN CARE TRANSITION FOLDER. CM CONTACT INFORMATION GIVEN TO PATIENT FOR ANY NEEDS OR CONCERNS. PATIENT WITH NO FURTHER QUESTIONS.
[2018-11-23] MEDS: COLLAGENASE 5 GM TUBE TOP SCH (12:00)
--- NOTE | 2018-11-23 15:35 | Progress Note ---
DATE: 11/23/2018 Cardiology Progress Note SUBJECTIVE: No major events overnight. OBJECTIVE: VITAL SIGNS: Temperature afebrile, pulse 85, respiratory rate 19, blood pressure 132/80, saturating 95% on room air. GENERAL: Obese white man, no acute distress. CARDIOVASCULAR: Regular rate and rhythm. No murmurs, rubs, or gallops. LUNGS: Clear to auscultation bilaterally. ABDOMEN: Soft, nontender, nondistended. NEURO AND PSYCH: Alert and oriented to person, place, and time. Normal affect. INPATIENT MEDICATIONS: Reviewed. LABORATORY DATA: Reviewed. TELEMETRY DATA: Reviewed. ASSESSMENT: 1. Peripheral arterial disease with critical limb ischemia. 2. Right heel ulcer and cellulitis with gangrene. 3. Diabetes. 4. Coronary artery disease. 5. History of diastolic congestive heart failure. 6. Hypertension. 7. Hyperlipidemia. 8. Morbid obesity. RECOMMENDATIONS: Right lower extremity is fully revascularized at this point. Continue aspirin and Plavix. Continue other cardiovascular medications. We will need a staged intervention to left lower extremity, which can be arranged for as an outpatient. Thank you for this consult. We will continue to follow. MD RYAN Rosenberg/CLARE /[id number]
--- NOTE | 2018-11-23 16:00 | NUR ---
DRESSING CHANGED ON RT FOOT
[2018-11-23] MEDS ORDERED: SODIUM CHLORIDE 0.9% 250ML 250 ML ONE (17:41)
--- NOTE | 2018-11-23 18:40 | NUR ---
PT RESTING ON BED BED SIDE REPORT GIVEN TO ONCOMING NURSE
[2018-11-23 18:54] LABS: BASOPHILS % 0.6 % (0.0-1.0); EOSINOPHILS # (AUTO) 0.3 (0.0-0.4); EOSINOPHILS % 3.6 % (0.0-6.0); HEMATOCRIT 30.5 % (38.2-49.6); HEMOGLOBIN 9.3 g/dL (14.0-18.0); LYMPHOCYTES # (AUTO) 1.9 (1.0-3.2); LYMPHOCYTES % 27.2 % (18.0-39.1); MEAN CORPUSCULAR HEMOGLOBIN 25.7 pg (28-32); MEAN CORPUSCULAR HGB CONC 30.5 g/dL (31-35); MEAN CORPUSCULAR VOLUME 84.3 fL (81-99); MONOCYTES # (AUTO) 0.5 (0.2-0.8); MONOCYTES % 7.1 % (4.4-11.3); NEUTROPHILS # (AUTO) 4.2 (2.1-6.9); NEUTROPHILS % 61.1 % (38.7-80.0); PLATELET COUNT 316 x10e3/uL (140-360); RED BLOOD COUNT 3.62 x10e6/uL (4.3-5.7); RED CELL DISTRIBUTION WIDTH 14.7 % (11.7-14.4)
[2018-11-23 19:16] LABS: ANION GAP 10.3 mmol/L (8-16); BLOOD UREA NITROGEN 9 mg/dL (7-26); BUN/CREATININE RATIO 13 (6-25); CALCIUM 8.6 mg/dL (8.4-10.2); CARBON DIOXIDE 31 mmol/L (22-29); CHLORIDE 99 mmol/L (98-107); EST GLOMERULAR FILTRATION RATE > 60 ML/MIN (60-); GLUCOSE 144 mg/dL (74-118); POTASSIUM 4.3 mmol/L (3.5-5.1); SODIUM 136 mmol/L (136-145)
[2018-11-23] MEDS: ATORVASTATIN 40 MG TAB PO SCH (20:22)
[2018-11-23] MEDS: NIFEDIPINE CR 30 MG TAB PO SCH (20:23)
[2018-11-24] MEDS: MORPHINE SULFATE INJ 4 MG/ML INJ 1ML IV PRN ×4 (00:46→15:45)
[2018-11-24] MEDS: ONDANSETRON HCL INJ 2MG/ML 2ML 2 MG/ML VIAL IV PRN ×2 (00:46→05:25)
[2018-11-24 00:57] VITALS: BP 192/21
[2018-11-24] MEDS: MEROPENEM 500MG/ NS 50ML 50 ML IV SCH ×2 (05:24→14:00)
[2018-11-24 06:12] VITALS: BP 141/65
[2018-11-24] MEDS: VANCOMYCIN 1GM/NS 250 ML 250 ML IV SCH ×2 (06:20→17:01)
[2018-11-24] MEDS ORDERED: ONDANSETRON HCL 4 MG ORAL DISINTEGRATING TAB PO PRN (06:45)
--- NOTE | 2018-11-24 06:57 | NUR ---
IM- progress note O/N; no events REVIEW OF SYSTEMS: Denies any fevers, chills, sweats, nausea, vomiting, diarrhea, headache, back pain, chest pain or vision change. PHYSICAL EXAM VITAL SIGNS: Reviewed. GENERAL: A tired-appearing man resting in bed. HEENT: Anicteric. CARDIOVASCULAR: Normal S1 and S2. LUNGS: He has moderate breath sounds. ABDOMEN: Soft, nontender, and nondistended. EXTREMITIES: TRACE EDEMA B/L LEGS; left foot 4th and 5th digits absent with well-healed scar. rIght foot heel with gangrenous changes AND MALODOROUS; right foot 5th digit--- SKIN: Dry. PSYCHIATRIC: Flat affect. NEUROLOGICAL: Alert, oriented x3. Moving all extremities. LABS: Reviewed. MEDICATIONS: Reviewed. ASSESSMENT AND PLAN: This is a 52-year-old man 1. Right heel gangrene 2.DFU 3.Uncontrolled DM2 4.Severe obesity, body mass index 46 5.CAD with hx stents 6.CHF- likely diastolic 7.HTN 8.HLD 9.Onychomycosis PLAN IV vanco/zosyn; Wound cx Consult ID COnsult podiatry Consult Cardiology Sed/CRP IV abx broad MRI lovenox; pepcid 11/16 f/u US studies. GNR in wound; Sed rate 48. Hba1c is 12. LDL 39. Vanco 9. Uptitrate lantus to 25. 11/17 control glucose; start premeal insulin; f/u cx; f/u sx plan; f/u vascular studies. 11/18 infrapopliteal peripheral vasc ds. 11/19 check labs; WOund infection with Citrobacter braakii and Alcaligenes faecalis. cont abx per ID, on vanco./merrem 11/20 check labs; 11/21 peripheral angiography pending today; control glucose; vanco therapeutic 11/22 f/u results. adjust insulin. 11/23 doing ok; check labs; d/c planning; 11/24 cont care; Debridement pending; Law Vale MD, PhD.
[2018-11-24] MEDS: FAMOTIDINE 20 MG TAB PO SCH ×2 (07:30→16:15)
[2018-11-24] MEDS: INSULIN LISPRO 100 UNIT/1 ML 3ML VIAL SQ SCH ×3 (07:30→16:26)
[2018-11-24] MEDS: ASPIRIN 81 MG CHEW TAB PO SCH (08:55)
[2018-11-24] MEDS: CYCLOBENZAPRINE HCL 10 MG TAB PO SCH ×2 (08:56→15:00)
[2018-11-24] MEDS: ESCITALOPRAM OXALATE 10 MG TAB PO SCH (08:56)
[2018-11-24] MEDS: GABAPENTIN 300 MG CAP PO SCH ×2 (08:56→15:00)
[2018-11-24] MEDS: CLOPIDOGREL BISULFATE 75 MG TAB PO SCH (08:56)
[2018-11-24] MEDS: LISINOPRIL 10 MG TAB PO SCH (08:56)
[2018-11-24] MEDS: METOPROLOL TARTRATE 50 MG TAB PO SCH (08:56)
[2018-11-24] MEDS: INSULIN GLARGINE 100 UNITS/ML VIAL SQ SCH (08:58)
[2018-11-24 09:00] VITALS: BP 135/63
[2018-11-24 09:01] VITALS: BP 135/63
--- NOTE | 2018-11-24 09:12 | NUR ---
ROBLES SPOKE TO BOB HILL REGARDING RETURN TO SNF ORDER. PATIENT IS PENDING APPROVAL FOR PLACEMENT AT [facility]. TODAY IS DAY 3 OF AUTHORIZATION SO WE SHOULD BE RECEIVING AUTH FROM INSURANCE SOON. PATIENT TO BE TRANSFERRED TO: [facility] Address: [address], [place] [address]
[2018-11-24] MEDS: COLLAGENASE 5 GM TUBE TOP SCH (12:00)
[2018-11-24 12:28] VITALS: BP 118/66
--- NOTE | 2018-11-24 13:48 | NUR ---
BED SIDE DEBRIDEMENT DONE ON RIGHT HEEL
--- NOTE | 2018-11-24 15:00 | NUR ---
CHANGED PICC LINE DRESSING
[2018-11-24 17:01] VITALS: BP 167/73
--- NOTE | 2018-11-24 17:30 | NUR ---
PAGED AND NOTIFIED DR HARLEY PT IS APPROVED BY THE [facility] GOT THE DISCHARGE ORDER AND CONTINUE ALL MEDICATIONS
--- NOTE | 2018-11-24 17:45 | NUR ---
REPORT GIVEN TO ELIZABETH DIEGO RN
--- NOTE | 2018-11-24 18:40 | NUR ---
PT RESTING ON BED BED SIDE REPORT GIVEN TO ONCOMING NURSE
--- NOTE | 2018-11-24 19:32 | Progress Note ---
DATE: 11/24/2018 Cardiology Progress Note SUBJECTIVE: No major events overnight. OBJECTIVE: VITAL SIGNS: Temperature 98.1, pulse 70, respiratory rate 20, blood pressure 118/66, saturating 96% on room air. GENERAL: Obese white man, in no acute distress. CARDIOVASCULAR: Regular rate and rhythm. No murmurs, rubs, or gallops. LUNGS: Clear to auscultation anteriorly. ABDOMEN: Obese, soft, nontender, nondistended. NEURO AND PSYCH: Alert and oriented to person, place, and time. Normal affect. INPATIENT MEDICATIONS: Reviewed. LABORATORY DATA: Reviewed. TELEMETRY DATA: Reviewed, shows normal sinus rhythm. ASSESSMENT: 1. Peripheral arterial disease with critical limb ischemia. 2. Right heel ulcer and cellulitis with gangrene. 3. Diabetes. 4. Coronary artery disease. 5. History of diastolic congestive heart failure. 6. Hypertension. 7. Hyperlipidemia. 8. Morbid obesity. RECOMMENDATIONS: Had RENTAL SALES ASSOCIATE to his posterior tibial, anterior tibial, and popliteal arteries performed by me earlier this admission, doing well since the procedure. Right lower extremity is completely revascularized at this point, has residual disease of left lower extremity, which will need to be revascularized in the future, which can be scheduled as an outpatient as needed. The patient is okay to be discharged for now from cardiovascular standpoint. Follow up in clinic 2 weeks post discharge. Thank you for this consult. We will continue to follow. MD RYAN Rosenberg/CLARE /[id number]
--- NOTE | 2018-11-24 20:08 | Operative Report ---
DATE OF PROCEDURE: 11/24/2018 SURGEON: José Luis Ernandez DPM PREOPERATIVE DIAGNOSIS: Diabetic ulceration, Pelaez grade 3, right foot. POSTOPERATIVE DIAGNOSIS: Diabetic ulceration, Pelaez grade 3, right foot, confirmed. PROCEDURE: Sharp excision and debridement through the subcutaneous tissues and deep fascia, right foot. MAGNETIC LOCATER: None. HEMOSTASIS: Local. ANESTHESIA: Local. PATHOLOGY: None. INDICATIONS FOR PROCEDURE: Mr. Madera is a pleasant male, admitted secondary to right heel infection. He is in need for wound debridement and at this point, he was educated on the same. He is willing and able to proceed and this was performed at the bedside. DESCRIPTION OF PROCEDURE: The right heel was prepped locally and then utilizing a #7 blade and pickups, sharp excisional debridement was performed through the subcutaneous tissues and deep fascia removing both nonviable and some of the viable tissue to augment wound healing hemostasis subsequently achieved. Dressing was then applied consisting of Santyl wet-to-dry. The patient tolerated the procedure well, particularly secondary to underlying neuropathy. José Luis Ernandez DPM FJC/MODL /[id number]
--- NOTE | 2018-11-28 17:13 | NUR ---
DIscharge summary ASSESSMENT AND PLAN: This is a 52-year-old man 1. Right heel gangrene 2.DFU 3.Uncontrolled DM2 4.Severe obesity, body mass index 46 5.CAD with hx stents 6.CHF- likely diastolic 7.HTN 8.HLD 9.Onychomycosis PLAN IV vanco/zosyn; Wound cx Consult ID COnsult podiatry Consult Cardiology Sed/CRP IV abx broad MRI lovenox; pepcid 11/16 f/u US studies. GNR in wound; Sed rate 48. Hba1c is 12. LDL 39. Vanco 9. Uptitrate lantus to 25. 11/17 control glucose; start premeal insulin; f/u cx; f/u sx plan; f/u vascular studies. 11/18 infrapopliteal peripheral vasc ds. 11/19 check labs; WOund infection with Citrobacter braakii and Alcaligenes faecalis. cont abx per ID, on vanco./merrem 11/20 check labs; 11/21 peripheral angiography pending today; control glucose; vanco therapeutic 11/22 f/u results. adjust insulin. 11/23 doing ok; check labs; d/c planning; 11/24 cont care; Debridement pending; d/c SNF f/u PCP 1 week and podiatry 2 weeks stable d/c>35mins Law Vale MD, PhD.
--- NOTE | 2019-02-06 20:01 | Operative Report ---
DATE OF PROCEDURE: 11/21/2018 SURGEON: Evens Infante MD INDICATION FOR PROCEDURE: Critical limb ischemia. PREPROCEDURE ASSESSMENT: The risks, benefits, and alternatives to the treatment were explained to the patient prior to the procedure, and informed consent was obtained as documented in the medical record. The patient's medical history, social history, and prior experience with anesthesia was reviewed prior to the procedure and the patient was deemed to be an appropriate candidate for moderate sedation. MEDICATIONS: Please see nursing notes for medications administered during the procedure. PROCEDURES PERFORMED: 1. Abdominal aortography. 2. Catheter placement, abdominal aorta. 3. Catheter placement, third order. 4. Bilateral lower extremity angiography. 5. Femoral-popliteal arthrectomy, single-vessel. 6. Tibioperoneal QUALITY PROCESS LEAD, one vessel. 7. Tibioperoneal QUALITY PROCESS LEAD, additional vessel. 8. Secondary thrombectomy. PROCEDURE DETAILS: The patient was brought to the cardiac catheterization laboratory in a fasting state. Left groin was prepped and draped in a sterile fashion. Access to the left common femoral artery was obtained using ultrasound and fluoroscopic guidance using micropuncture technique. A 6-Andorran short sheath was inserted in the left common femoral artery. Abdominal aortography was performed using a 5-Andorran Omni Flush catheter. The contralateral common iliac artery was wired through the Omni Flush catheter using a Magnolia Advantage wire. The Omni Flush was then advanced into the right common femoral artery. Wire was removed and multiple angiographic images of the right lower extremity arteries were taken using digital subtraction imaging. This demonstrated severe 70% to 80% calcified lesion of the right popliteal artery and 80% lesion of the ostial right anterior tibial artery and 100% WEDDING DECORATOR occlusion of the right posterior tibial artery. We decided to proceed with intervention to the above stated lesions. The Omni Flush catheter was removed over Magnolia Advantage wire and the short 6-Andorran sheath was exchanged for 60 cm Destination sheath 6-Andorran. IV boluses of heparin were given throughout the procedure to maintain ACT near 300. After this point, dual antiplatelet therapy was administered as indicated. For peripheral intervention of the right lower extremity, first we wired the WEDDING DECORATOR of the posterior tibial artery using a long 0.014 inch Whisper wire and a CXI support catheter. However, given the flush occlusion of the posterior tibial artery, we were unable to wire the lesion antegrade. There was a large distal collateral from the posterior communicating artery through the peroneal artery, so we decided to advance the Whisper wire and a CXI support catheter into the posterior communicating artery through the collateral and in a retrograde fashion up the posterior tibial artery. We were able to wire the posterior tibial artery in a retrograde fashion in this manner and externalize the Whisper wire. We then decided to balloon the WEDDING DECORATOR of the posterior tibial artery with 2.0 x 220 mm Ultraverse balloon. We then wired the posterior tibial artery, which was now patent in antegrade fashion with a Seeker support catheter and a Grand Slam wire, Whisper wire, which was externalized was then removed. We decided to proceed with QUALITY PROCESS LEAD of the posterior tibial artery with a 3.0 x 220 mm Ultraverse balloon inflated at 8 atmospheres for 3 minutes in overlapping fashion. This resulted in excellent angiographic result. We then pulled back the Grand Slam and wired the anterior tibial artery with a 4.0 x 40 mm Ultraverse balloon, deployed at 8 atmospheres for 3 minutes. This resulted in excellent angiographic result without any residual thrombus, dissection, or spasm of the anterior tibial artery. We then proceeded with intervention to the right popliteal artery. The Grand Slam wire was then exchanged for Wiper wire over a support catheter and then we proceeded to perform arthrectomy of the right popliteal artery using a Diamondback 2.0 x 145 classic bur in low-medium and high fashion. After the arthrectomy, there was noted some local thrombus at the site of the previous lesion. We decided to perform a secondary thrombectomy through the 90 cm Destination sheath. This resulted in clearing of the thrombus and we decided to proceed with drug-coated ballooning. A 5 x 100 Lutonix balloon was deployed in the popliteal artery at 7 atmospheres for 3 minutes. This resulted in excellent angiographic result with no significant dissection, thrombus, or spasm. A final angiogram and runoff of the right lower extremity showed brisk 3-vessel flow to the right lower extremity. We then pulled back the Destination sheath over Magnolia Advantage wire into the left common iliac and then exchanged it over the same Magnolia Advantage wire for a short 10 cm 6-Andorran sheath. Final angiogram with runoff of the left lower extremity was performed through the sheath, which showed no significant disease of the left iliac, common femoral, SFA, or popliteal vessels. The below-knee vessels were not well visualized due to technical error in panning. We elected not to give further contrast for better visualization of these vessels given contrast the patient already received. Access site was closed using ProGlide vascular closure device. The patient tolerated the procedure well. There were no immediate complications. FINDINGS: Severe right lower extremity peripheral arterial disease of the popliteal, anterior tibial, and posterior tibial arteries as described above. Successful peripheral intervention to the above lesions with good 3-vessel runoff at the end of the procedure. ESTIMATED BLOOD LOSS: 20 mL. GRAFTS AND IMPLANTS: None. SPECIMEN REMOVED: None. COMPLICATIONS: None. FINAL RECOMMENDATIONS: 1. Continue dual antiplatelet therapy with aspirin and Plavix for at least 3 months followed by aspirin daily for life. 2. Follow up in clinic 2 weeks post procedure. 3. We will need a staged intervention of the left lower extremity based on previous ultrasound findings. MD RYAN Rosenberg/CLARE /[id number]
== END 2018-11-24 20:10 | DRG 271 ==
LOC: ER 16:13 → ERHOLD 20:16 → IMCU 20:34 → MED/SURG2 11-16 11:31
PROVIDERS: ADMIT Internal Medicine; ATTEND Internal Medicine
PROC: 04CM3ZZ Extirpation of Matter from Right Popliteal Artery, Percutaneous Approach (ICD-10-PCS; 2018-11-21)
PROC: 047R3Z1 Dilation of Right Posterior Tibial Artery using Drug-Coated Balloon, Percutaneous Approach (ICD-10-PCS; 2018-11-21)
PROC: B41D1ZZ Fluoroscopy of Aorta and Bilateral Lower Extremity Arteries using Low Osmolar Contrast (ICD-10-PCS; 2018-11-21)
PROC: 047T3Z1 Dilation of Right Peroneal Artery using Drug-Coated Balloon, Percutaneous Approach (ICD-10-PCS; 2018-11-21)
PROC: 047P3Z1 Dilation of Right Anterior Tibial Artery using Drug-Coated Balloon, Percutaneous Approach (ICD-10-PCS; 2018-11-21)
PROC: 047M3Z1 Dilation of Right Popliteal Artery using Drug-Coated Balloon, Percutaneous Approach (ICD-10-PCS; 2018-11-21)
PROC: B41D1ZZ Fluoroscopy of Aorta and Bilateral Lower Extremity Arteries using Low Osmolar Contrast (ICD-10-PCS; 2018-11-21)
PROC: 0JBQ0ZZ Excision of Right Foot Subcutaneous Tissue and Fascia, Open Approach (ICD-10-PCS; principal; 2018-11-24)
DX: E11.52 Type 2 diabetes mellitus with diabetic peripheral angiopathy with gangrene (principal); L97.419 Non-pressure chronic ulcer of right heel and midfoot with unspecified severity; I96 Gangrene, not elsewhere classified; Z68.42 Body mass index [BMI] 45.0-49.9, adult; I50.30 Unspecified diastolic (congestive) heart failure; M86.8X7 Other osteomyelitis, ankle and foot; I47.2 Ventricular tachycardia; E11.621 Type 2 diabetes mellitus with foot ulcer; E11.65 Type 2 diabetes mellitus with hyperglycemia; I25.10 Atherosclerotic heart disease of native coronary artery without angina pectoris; I11.0 Hypertensive heart disease with heart failure; E66.01 Morbid (severe) obesity due to excess calories; I89.0 Lymphedema, not elsewhere classified; Z95.5 Presence of coronary angioplasty implant and graft; E11.69 Type 2 diabetes mellitus with other specified complication; Z79.4 Long term (current) use of insulin; B35.1 Tinea unguium; B96.89 Other specified bacterial agents as the cause of diseases classified elsewhere; E87.6 Hypokalemia
CPT/HCPCS: 36247; 36415; 36569; 36600; 37225; 37228; 37232; 71045; 75625; 75635; 75716; 80048; 80053; 80061; 80202; 82805; 82948; 83036; 83605; 85025; 85651; 86140; 87040; 87071; 87186; 87205; 93925; 96372; 97139; 99284; C1724; C1725; C1769; C1887; J1644; J1650; J1815; J2001; J2185; J2250; J2270; J2405; J2720; J3370; J7030; J7050; Q9967

== ENCOUNTER 2019-03-26 12:24 | Emergency (ER) | payer MEDICARE ==
[~2019-03-26] VITALS: Ht 177.8 cm; Wt 145.6 kg
--- OUTSIDE RECORDS SUMMARY | 2019-03-26 12:26 | XMS REPORT | Clinical Summary ---
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 Role Phone Gurinder Capps DO PCP [...] Dx); Sepsis, due to unspecified organism 03/22/2018 [facility] General Internal Medicine - Encounter 03/26/2018 after 03/25/2018 Family History Medical History Relation Name Comments [...] Saturation 99% - Inhaled Oxygen - Concentration - Weight - - Height - - Body Mass Index - Plan of Treatment Health Maintenance Due Date Last Done Comments COLONOSCOPY SCREENING 2014 SHINGLES VACCINES (#1) 2014 INFLUENZA VACCINE 03/30/2019 Procedures Comments Procedure Name Priority Date/Time Associated [...] MMODE SPECTRAL 11:19 AM CDT COLOR DOPPLER (51942) POC GLUCOSE Routine 03/25/2018 11:14 AM CDT POC GLUCOSE Routine 03/25/2018 7:07 AM CDT after 03/25/2018 Results * POC glucose (03/26/2018 4:39 PM CDT) Only the most recent of 7 results within the time period is included. [facility] POC glucose 139 (H) 65 - 100 mg/dL [facility] DEPARTMENT Comment: OF PATHOLOGY Meter ID: [id number] AND GENOMIC Varnishing Machine Operator: Thania Sims [facility] Specimen Performing Organization Address City/State/Zipcode Phone Number [facility] DEPARTMENT OF [address] [place] [address] PATHOLOGY AND GENOMIC MEDICINE * Estimated GFR (03/26/2018 11:51 AM CDT) [facility] GFR Non Af Amer >90 mL/min/1.73 m2 [facility] DEPART[facility] OF PATHOLOGY AND GENOMIC MEDICINE GFR Af Amer >90 mL/min/1.73 m2 [facility] DEPART[facility] Comment: OF PATHOLOGY Chronic kidney disease: <60 AND GENOMIC mL/min/1.73m2 MEDICINE Kidney failure: <15 mL/min/1.73m2 The estimated GFR [...] Americans. Specimen Plasma specimen Performing Organization Address City/[facility] Phone Number [place] [address] [place] [address] PATHOLOGY AND [facility] * Basic metabolic panel (03/26/2018 11:51 AM CDT) [facility] Sodium 140 135 - 150 mEq/L [facility] DEPARTMENT OF PATHOLOGY AND [employer] MEDICINE Potassium 3.8 3.5 - 5.0 mEq/L [facility] DEPARTMENT OF PATHOLOGY AND [employer] MEDICINE Chloride 100 98 - 112 mEq/L [facility] OF PATHOLOGY AND GENOMIC MEDICINE CO2 31 24 - 31 mmol/L [facility] PATHOLOGY AND [employer] MEDICINE Anion gap 9@ANIO 7 - 15 mEq/L [facility] DEPARTMENT OF PATHOLOGY AND [employer] MEDICINE BUN 9 7 - 18 mg/dL [facility] DEPARTMENT OF PATHOLOGY AND [employer] MEDICINE Creatinine 0.60 (L) 0.70 - 1.20 mg/dL [facility] DEPARTMENT OF PATHOLOGY AND [employer] MEDICINE Glucose 214 (H) 65 - 100 mg/dL [facility] DEPARTMENT OF PATHOLOGY AND [employer] MEDICINE Calcium 8.6 8.3 - 10.2 mg/dL [facility] OF PATHOLOGY AND [employer] MEDICINE Specimen Plasma specimen Performing Organization Address [facility] Cent[facility]ode Phone Number [address] [place] [address] PATHOLOGY AND [employer] [facility] * Vancomycin level, trough (03/25/2018 12:12 PM CDT) [facility] Vancomycin, 15.3 10.0 - 20.0 ug/mL [facility] DEPARTMENT trough Comment: OF PATHOLOGY Therapeutic Ranges: AND GENOMIC Peak30.0 MEDICINE - 40.0 ug/mL Bzbenn42.0 - 20.0 ug/mL Specimen Blood Performing Organization Address City/[facility]/Zipcode Phone Number [address] [place] [address] PATHOLOGY [facility] [employer] [facility] * Echocardiogram complete w contrast and 3D if needed (03/25/2018 11:19 AM CDT) [facility] Ao Root 2.94 cm [facility] Diameter AoV Area, Vmax 2.56 cm2 [facility] [...] grad 26.64 mmHg [facility] E wave 162.21 msec [facility] decelartion time MV Peak A Evan 0.76 m/s [facility] MV valve area p 4.68 cm2 [facility] 1/2 method MV Peak E Evan 1.02 m/s [facility] MV stenosis 47.04 ms [facility] pressure 1/2 time AV LVOT peak 2.83 mmHg [facility] gradient Ao Root 2.94 cm [facility] Diameter MV mean 1.48 mmHg [facility] gradient LV SYS VOL 44.13 ml [facility] LV COLLINS VOL 110.90 ml [facility] LV SV Teich 2D 66.78 ml [facility] LV Vol s Teich 44.13 ml [facility] PSAX LVOT CO 4.02 l/min [facility] LVOT HR for 77.28 bpm [facility] LVOT CO MR peak grad 3.48 mmHg [facility] [...] 166.68 bpm [facility] IVS pct thck 23.48 % [facility] PLAX LV SV Cube 2D 79.16 ml [facility] LV vol d cube 115.09 ml [facility] 2D LV vol s cube 35.93 ml [facility] 2D LVPW pct thck 36.29 % [facility] PLAX LVPW s PLAX 1.26 cm [facility] MV Decel slope 6.26 m/s2 [facility] Pred Exer Dur 9.73 [facility] R1 Pred METS R1 10.00 [facility] Velocity Ratio 0.88 m/s [facility] (V1/V2) EF 60.21 % [facility] E/A ratio 1.34 [facility] Specimen Narrative Performed At [facility] The left ventricle chamber size is normal. There is mild left ventricular Left Ventricular ejection fraction is 50 - 55%. Left atrium size is mildly dilated. No pericardial effusion Spectral Doppler shows pseudonormal pattern of left ventricular diastolic filling. Performing Organization Address City/State/[facility] Phone Number [facility] [address] [place] [address] after 03/25/2018 Insurance Type Payer Benefit Subscriber ID Effective Phone Address Plan / Dates Group HMO [employer] CIGNA xxxxxxxxxxx [id number] HEALTHSPRI resent HMO MCR ADV Advance Directives Patient has advance care planning documents on file. For more information, pleas e contact: Farooq Martin [address] [place] [address]
[2019-03-26] MEDS ORDERED: ALBUTEROL SULF 0.083% NEB SOLN 3 ML NEB NEB ONE (12:40)
[2019-03-26] MEDS ORDERED: SODIUM CHLORIDE 0.9% 1000ML 1,000 ML IV STA (12:40)
--- NOTE | 2019-03-26 12:40 | NUR ---
REC'D PT IN RM 3 FROM TRIAGE FOR SHORTNESS OF BREATH. PLACED ON THE MONITOR AND IN A GOWN. BED LOW/LOCKED AND CALL GALVAN AT SIDE. ABLE TO MAKE NEEDS KNOWN. SPOUSE AT SIDE. WAS GETTING READY TO START IV AND PT STATED, "I CAN'T BREATH I NEED TO SIT ON THE EDGE OF THE BED.".UNABLE TO OBTAIN IV ACCESS. GLOBAL LEAD INFORMED.
--- NOTE | 2019-03-26 13:33 | Diagnostic Imaging Report ---
EXAMINATION: PA and lateral views of the chest. COMPARISON: AP chest 11/18/2018 CLINICAL HISTORY: Shortness of breath, cough and congestion, and yellow phlegm for one week DISCUSSION: Lines/tubes: None. Lungs: The lungs are well inflated and grossly clear. There is no evidence of pneumonia or pulmonary edema. Pleura: There is no pleural effusion or pneumothorax. Heart and mediastinum: Cardiac silhouette is borderline to mildly enlarged. Pulmonary vasculature is normal. Bones and soft tissues: No acute bony abnormalities. Age-appropriate degenerative changes in the thoracic spine. Midline sternotomy wires. IMPRESSION: Borderline to mildly enlarged cardiac silhouette, without acute cardiopulmonary abnormalities. Signed by: Dr. Feliberto Rob M.D. on 03/26/2019 1:28 PM
--- NOTE | 2019-03-26 13:43 | NUR ---
R.T IN ROOM, BUT PT IS ACTIVELY VOMITING. DR. ABBOTT INFORMED. SPOUSE AT STATION TO REQUEST WATER. INFORMED HER NOT TO GIVE HIM ANYTHING IF HE'S VOMITING
[2019-03-26] MEDS ORDERED: ONDANSETRON HCL INJ 2MG/ML 2ML 2 MG/ML VIAL IV ONE (13:46)
[2019-03-26 14:00] LABS: BASOPHILS % 0.5 % (0.0-1.0); EOSINOPHILS # (AUTO) 0.2 (0.0-0.4); EOSINOPHILS % 1.9 % (0.0-6.0); HEMATOCRIT 38.7 % (38.2-49.6); HEMOGLOBIN 11.8 g/dL (14.0-18.0); LYMPHOCYTES # (AUTO) 1.8 (1.0-3.2); LYMPHOCYTES % 23.1 % (18.0-39.1); MEAN CORPUSCULAR HEMOGLOBIN 25.2 pg (28-32); MEAN CORPUSCULAR HGB CONC 30.5 g/dL (31-35); MEAN CORPUSCULAR VOLUME 82.7 fL (81-99); MONOCYTES # (AUTO) 0.4 (0.2-0.8); MONOCYTES % 5.2 % (4.4-11.3); NEUTROPHILS # (AUTO) 5.3 (2.1-6.9); NEUTROPHILS % 68.8 % (38.7-80.0); PLATELET COUNT 422 x10e3/uL (140-360); RED BLOOD COUNT 4.68 x10e6/uL (4.3-5.7); RED CELL DISTRIBUTION WIDTH 14.6 % (11.7-14.4)
--- NOTE | 2019-03-26 14:00 | NUR ---
ZOFRAN GIVEN FOR NAUSEA. PT HAS TOLERATED WELL.
[2019-03-26 14:29] LABS: ALANINE AMINOTRANSFERASE 14 IU/L (0-55); ALBUMIN 3.4 g/dL (3.5-5.0); ALBUMIN/GLOBULIN RATIO 0.7 (0.8-2.0); ALKALINE PHOSPHATASE 73 IU/L (40-150); ANION GAP 14.3 mmol/L (8-16); BLOOD UREA NITROGEN 9 mg/dL (7-26); BUN/CREATININE RATIO 10 (6-25); CALCIUM 9.5 mg/dL (8.4-10.2); CARBON DIOXIDE 31 mmol/L (22-29); CHLORIDE 96 mmol/L (98-107); CREATINE KINASE 129 IU/L (30-200); CREATININE, SERUM 0.87 mg/dL (0.72-1.25); EST GLOMERULAR FILTRATION RATE > 60 ML/MIN (60-); GLUCOSE 312 mg/dL (74-118); MAGNESIUM 2.1 MG/DL (1.3-2.1); POTASSIUM 4.3 mmol/L (3.5-5.1); SODIUM 137 mmol/L (136-145)
== END 2019-03-26 15:16 | disposition home or self-care (01) ==
LOC: ER 12:24
DX: J20.8 Acute bronchitis due to other specified organisms (principal); E11.65 Type 2 diabetes mellitus with hyperglycemia; Z79.4 Long term (current) use of insulin; I11.0 Hypertensive heart disease with heart failure; I50.9 Heart failure, unspecified; I25.10 Atherosclerotic heart disease of native coronary artery without angina pectoris; E78.5 Hyperlipidemia, unspecified; M54.9 Dorsalgia, unspecified; L89.612 Pressure ulcer of right heel, stage 2; M51.36 Other intervertebral disc degeneration, lumbar region
CPT/HCPCS: 36415; 71046; 80053; 82550; 82553; 82948; 83735; 83880; 84484; 85025; 87040; 93005; 94640; 99284; J2405; J7030

== ENCOUNTER 2021-03-03 22:45 | Inpatient (IN) | payer MEDICARE, OTHER ==
[~2021-03-03] VITALS: Ht 152.4 cm; Wt 176.6 kg
[2021-03-03] MEDS ORDERED: FUROSEMIDE INJ 10 MG/ML 4 ML VIAL IV ONE (23:00)
[2021-03-03 23:30] LABS: BASOPHILS % 0.5 % (0.0-1.0); EOSINOPHILS # (AUTO) 0.2 (0.0-0.4); EOSINOPHILS % 2.4 % (0.0-6.0); HEMATOCRIT 34.2 % (38.2-49.6); HEMOGLOBIN 10.2 g/dL (14.0-18.0); LYMPHOCYTES # (AUTO) 1.8 (1.0-3.2); LYMPHOCYTES % 20.5 % (18.0-39.1); MEAN CORPUSCULAR HEMOGLOBIN 24.5 pg (28-32); MEAN CORPUSCULAR HGB CONC 29.8 g/dL (31-35); MEAN CORPUSCULAR VOLUME 82.2 fL (81-99); MONOCYTES # (AUTO) 0.8 (0.2-0.8); MONOCYTES % 9.2 % (4.4-11.3); NEUTROPHILS # (AUTO) 5.9 (2.1-6.9); NEUTROPHILS % 66.7 % (38.7-80.0); PLATELET COUNT 425 x10e3/uL (140-360); RED BLOOD COUNT 4.16 x10e6/uL (4.3-5.7); RED CELL DISTRIBUTION WIDTH 16.5 % (11.7-14.4)
[2021-03-03 23:49] LABS: ALANINE AMINOTRANSFERASE 33 IU/L (0-55); ALBUMIN 3.4 g/dL (3.5-5.0); ALBUMIN/GLOBULIN RATIO 0.7 (0.8-2.0); ALKALINE PHOSPHATASE 90 IU/L (40-150); ANION GAP 19.6 mmol/L (8-16); BLOOD UREA NITROGEN 13 mg/dL (7-26); BUN/CREATININE RATIO 13 (6-25); CALCIUM 9.1 mg/dL (8.4-10.2); CARBON DIOXIDE 25 mmol/L (22-29); CHLORIDE 96 mmol/L (98-107); CREATINE KINASE 192 IU/L (30-200); CREATININE, SERUM 0.99 mg/dL (0.72-1.25); EST GLOMERULAR FILTRATION RATE 78 ML/MIN (60-); GLUCOSE 332 mg/dL (74-118); POTASSIUM 4.6 mmol/L (3.5-5.1); SODIUM 136 mmol/L (136-145)
[2021-03-04] VITALS (9 sets, daily range): BP systolic 114–152; BP diastolic 56–90
[2021-03-04 00:59] LABS: ABG HCO3 32 mmol/L (22-26); ABG PCO2 50 mmHg (35-45); ABG PH 7.42 (7.35-7.45); ABG PO2 120 mmHg (80-105); ABG TCO2 33
[2021-03-04] MEDS ORDERED: HYDROCODONE/APAP 10MG-325MG TAB PO ONE (01:00)
[2021-03-04] MEDS ORDERED: PLAVIX75 MG PO (03:56)
[2021-03-04] MEDS ORDERED: NITROGLYCERIN0.4 MG SL (03:56)
[2021-03-04] MEDS ORDERED: LASIX40 MG PO (03:56)
[2021-03-04] MEDS ORDERED: HYDRALAZINE HCL 20 MG/ML VIAL IV PRN (08:45)
[2021-03-04] MEDS ORDERED: NITROGLYCERIN 0.4 MG SUBL SL PRN (09:30)
[2021-03-04] MEDS: MORPHINE SULFATE 30 MG TAB ER PO SCH ×2 (09:30→21:43)
[2021-03-04 10:27] LABS: CLARITY,URINE CLEAR (CLEAR); COLOR,URINE YELLOW (YELLOW); LEUKOCYTE ESTERASE ,URINE NEGATIVE (NEGATIVE); NITRITE,URINE NEGATIVE (NEGATIVE)
[2021-03-04 10:28] LABS: KETONES,URINE NEGATIVE (NEGATIVE); PROTEIN,URINE DIPSTICK NEGATIVE (NEGATIVE); URINE UROBILINOGEN 0.2 mg/dL (0.2 - 1)
[2021-03-04 11:01] LABS: RBC,URINE 0-5 /HPF (0-5); WBC,URINE (MAN) 0-5 /HPF (0-5)
[2021-03-04 11:03] LABS: EPITHELIAL CELLS,URINE RARE /LPF; TRANSITIONAL EPI CELLS,URINE FEW
[2021-03-04 11:24] LABS: CREATINE KINASE MB 3.6 ng/mL (0-5.0)
[2021-03-04] MEDS ORDERED: INSULIN LISPRO 100 UNIT/1 ML 3ML VIAL SQ SCH (11:30)
[2021-03-04] MEDS: HYDROCODONE/APAP 10MG-325MG TAB PO PRN (13:57)
[2021-03-04] MEDS: FUROSEMIDE INJ 10 MG/ML 4 ML VIAL IV SCH ×2 (14:00→21:43)
[2021-03-04] MEDS ORDERED: DEXTROSE 50% SYRINGE 50 ML IV PRN (16:30)
[2021-03-04] MEDS: INSULIN LISPRO 100 UNIT/1 ML 3ML VIAL SQ SCH ×2 (16:30→21:22)
[2021-03-04] MEDS: CYCLOBENZAPRINE HCL 10 MG TAB PO SCH ×2 (16:41→21:42)
[2021-03-04] MEDS: GABAPENTIN 300 MG CAP PO SCH ×2 (16:41→21:42)
[2021-03-04] MEDS: METOPROLOL TARTRATE 50 MG TAB PO SCH (16:42)
[2021-03-04 18:59] LABS: CREATINE KINASE MB 3.5 ng/mL (0-5.0)
[2021-03-04] MEDS: ATORVASTATIN 40 MG TAB PO SCH (21:42)
[2021-03-04] MEDS: NIFEDIPINE CR 30 MG TAB PO SCH (21:42)
[2021-03-05] VITALS (8 sets, daily range): BP systolic 97–144; BP diastolic 45–82
[2021-03-05] MEDS: HYDROCODONE/APAP 10MG-325MG TAB PO PRN ×4 (01:23→23:56)
[2021-03-05 05:11] LABS: BASOPHILS % 0.4 % (0.0-1.0); EOSINOPHILS # (AUTO) 0.2 (0.0-0.4); HEMATOCRIT 31.4 % (38.2-49.6); HEMOGLOBIN 9.3 g/dL (14.0-18.0); LYMPHOCYTES # (AUTO) 1.6 (1.0-3.2); LYMPHOCYTES % 28.9 % (18.0-39.1); MEAN CORPUSCULAR HEMOGLOBIN 24.5 pg (28-32); MEAN CORPUSCULAR HGB CONC 29.6 g/dL (31-35); MEAN CORPUSCULAR VOLUME 82.8 fL (81-99); MONOCYTES # (AUTO) 0.6 (0.2-0.8); MONOCYTES % 10.2 % (4.4-11.3); NEUTROPHILS # (AUTO) 3.2 (2.1-6.9); PLATELET COUNT 363 x10e3/uL (140-360); RED BLOOD COUNT 3.79 x10e6/uL (4.3-5.7); RED CELL DISTRIBUTION WIDTH 16.2 % (11.7-14.4)
[2021-03-05 05:52] LABS: ALBUMIN/GLOBULIN RATIO 0.7 (0.8-2.0); ANION GAP 13.1 mmol/L (8-16); CALCIUM 8.5 mg/dL (8.4-10.2); CHOL/HDL RATIO 2.5 (3.9-4.7); CREATININE, SERUM 0.85 mg/dL (0.72-1.25); POTASSIUM 4.1 mmol/L (3.5-5.1)
[2021-03-05 06:33] LABS: ANISOCYTOSIS SLIGHT; EOSINOPHILS % (MANUAL) 2 % (0-7); LYMPHOCYTES % (MANUAL) 31 % (19-48); MONOCYTES % (MANUAL) 11 % (3.4-9.0); NEUTROPHILS % (MANUAL) 55 % (40-74); PLATELET ESTIMATE SLIGHTLY INCREASED; PLATELET MORPHOLOGY COMMENT NORMAL; RBC MORPHOLOGY COMMENT NORMAL
[2021-03-05] MEDS: FUROSEMIDE INJ 10 MG/ML 4 ML VIAL IV SCH ×3 (06:48→22:03)
[2021-03-05] MEDS: INSULIN GLARGINE 100 UNITS/ML VIAL SQ SCH (09:00)
[2021-03-05] MEDS: INSULIN LISPRO 100 UNIT/1 ML 3ML VIAL SQ SCH ×4 (09:00→22:03)
[2021-03-05] MEDS: ASPIRIN 81 MG CHEW TAB PO SCH (09:04)
[2021-03-05] MEDS: GABAPENTIN 300 MG CAP PO SCH ×3 (09:05→22:02)
[2021-03-05] MEDS: METOPROLOL TARTRATE 50 MG TAB PO SCH ×2 (09:05→17:00)
[2021-03-05] MEDS: CYCLOBENZAPRINE HCL 10 MG TAB PO SCH ×3 (09:05→22:02)
[2021-03-05] MEDS: ESCITALOPRAM OXALATE 10 MG TAB PO SCH (09:05)
[2021-03-05] MEDS: CLOPIDOGREL BISULFATE 75 MG TAB PO SCH (09:06)
[2021-03-05] MEDS: LISINOPRIL 2.5 MG TAB PO SCH (09:06)
[2021-03-05] MEDS: MORPHINE SULFATE 30 MG TAB ER PO SCH ×2 (09:07→22:03)
[2021-03-05] MEDS: NIFEDIPINE CR 30 MG TAB PO SCH (22:02)
[2021-03-05] MEDS: ATORVASTATIN 40 MG TAB PO SCH (22:02)
[2021-03-06] VITALS (8 sets, daily range): BP systolic 100–158; BP diastolic 49–77
[2021-03-06] MEDS: SODIUM HYPOCHLORITE 0.25% 480 ML SOLN IR SCH ×2 (00:19→15:25)
[2021-03-06] MEDS: FUROSEMIDE INJ 10 MG/ML 4 ML VIAL IV SCH (06:00)
[2021-03-06] MEDS: ASPIRIN 81 MG CHEW TAB PO SCH (08:57)
[2021-03-06] MEDS: CYCLOBENZAPRINE HCL 10 MG TAB PO SCH ×3 (08:57→21:34)
[2021-03-06] MEDS: ESCITALOPRAM OXALATE 10 MG TAB PO SCH (08:58)
[2021-03-06] MEDS: METOPROLOL TARTRATE 50 MG TAB PO SCH ×2 (08:58→16:20)
[2021-03-06] MEDS: GABAPENTIN 300 MG CAP PO SCH ×3 (08:58→21:34)
[2021-03-06] MEDS: LISINOPRIL 2.5 MG TAB PO SCH (08:59)
[2021-03-06] MEDS: CLOPIDOGREL BISULFATE 75 MG TAB PO SCH (08:59)
[2021-03-06] MEDS: INSULIN GLARGINE 100 UNITS/ML VIAL SQ SCH (09:00)
[2021-03-06] MEDS: MORPHINE SULFATE 30 MG TAB ER PO SCH ×2 (09:00→21:30)
[2021-03-06] MEDS: INSULIN LISPRO 100 UNIT/1 ML 3ML VIAL SQ SCH ×4 (09:00→21:00)
[2021-03-06] MEDS: HYDROCODONE/APAP 10MG-325MG TAB PO PRN ×2 (10:10→16:20)
[2021-03-06 10:38] LABS: BASOPHILS % 0.5 % (0.0-1.0); EOSINOPHILS # (AUTO) 0.2 (0.0-0.4); EOSINOPHILS % 3.2 % (0.0-6.0); HEMATOCRIT 30.8 % (38.2-49.6); HEMOGLOBIN 8.9 g/dL (14.0-18.0); LYMPHOCYTES # (AUTO) 1.5 (1.0-3.2); MEAN CORPUSCULAR HEMOGLOBIN 24.1 pg (28-32); MEAN CORPUSCULAR HGB CONC 28.9 g/dL (31-35); MEAN CORPUSCULAR VOLUME 83.2 fL (81-99); MONOCYTES # (AUTO) 0.5 (0.2-0.8); MONOCYTES % 8.7 % (4.4-11.3); NEUTROPHILS # (AUTO) 3.7 (2.1-6.9); NEUTROPHILS % 61.8 % (38.7-80.0); PLATELET COUNT 365 x10e3/uL (140-360); RED CELL DISTRIBUTION WIDTH 16.1 % (11.7-14.4)
[2021-03-06 10:53] LABS: ANION GAP 13.9 mmol/L (8-16); CALCIUM 8.3 mg/dL (8.4-10.2); CREATININE, SERUM 0.88 mg/dL (0.72-1.25); POTASSIUM 3.9 mmol/L (3.5-5.1)
[2021-03-06] MEDS ORDERED: DOCUSATE SODIUM 100 MG CAP PO PRN (11:30)
[2021-03-06] MEDS: FUROSEMIDE INJ 100 MG in SODIUM CHLORIDE 0.9% 100 ML 90 ML IV SCH ×2 (12:19→21:54)
[2021-03-06] MEDS: NIFEDIPINE CR 30 MG TAB PO SCH (21:00)
[2021-03-06] MEDS: ATORVASTATIN 40 MG TAB PO SCH (21:34)
[2021-03-07] VITALS (8 sets, daily range): BP systolic 105–154; BP diastolic 50–74
[2021-03-07 05:42] LABS: BASOPHILS % 0.6 % (0.0-1.0); EOSINOPHILS # (AUTO) 0.2 (0.0-0.4); EOSINOPHILS % 3.3 % (0.0-6.0); HEMOGLOBIN 9.4 g/dL (14.0-18.0); LYMPHOCYTES # (AUTO) 1.9 (1.0-3.2); LYMPHOCYTES % 28.1 % (18.0-39.1); MEAN CORPUSCULAR HEMOGLOBIN 24.4 pg (28-32); MEAN CORPUSCULAR HGB CONC 29.4 g/dL (31-35); MEAN CORPUSCULAR VOLUME 83.1 fL (81-99); MONOCYTES # (AUTO) 0.6 (0.2-0.8); MONOCYTES % 8.8 % (4.4-11.3); NEUTROPHILS # (AUTO) 3.9 (2.1-6.9); NEUTROPHILS % 58.8 % (38.7-80.0); PLATELET COUNT 386 x10e3/uL (140-360); RED BLOOD COUNT 3.85 x10e6/uL (4.3-5.7); RED CELL DISTRIBUTION WIDTH 15.9 % (11.7-14.4)
[2021-03-07] MEDS: HYDROCODONE/APAP 10MG-325MG TAB PO PRN ×3 (05:47→18:32)
[2021-03-07 06:04] LABS: ANION GAP 14.9 mmol/L (8-16); CALCIUM 8.7 mg/dL (8.4-10.2); CREATININE, SERUM 0.92 mg/dL (0.72-1.25); POTASSIUM 3.9 mmol/L (3.5-5.1)
[2021-03-07] MEDS: FUROSEMIDE INJ 100 MG in SODIUM CHLORIDE 0.9% 100 ML 90 ML IV SCH ×3 (07:00→22:05)
[2021-03-07] MEDS: INSULIN LISPRO 100 UNIT/1 ML 3ML VIAL SQ SCH ×4 (07:30→20:49)
[2021-03-07] MEDS: CYCLOBENZAPRINE HCL 10 MG TAB PO SCH ×3 (09:00→20:48)
[2021-03-07] MEDS: SODIUM HYPOCHLORITE 0.25% 480 ML SOLN IR SCH (09:00)
[2021-03-07] MEDS: INSULIN GLARGINE 100 UNITS/ML VIAL SQ SCH (09:00)
[2021-03-07] MEDS: LISINOPRIL 2.5 MG TAB PO SCH (09:00)
[2021-03-07] MEDS: METOPROLOL TARTRATE 50 MG TAB PO SCH ×2 (09:00→16:36)
[2021-03-07] MEDS: ASPIRIN 81 MG CHEW TAB PO SCH (09:00)
[2021-03-07] MEDS: GABAPENTIN 300 MG CAP PO SCH ×3 (09:00→20:48)
[2021-03-07] MEDS: ESCITALOPRAM OXALATE 10 MG TAB PO SCH (09:00)
[2021-03-07] MEDS: CLOPIDOGREL BISULFATE 75 MG TAB PO SCH (09:00)
[2021-03-07] MEDS: MORPHINE SULFATE 30 MG TAB ER PO SCH ×2 (09:30→20:49)
[2021-03-07] MEDS: NIFEDIPINE CR 30 MG TAB PO SCH (20:42)
[2021-03-07] MEDS: ATORVASTATIN 40 MG TAB PO SCH (20:48)
[2021-03-08] VITALS (8 sets, daily range): BP systolic 99–145; BP diastolic 62–87
[2021-03-08] MEDS: HYDROCODONE/APAP 10MG-325MG TAB PO PRN ×2 (02:35→21:55)
[2021-03-08] MEDS: INSULIN LISPRO 100 UNIT/1 ML 3ML VIAL SQ SCH ×4 (07:30→20:57)
[2021-03-08] MEDS: INSULIN GLARGINE 100 UNITS/ML VIAL SQ SCH (09:46)
[2021-03-08] MEDS: ESCITALOPRAM OXALATE 10 MG TAB PO SCH (09:47)
[2021-03-08] MEDS: CYCLOBENZAPRINE HCL 10 MG TAB PO SCH ×3 (09:47→21:04)
[2021-03-08] MEDS: SODIUM HYPOCHLORITE 0.25% 480 ML SOLN IR SCH (09:47)
[2021-03-08] MEDS: ASPIRIN 81 MG CHEW TAB PO SCH (09:47)
[2021-03-08] MEDS: LISINOPRIL 2.5 MG TAB PO SCH (09:48)
[2021-03-08] MEDS: CLOPIDOGREL BISULFATE 75 MG TAB PO SCH (09:48)
[2021-03-08] MEDS: METOPROLOL TARTRATE 50 MG TAB PO SCH ×2 (09:48→18:41)
[2021-03-08] MEDS: GABAPENTIN 300 MG CAP PO SCH ×3 (09:48→21:04)
[2021-03-08] MEDS: MORPHINE SULFATE 30 MG TAB ER PO SCH ×2 (09:49→21:04)
[2021-03-08] MEDS: FUROSEMIDE INJ 100 MG in SODIUM CHLORIDE 0.9% 100 ML 90 ML IV SCH (14:14)
[2021-03-08 15:15] LABS: ANION GAP 14.2 mmol/L (8-16); CALCIUM 8.7 mg/dL (8.4-10.2); CREATININE, SERUM 0.96 mg/dL (0.72-1.25); POTASSIUM 4.2 mmol/L (3.5-5.1)
[2021-03-08] MEDS: ATORVASTATIN 40 MG TAB PO SCH (21:04)
[2021-03-09] VITALS (8 sets, daily range): BP systolic 108–163; BP diastolic 66–80
[2021-03-09] MEDS: FUROSEMIDE INJ 100 MG in SODIUM CHLORIDE 0.9% 100 ML 90 ML IV SCH ×2 (00:26→10:57)
[2021-03-09] MEDS: HYDROCODONE/APAP 10MG-325MG TAB PO PRN ×3 (05:08→23:30)
[2021-03-09 06:05] LABS: BASOPHILS % 0.4 % (0.0-1.0); EOSINOPHILS # (AUTO) 0.3 (0.0-0.4); EOSINOPHILS % 4.4 % (0.0-6.0); HEMATOCRIT 35.2 % (38.2-49.6); HEMOGLOBIN 10.2 g/dL (14.0-18.0); LYMPHOCYTES # (AUTO) 1.8 (1.0-3.2); LYMPHOCYTES % 23.6 % (18.0-39.1); MEAN CORPUSCULAR HEMOGLOBIN 24.2 pg (28-32); MEAN CORPUSCULAR VOLUME 83.6 fL (81-99); MONOCYTES # (AUTO) 0.6 (0.2-0.8); MONOCYTES % 8.4 % (4.4-11.3); NEUTROPHILS # (AUTO) 4.7 (2.1-6.9); NEUTROPHILS % 62.7 % (38.7-80.0); PLATELET COUNT 402 x10e3/uL (140-360); RED BLOOD COUNT 4.21 x10e6/uL (4.3-5.7); RED CELL DISTRIBUTION WIDTH 16.1 % (11.7-14.4)
[2021-03-09 06:19] LABS: ANION GAP 16.4 mmol/L (8-16); CREATININE, SERUM 0.89 mg/dL (0.72-1.25); POTASSIUM 4.4 mmol/L (3.5-5.1)
[2021-03-09] MEDS: INSULIN LISPRO 100 UNIT/1 ML 3ML VIAL SQ SCH ×4 (08:12→20:12)
[2021-03-09] MEDS: ASPIRIN 81 MG CHEW TAB PO SCH (10:57)
[2021-03-09] MEDS: SODIUM HYPOCHLORITE 0.25% 480 ML SOLN IR SCH (10:57)
[2021-03-09] MEDS: ESCITALOPRAM OXALATE 10 MG TAB PO SCH (10:58)
[2021-03-09] MEDS: CYCLOBENZAPRINE HCL 10 MG TAB PO SCH ×3 (10:58→20:10)
[2021-03-09] MEDS: GABAPENTIN 300 MG CAP PO SCH ×3 (11:00→20:10)
[2021-03-09] MEDS: LISINOPRIL 2.5 MG TAB PO SCH (11:00)
[2021-03-09] MEDS: CLOPIDOGREL BISULFATE 75 MG TAB PO SCH (11:00)
[2021-03-09] MEDS: METOPROLOL TARTRATE 50 MG TAB PO SCH ×2 (11:00→16:08)
[2021-03-09] MEDS: INSULIN GLARGINE 100 UNITS/ML VIAL SQ SCH (11:01)
[2021-03-09] MEDS: MORPHINE SULFATE 30 MG TAB ER PO SCH ×2 (11:02→21:13)
[2021-03-09] MEDS ORDERED: ACETAZOLAMIDE 500 MG CAP PO ONE (13:15)
[2021-03-09] MEDS: FUROSEMIDE INJ 10 MG/ML 4 ML VIAL IV SCH (20:08)
[2021-03-09] MEDS: ATORVASTATIN 40 MG TAB PO SCH (20:10)
[2021-03-09] MEDS ORDERED: INSULIN GLARGINE 100 UNITS/ML VIAL SQ ONE (21:00)
[2021-03-10] VITALS (8 sets, daily range): BP systolic 101–129; BP diastolic 56–82
[2021-03-10 04:59] LABS: BASOPHILS % 0.3 % (0.0-1.0); EOSINOPHILS # (AUTO) 0.3 (0.0-0.4); EOSINOPHILS % 4.5 % (0.0-6.0); HEMATOCRIT 33.8 % (38.2-49.6); LYMPHOCYTES # (AUTO) 1.8 (1.0-3.2); LYMPHOCYTES % 29.2 % (18.0-39.1); MEAN CORPUSCULAR HEMOGLOBIN 24.5 pg (28-32); MEAN CORPUSCULAR HGB CONC 29.6 g/dL (31-35); MEAN CORPUSCULAR VOLUME 82.8 fL (81-99); MONOCYTES # (AUTO) 0.6 (0.2-0.8); MONOCYTES % 10.3 % (4.4-11.3); NEUTROPHILS # (AUTO) 3.3 (2.1-6.9); PLATELET COUNT 373 x10e3/uL (140-360); RED BLOOD COUNT 4.08 x10e6/uL (4.3-5.7); RED CELL DISTRIBUTION WIDTH 16.1 % (11.7-14.4)
[2021-03-10 05:24] LABS: ANION GAP 12.9 mmol/L (8-16); CALCIUM 8.7 mg/dL (8.4-10.2); CREATININE, SERUM 0.98 mg/dL (0.72-1.25); POTASSIUM 3.9 mmol/L (3.5-5.1)
[2021-03-10] MEDS: HYDROCODONE/APAP 10MG-325MG TAB PO PRN ×3 (05:30→18:34)
[2021-03-10] MEDS: ASPIRIN 81 MG CHEW TAB PO SCH (09:07)
[2021-03-10] MEDS: ESCITALOPRAM OXALATE 10 MG TAB PO SCH (09:08)
[2021-03-10] MEDS: INSULIN LISPRO 100 UNIT/1 ML 3ML VIAL SQ SCH ×5 (09:08→21:45)
[2021-03-10] MEDS: CYCLOBENZAPRINE HCL 10 MG TAB PO SCH ×3 (09:08→21:45)
[2021-03-10] MEDS: FUROSEMIDE INJ 10 MG/ML 4 ML VIAL IV SCH ×2 (09:08→21:45)
[2021-03-10] MEDS: INSULIN GLARGINE 100 UNITS/ML VIAL SQ SCH (09:08)
[2021-03-10] MEDS: METOPROLOL TARTRATE 50 MG TAB PO SCH ×2 (09:09→16:45)
[2021-03-10] MEDS: CLOPIDOGREL BISULFATE 75 MG TAB PO SCH (09:09)
[2021-03-10] MEDS: LISINOPRIL 2.5 MG TAB PO SCH (09:09)
[2021-03-10] MEDS: GABAPENTIN 300 MG CAP PO SCH ×3 (09:09→21:45)
[2021-03-10] MEDS: MORPHINE SULFATE 30 MG TAB ER PO SCH ×2 (09:10→21:45)
[2021-03-10] MEDS ORDERED: INSULIN GLARGINE 100 UNITS/ML VIAL SQ SCH ×2 (14:00→21:00)
[2021-03-10] MEDS: SODIUM HYPOCHLORITE 0.25% 480 ML SOLN IR SCH (17:46)
[2021-03-10] MEDS: ATORVASTATIN 40 MG TAB PO SCH (21:45)
[2021-03-11] VITALS: BP 103/64
[2021-03-11] MEDS: HYDROCODONE/APAP 10MG-325MG TAB PO PRN ×2 (01:04→07:03)
[2021-03-11 04:00] VITALS: BP 110/67
[2021-03-11 05:05] LABS: BASOPHILS % 0.4 % (0.0-1.0); EOSINOPHILS # (AUTO) 0.3 (0.0-0.4); EOSINOPHILS % 4.9 % (0.0-6.0); HEMATOCRIT 34.2 % (38.2-49.6); HEMOGLOBIN 10.1 g/dL (14.0-18.0); LYMPHOCYTES # (AUTO) 1.8 (1.0-3.2); LYMPHOCYTES % 27.1 % (18.0-39.1); MEAN CORPUSCULAR HEMOGLOBIN 24.5 pg (28-32); MEAN CORPUSCULAR HGB CONC 29.5 g/dL (31-35); MEAN CORPUSCULAR VOLUME 82.8 fL (81-99); MONOCYTES # (AUTO) 0.6 (0.2-0.8); NEUTROPHILS # (AUTO) 3.9 (2.1-6.9); NEUTROPHILS % 58.2 % (38.7-80.0); PLATELET COUNT 353 x10e3/uL (140-360); RED BLOOD COUNT 4.13 x10e6/uL (4.3-5.7); RED CELL DISTRIBUTION WIDTH 16.1 % (11.7-14.4)
[2021-03-11 05:21] LABS: ANION GAP 10.8 mmol/L (8-16); CALCIUM 8.7 mg/dL (8.4-10.2); CREATININE, SERUM 1.01 mg/dL (0.72-1.25); POTASSIUM 3.8 mmol/L (3.5-5.1)
[2021-03-11 08:00] VITALS: BP 102/51
[2021-03-11 08:39] VITALS: BP 102/51
[2021-03-11] MEDS: INSULIN LISPRO 100 UNIT/1 ML 3ML VIAL SQ SCH ×6 (08:40→16:30)
[2021-03-11] MEDS: CYCLOBENZAPRINE HCL 10 MG TAB PO SCH ×2 (08:48→16:49)
[2021-03-11] MEDS: FUROSEMIDE INJ 10 MG/ML 4 ML VIAL IV SCH (08:48)
[2021-03-11] MEDS: ASPIRIN 81 MG CHEW TAB PO SCH (08:48)
[2021-03-11] MEDS: ESCITALOPRAM OXALATE 10 MG TAB PO SCH (08:49)
[2021-03-11] MEDS: METOPROLOL TARTRATE 50 MG TAB PO SCH ×2 (08:49→16:49)
[2021-03-11] MEDS: CLOPIDOGREL BISULFATE 75 MG TAB PO SCH (08:49)
[2021-03-11] MEDS: GABAPENTIN 300 MG CAP PO SCH ×2 (08:49→16:49)
[2021-03-11] MEDS: MORPHINE SULFATE 30 MG TAB ER PO SCH (08:50)
[2021-03-11] MEDS: LISINOPRIL 2.5 MG TAB PO SCH (11:36)
[2021-03-11 11:42] VITALS: BP 144/85
[2021-03-11 16:00] VITALS: BP 113/69
[2021-03-11] MEDS ORDERED: ALDACTONE25 MG PO (18:03)
[2021-03-11] MEDS ORDERED: BUMETANIDE1 MG PO (18:03)
[2021-03-11] MEDS ORDERED: LANTUS 3ML100 UNITS/ SQ (18:05)
[2021-03-11] MEDS ORDERED: HUMALOG KW200 UNIT/1 SQ (18:12)
== END 2021-03-11 19:10 | disposition home or self-care (01) | DRG 292 ==
LOC: ER 22:52 → ERHOLD 03-04 00:57 → MED/SURG2 03-04 03:06 → INTOOBSV 03-05 09:19 → OBSVTOIN 03-05 09:19
PROVIDERS: ADMIT Internal Medicine; ATTEND Internal Medicine
DX: I11.0 Hypertensive heart disease with heart failure (principal); Z68.45 Body mass index [BMI] 70 or greater, adult; L97.419 Non-pressure chronic ulcer of right heel and midfoot with unspecified severity; L97.414 Non-pressure chronic ulcer of right heel and midfoot with necrosis of bone; M86.8X7 Other osteomyelitis, ankle and foot; I50.33 Acute on chronic diastolic (congestive) heart failure; E66.01 Morbid (severe) obesity due to excess calories; I25.9 Chronic ischemic heart disease, unspecified; E11.51 Type 2 diabetes mellitus with diabetic peripheral angiopathy without gangrene; Z79.899 Other long term (current) drug therapy; I25.10 Atherosclerotic heart disease of native coronary artery without angina pectoris; Z95.1 Presence of aortocoronary bypass graft; I89.0 Lymphedema, not elsewhere classified; E11.621 Type 2 diabetes mellitus with foot ulcer; E11.40 Type 2 diabetes mellitus with diabetic neuropathy, unspecified; E11.69 Type 2 diabetes mellitus with other specified complication; Z91.19 Patient's noncompliance with other medical treatment and regimen; R06.03 Acute respiratory distress; Z86.73 Personal history of transient ischemic attack (TIA), and cerebral infarction without residual deficits; G47.33 Obstructive sleep apnea (adult) (pediatric); I87.2 Venous insufficiency (chronic) (peripheral)
CPT/HCPCS: 36415; 36600; 71045; 78315; 80048; 80053; 80061; 81001; 82550; 82553; 82805; 82948; 83036; 83880; 84484; 85025; 93005; 93306; 93970; 96366; 99251; 99284; A9503; G0378; J1815; J1940; U0002